=== PATIENT | male | born 1950 | race Caucasian/White ===

== ENCOUNTER 2019-11-23 07:00 | Day surgery (SDC) | payer OTHER ==
[2019-11-21 16:52] LABS: Absolute Lymphocytes (CBC) 2.8 K/uL (0.7-4.9); Basophils % 0.5 % (0-1.3); Lymphocytes % 29.6 % (15.3-44.8); MPV 7.8 fL (7.6-11.3); RBC Red Blood Cell Count 4.38 M/uL (4.33-5.43)
[2019-11-23] MEDS ORDERED: NA CHLORIDE 0.9% 500 ML ONE (07:19)
[2019-11-23] MEDS ORDERED: FLUMAZENIL 0.1 MG/ML (5 mL VIAL) IV ONE (07:40)
[2019-11-23] MEDS ORDERED: MIDAZOLAM HCL 5 MG/5 ML INJ ONE ×2 (07:41)
[2019-11-23] MEDS ORDERED: ATROPINE SULF 1 MG/10 ML SYR IV ONE (07:41)
[2019-11-23 09:13] VITALS: O2SAT 97
[2019-11-23 09:50] VITALS: BP 100/59; TEMP 97.4
--- NOTE | 2019-11-23 12:15 | OP ---
Surgeon: Raj Olivarez MD Procedure: Direct current cardioversion. Indication: Atrial flutter refractory to amiodarone. The patient had been on Xarelto for at least 3 weeks. Procedure In Detail: The patient was brought to the cardiac laborer brush clearing fasting, sedated with Versed 7 mg, titrated to an adequate level of sedation. Anterior-posterior paddles were used, applied to the chest with adhesive. Anterior-posterior single shock was given through the paddles. Synchronized wi th the QRS complex. This resulted in sinus rhythm. 70 joules was used. At the end of the procedure , there were no complications. No blood loss. BRIAN/MODL Voice ID: [id number] Report ID: [id number]
--- NOTE | 2019-11-23 14:00 | EKG ---
Test Date: 2019-11-23 Test Time: 07:55:49 Automotive Electrical Helper: HUSSEIN MEASUREMENT RESULTS: Intervals: Rate: 60 HI: 202 QRSD: 150 QT: 460 QTc: 460 [place]: P: 76 HI: 202 QRS: -56 T: -11 INTERPRETIVE STATEMENTS: Sinus rhythm with occasional premature ventricular complexes Right bundle branch block Left axis Abnormal ECG Compared to ECG 11/03/2019 14:46:17 Ventricular premature complex(es) now present Atrial fibrillation no longer present Electronically Signed On 11-23-19 13:58:54 BILLING SERVICES MANAGER by Raj Olivarez
== END 2019-11-23 09:35 | disposition home health service (06) ==
LOC: CCL 07:00
PROVIDERS: ATTEND Internal Medicine
DX: I48.92 Unspecified atrial flutter (principal); I25.10 Atherosclerotic heart disease of native coronary artery without angina pectoris; Z79.01 Long term (current) use of anticoagulants
CPT/HCPCS: 93005; 85025; 80048; 36415; 85730; 92960; J2250 ×2; J7040

== ENCOUNTER 2019-12-12 07:45 | Emergency (ER) | payer OTHER ==
[2019-12-12] MEDS ORDERED: NA CHLORIDE 0.9% 1,000 ML ONE (08:34)
[2019-12-12 08:38] LABS: Absolute Lymphocytes (CBC) 2.2 K/uL (0.7-4.9); Basophils % 0.3 % (0-1.3); Hematocrit 37.3 % (39.6-49.0); Lymphocytes % 22.3 % (15.3-44.8); MPV 7.8 fL (7.6-11.3)
[2019-12-12 08:40] LABS: Protime INR 1.9
[2019-12-12 08:59] LABS: Albumin 3.2 g/dL (3.4-5.0); Bilirubin Direct 0.3 mg/dL (0-0.2); Bilirubin Total 0.8 mg/dL (0.2-1.0); Magnesium 2.1 mg/dL (1.8-2.4); Potassium 3.9 mmol/L (3.5-5.1); Protein, Total 7.1 g/dL (6.4-8.2)
[2019-12-12 09:02] LABS: Troponin (Emerg Dept Use Only) 23.5 ng/mL (0.0-0.045)
--- NOTE | 2019-12-12 09:20 | EKG ---
Test Date: 2019-12-12 Test Time: 08:42:19 [employer] Exchange Administrator: HUSSEIN MEASUREMENT RESULTS: Intervals: Rate: 66 ME: 198 QRSD: 144 QT: 466 QTc: 488 [place]: P: 71 ME: 198 QRS: -67 T: 28 INTERPRETIVE STATEMENTS: Normal sinus rhythm Right bundle branch block Left axis Abnormal ECG Compared to ECG 11/23/2019 07:55:49 Ventricular premature complex(es) no longer present Electronically Signed On 12-12-19 09:19:40 PLANT ETIOLOGIST by Raj Olivarez
--- NOTE | 2019-12-12 09:22 | RAD REPORT ---
EXAM DESCRIPTION: Lyubov Single View12/12/2019 9:12 am CLINICAL HISTORY: Cough COMPARISON: 2017 FINDINGS: Small pleural effusions. Fluid is present within the right major fissure. The lungs appear clear of acute infiltrate. The heart is borderline enlarged
--- NOTE | 2019-12-12 09:34 | RAD REPORT ---
EXAM DESCRIPTION: US - Lower Extremity Artery Uni Ltd - 12/12/2019 8:45 am CLINICAL HISTORY: Right leg pain. Right groin swelling. COMPARISON: None FINDINGS: The waveforms of the right common femoral, right superficial femoral, right popliteal, rig ht posterior tibial and right dorsalis pedis arteries are triphasic. A pseudo aneurysm is not seen. IMPRESSION: Unremarkable exam
--- NOTE | 2019-12-12 10:06 | ER ---
Nurse's Notes [facility] Name: Simba Olson Age: 69 yrs Sex: Male : 1950 Arrival Date: 12/12/2019 Time: 07:46 Bed 6 Private MD: Marylin Carranza C Diagnosis: Postprocedural hemorrhage and hematoma of skin and subcutaneous tissue following other procedure-abalation;Pleural effusion in conditions classified elsewhere Presentation: 12/12 08:04 Presenting complaint: Patient states: Ablation done on Thursday at [facility], released on jl7 Thursday, woke up this morning and was walking around, reports feeling a "heaviness in my groin" and the right femoral access site doubled in size within 10 minutes. Transition of care: patient was not received from another setting of care. Onset of symptoms was December 12, 2019. Risk Assessment: Do you want to hurt yourself or someone else? Patient reports no desire to harm self or others. Initial Sepsis Screen: Does the patient meet any 2 criteria? No. Patient's initial sepsis screen is negative. Does the patient have a suspected source of infection? No. Patient's initial sepsis screen is negative. Care prior to arrival: None. 08:04 Method Of Arrival: Wheelchair [facility] 08:04 Acuity: BRIA 3 jl7 Triage Assessment: 08:09 General: Appears in no apparent distress. uncomfortable, Behavior is calm, cooperative, jl7 appropriate for age. Pain: Denies pain. Neuro: Level of Consciousness is awake, alert, obeys commands, Oriented to person, place, time, situation. Cardiovascular: Patient's skin is warm and dry. Respiratory: Airway is patent Respiratory effort is even, unlabored, Respiratory pattern is regular, symmetrical. Derm: Skin is pink, warm \\T\\ dry. Musculoskeletal: Swelling present in right femoral area. Historical: - Allergies: 08:09 pseudoephedrine HCl; jl7 - Home Meds: 08:09 levothyroxine 50 mcg oral tab [Active]; lisinopril 10 mg Oral tab 1 tab [Active]; jl7 metoprolol tartrate 25 mg oral tab [Active]; amiodarone 100 mg Oral tab 1 tab 2 times per day [Active]; Xarelto 20 mg oral tab 1 tab once daily [Active]; - PMHx: 08:09 Atrial Fib; colon cancer; Hyperlipidemia; Hypertension; LYMPHOMA; Hypothyroidism; jl7 - PSHx: 08:09 Cardiac abation 12-09-2019; jl7 - Immunization history:: Adult Immunizations up to date. - Coronavirus screen:: The patient has NOT traveled to [place], [place], or [place] in the past 14 days. Proceed with normal triage process as indicated. - Social history:: Smoking status: Patient denies any tobacco usage or history of. - Family history:: not pertinent. - Ebola Screening: : No symptoms or risks identified at this time. Screenin:13 Abuse screen: Denies threats or abuse. Denies injuries from another. Nutritional jl7 screening: No deficits noted. Tuberculosis screening: No symptoms or risk factors identified. Fall Risk IV access (20 points). Total Christine Fall Scale indicates No Risk (0-24 pts). Assessment: 08:10 General: Appears in no apparent distress. comfortable, Behavior is calm, cooperative, em Denies fever. Pain: Complains of pain in chest Pain currently is 3 out of 10 on a pain scale. Pain began 2-3 days ago. Neuro: Level of Consciousness is awake, alert, obeys commands, Oriented to person, place, time, situation, Appropriate for age. Cardiovascular: Denies chest pain, nausea, shortness of breath, Capillary refill < 3 seconds Patient's skin is warm and dry. Pulses are all present. Rhythm is sinus rhythm. Respiratory: Airway is patent Respiratory effort is even, unlabored, Respiratory pattern is regular, symmetrical. GI: Patient currently denies nausea, vomiting. Derm: Skin is intact, is healthy with good turgor, Skin is pink, warm \\T\\ dry. Bruising that is on right inner thigh purple. Musculoskeletal: Swelling present in right inner thigh. 09:08 Reassessment: Patient appears in no apparent distress at this time. Patient and/or em family updated on plan of care and expected duration. Pain level reassessed. Patient is alert, oriented x 3, equal unlabored respirations, skin warm/dry/pink. 10:20 Reassessment: Patient appears in no apparent distress at this time. Patient and/or em family updated on plan of care and expected duration. Pain level reassessed. Patient is alert, oriented x 3, equal unlabored respirations, skin warm/dry/pink. Patient denies pain at this time. Vital Signs: 08:09 BP 128 / 74; Pulse 97; Resp 17 S; Temp 98(O); Pulse Ox 97% on R/A; Weight 102.51 kg jl7 (R); Height 6 ft. 1 in. (185.42 cm) (R); Pain 0/10; 08:51 BP 112 / 71; Pulse 69; Resp 18; Pulse Ox 97% on R/A; Pain 0/10; em 10:03 BP 112 / 68; Pulse 66; Resp 15 S; Pulse Ox 95% on R/A; jl7 08:09 Body Mass Index 29.82 (102.51 kg, 185.42 cm) jl7 ED Course: 07:46 Patient arrived in ED. rg4 07:46 Marylin Carranza MD is Private Physician. rg4 07:54 Felix Vu MD is Attending Physician. mandeep 07:56 Sd Jolly, RN is Primary Nurse. em 08:04 Primary Nurse role handed off by Sd Jolly RN jl7 08:04 Umm Harrell RN is Primary Nurse. jl7 08:06 Triage completed. jl7 08:13 Arm band placed on right wrist. jl7 08:13 Patient has correct armband on for positive identification. Placed in gown. Bed in low jl7 position. Call light in reach. Side rails up X2. playground monitor on. Pulse ox on. NIBP on. Warm blanket given. 08:14 Sd Jolly, RN is Primary Nurse. em 08:15 Sd Jolly, GRABIEL is Primary Nurse. em 08:15 Missed attempt(s): 20 gauge in right forearm. Bleeding controlled, band aid applied, em catheter tip intact. 08:20 Inserted saline lock: 20 gauge in left forearm, using aseptic technique. Blood em collected. 09:15 X-ray completed. Portable x-ray completed in exam room. Patient tolerated procedure jb2 well. 09:51 EKG done, by photographic equipment technician. reviewed by Felix Vu MD. at1 10:03 Marylin Carranza MD is Referral Physician. mandeep 10:23 No provider procedures requiring assistance completed. IV discontinued, intact, em bleeding controlled, No redness/swelling at site. Pressure dressing applied. Administered Medications: 08:45 Drug: NS 0.9% 1000 ml Route: IV; Rate: 125 ml/hr; Site: left forearm; em 10:22 Follow up: IV Status: Order to discontinue infusion; IV Intake: 200ml em Intake: 10: IV: 200ml; Total: 200ml. em Outcome: 10:06 Discharge ordered by . mandeep 10:23 Discharged to home via wheelchair, with family. em 10:23 Condition: good 10:23 Discharge instructions given to patient, family, Instructed on discharge instructions, follow up and referral plans. Demonstrated understanding of instructions, follow-up care. 10:33 Patient left the ED. em Signatures: Felix Vu MD MD cha Buechter, Jesse jb2 Sd Jolly, RN RN em Cheyanne Scott, naval aircrewman operator EKG Tat1 Mare [id number] Umm Harrell RN RN jl7
--- NOTE | 2019-12-12 10:07 | EDPHYS ---
Physician Documentation [facility] Name: Simba Olson Age: 69 yrs Sex: Male : 1950 Arrival Date: 12/12/2019 Time: 07:46 Bed 6 Private MD: Marylin Carranza C ED Physician Felix Vu HPI: 12/12 08:44 This 69 yrs old Male presents to ER via Wheelchair with complaints of Post mandeep Surgical Bleeding. 08:44 The patient presents with pain, swelling, tenderness. The complaints affect the right [facility] upper thigh. Context: The problem was sustained cath right groin,increasing in size. Historical: - Allergies: 08:09 pseudoephedrine HCl; jl7 - Home Meds: 08:09 levothyroxine 50 mcg oral tab [Active]; lisinopril 10 mg Oral tab 1 tab [Active]; jl7 metoprolol tartrate 25 mg oral tab [Active]; amiodarone 100 mg Oral tab 1 tab 2 times per day [Active]; Xarelto 20 mg oral tab 1 tab once daily [Active]; - PMHx: 08:09 Atrial Fib; colon cancer; Hyperlipidemia; Hypertension; LYMPHOMA; Hypothyroidism; jl7 - PSHx: 08:09 Cardiac abation 12-09-2019; jl7 - Immunization history:: Adult Immunizations up to date. - Coronavirus screen:: The patient has NOT traveled to [place], [place], or [place] in the past 14 days. Proceed with normal triage process as indicated. - Social history:: Smoking status: Patient denies any tobacco usage or history of. - Family history:: not pertinent. - Ebola Screening: : No symptoms or risks identified at this time. ROS: 08:44 Constitutional: Negative for fever, chills, and weight loss, Eyes: Negative for injury, mandeep pain, redness, and discharge, ENT: Negative for injury, pain, and discharge, Neck: Negative for injury, pain, and swelling, Cardiovascular: Negative for chest pain, palpitations, and edema, Respiratory: Negative for shortness of breath, cough, wheezing, and pleuritic chest pain, Abdomen/GI: Negative for abdominal pain, nausea, vomiting, diarrhea, and constipation, Back: Negative for injury and pain, : Negative for injury, bleeding, discharge, and swelling, Skin: Negative for injury, rash, and discoloration, Neuro: Negative for headache, weakness, numbness, tingling, and seizure, Psych: Negative for depression, anxiety, suicide ideation, homicidal ideation, and hallucinations, Allergy/Immunology: Negative for hives, rash, and allergies, Endocrine: Negative for neck swelling, polydipsia, polyuria, polyphagia, and marked weight changes, Hematologic/Lymphatic: Negative for swollen nodes, abnormal bleeding, and unusual bruising. 08:44 MS/extremity: Positive for pain, swelling, tenderness, of the right upper thigh. Exam: 08:44 Constitutional: This is a well developed, well nourished patient who is awake, alert, mandeep and in no acute distress. Head/Face: Normocephalic, atraumatic. Eyes: Pupils equal round and reactive to light, extra-ocular motions intact. Lids and lashes normal. Conjunctiva and sclera are non-icteric and not injected. Cornea within normal limits. Periorbital areas with no swelling, redness, or edema. ENT: Nares patent. No nasal discharge, no septal abnormalities noted. Tympanic membranes are normal and external auditory canals are clear. Oropharynx with no redness, swelling, or masses, exudates, or evidence of obstruction, uvula midline. Mucous membranes moist. Neck: Trachea midline, no thyromegaly or masses palpated, and no cervical lymphadenopathy. Supple, full range of motion without nuchal rigidity, or vertebral point tenderness. No Meningismus. Chest/axilla: Normal chest wall appearance and motion. Nontender with no deformity. No lesions are appreciated. Cardiovascular: Regular rate and rhythm with a normal S1 and S2. No gallops, murmurs, or rubs. Normal PMI, no JVD. No pulse deficits. Respiratory: Lungs have equal breath sounds bilaterally, clear to auscultation and percussion. No rales, rhonchi or wheezes noted. No increased work of breathing, no retractions or nasal flaring. Abdomen/GI: Soft, non-tender, with normal bowel sounds. No distension or tympany. No guarding or rebound. No evidence of tenderness throughout. Back: No spinal tenderness. No costovertebral tenderness. Full range of motion. Male : Normal genitalia with no discharge or lesions. Skin: Warm, dry with normal turgor. Normal color with no rashes, no lesions, and no evidence of cellulitis. Neuro: Awake and alert, GCS 15, oriented to person, place, time, and situation. Cranial nerves II-XII grossly intact. Motor strength 5/5 in all extremities. Sensory grossly intact. Cerebellar exam normal. Normal gait. Psych: Awake, alert, with orientation to person, place and time. Behavior, mood, and affect are within normal limits. 08:44 Musculoskeletal/extremity: Extremities: all appear grossly normal, with no appreciated pain with palpation, ROM: no acute changes, Circulation is intact in all extremities. Sensation intact. Compartment Syndrome exam of affected extremity: is normal. DVT Exam: pain, swelling, tenderness, that is moderate, of the right leg, of the right upper thigh. Vital Signs: 08:09 BP 128 / 74; Pulse 97; Resp 17 S; Temp 98(O); Pulse Ox 97% on R/A; Weight 102.51 kg jl7 (R); Height 6 ft. 1 in. (185.42 cm) (R); Pain 0/10; 08:51 BP 112 / 71; Pulse 69; Resp 18; Pulse Ox 97% on R/A; Pain 0/10; em 10:03 BP 112 / 68; Pulse 66; Resp 15 S; Pulse Ox 95% on R/A; jl7 08:09 Body Mass Index 29.82 (102.51 kg, 185.42 cm) jl7 MDM: 07:54 Patient medically screened. [facility] 08:48 Data reviewed: vital signs, nurses notes, lab test result(s), EKG, radiologic studies, mandeep doppler, plain films. 12/12 07:57 Order name: Basic Metabolic Panel [facility] 12/12 07:57 Order name: CBC with Diff 12/12 07:57 Order name: LFT's [facility] 12/12 07:57 Order name: Magnesium mandeep 12/12 07:57 Order name: NT PRO-BNP [facility] 12/12 07:57 Order name: PT-INR [facility] 12/12 07:57 Order name: Troponin (emerg Dept Use Only) [facility] 12/12 08:41 Order name: Protime (+INR); Complete Time: 08:43 EDPA 12/12 08:41 Order name: CBC with Automated Diff; Complete Time: 08:43 EDPA 12/12 09:04 Order name: Basic Metabolic Panel; Complete Time: 09:21 EDMS 12/12 09:04 Order name: Liver (Hepatic) Function; Complete Time: 09:21 EDMS 12/12 09:05 Order name: Troponin (Emerg Dept Use Only); Complete Time: 09:21 EDMS 12/12 09:05 Order name: NT PRO-BNP; Complete Time: 09:21 EDMS 12/12 09:05 Order name: Magnesium; Complete Time: 09:21 EDMS 12/12 07:57 Order name: XRAY Chest (1 view) [facility] 12/12 07:57 Order name: EKG; Complete Time: 07:58 [facility] 12/12 07:57 Order name: Cardiac monitoring; Complete Time: 08:26 [facility] 12/12 07:57 Order name: EKG - Nurse/Tech; Complete Time: 08:51 [facility] 12/12 07:57 Order name: IV Saline Lock; Complete Time: 08:26 [facility] 12/12 07:57 Order name: Labs collected and sent; Complete Time: 08:26 [facility] 12/12 07:57 Order name: O2 Per Protocol; Complete Time: 08:26 [facility] 12/12 07:57 Order name: O2 Sat Monitoring; Complete Time: 08:26 [facility] 12/12 07:57 Order name: US LE Artery Uni Ltd mandeep 12/12 09:27 Order name: RAD; Complete Time: 09:59 EDMS 12/12 09:44 Order name: US; Complete Time: 09:59 EDMS Administered Medications: 08:45 Drug: NS 0.9% 1000 ml Route: IV; Rate: 125 ml/hr; Site: left forearm; em 10:22 Follow up: IV Status: Order to discontinue infusion; IV Intake: 200ml em Disposition: 12/12/19 10:06 Discharged to Home. Impression: Postprocedural hemorrhage and hematoma of skin and subcutaneous tissue following other procedure - abalation, Pleural effusion in conditions classified elsewhere. - Condition is Stable. - Discharge Instructions: Hematoma, Hematoma, [id number], Pleural Effusion. - Medication Reconciliation Form, Thank You Letter, Antibiotic Education, Prescription Opioid Use form. - Follow up: Marylin Carranza MD; When: 2 - 3 days; Reason: Recheck today's complaints, Continuance of care, Re-evaluation by your physician. Follow up: Private Physician; When: 1 - 2 days; Reason: Recheck today's complaints, Re-evaluation by your physician. - Problem is new. - Symptoms have improved. Signatures: Dispatcher [employer] Felix Purvis MD MD cha Munoz, Edgar RN RN Umm Mitchell RN RN jl7 Corrections: (The following items were deleted from the chart) 10:07 10:06 12/12/2019 10:06 Discharged to Home. Impression: Postprocedural hemorrhage and mandeep hematoma of skin and subcutaneous tissue following other procedure - abalation. Condition is Stable. Forms are Medication Reconciliation Form, Thank You Letter, Antibiotic Education, Prescription Opioid Use. Follow up: A Carranza; When: 2 - 3 days; Reason: Recheck today's complaints, Continuance of care, Re-evaluation by your physician. Follow up: Private Physician; When: 1 - 2 days; Reason: Recheck today's complaints, Re-evaluation by your physician. Problem is new. Symptoms have improved. mandeep 10:22 07:57 Urine Dipstick-Ancillary ordered. mandeep em 10:33 10:07 12/12/2019 10:06 Discharged to Home. Impression: Postprocedural hemorrhage and em hematoma of skin and subcutaneous tissue following other procedure - abalation; Pleural effusion in conditions classified elsewhere. Condition is Stable. Discharge Instructions: Hematoma, Hematoma, Nior-th-Yots. Forms are Medication Reconciliation Form, Thank You Letter, Antibiotic Education, Prescription Opioid Use. Follow up: A Carranza; When: 2 - 3 days; Reason: Recheck today's complaints, Continuance of care, Re-evaluation by your physician. Follow up: Private Physician; When: 1 - 2 days; Reason: Recheck today's complaints, Re-evaluation by your physician. Problem is new. Symptoms have improved. mandeep
[2019-12-12 10:40] VITALS: TEMP 98
[2019-12-12 10:43] VITALS: BP 112/68; O2SAT 95
== END 2019-12-12 10:33 | disposition home or self-care (01) ==
LOC: ER 07:45
DX: L76.32 Postprocedural hematoma of skin and subcutaneous tissue following other procedure (principal); J91.8 Pleural effusion in other conditions classified elsewhere; I10 Essential (primary) hypertension; E78.5 Hyperlipidemia, unspecified; E03.9 Hypothyroidism, unspecified; I48.91 Unspecified atrial fibrillation; Z85.038 Personal history of other malignant neoplasm of large intestine; Z79.01 Long term (current) use of anticoagulants; Z88.8 Allergy status to other drugs, medicaments and biological substances
CPT/HCPCS: 96361; 93005; 85025; 80048; 36415; 83735; 85610; 80076; 84484; 83880; 71045; 93926; 96360; 99284; J7030

== ENCOUNTER 2020-03-09 07:33 | Day surgery (SDC) | payer OTHER ==
--- OUTSIDE RECORDS SUMMARY | 2020-03-09 07:36 | XMS REPORT | Clinical Summary ---
:1950 Author Organization [facility] Address [address] [place] [address] Care Team Providers Name Role Phone Jolene Carranza MD Primary Care Provider Allergies Active Allergy Reactions Severity Noted Date Comments Decongest-Aid Other (See Comments) High 02/22/2016 Afib Pseudoephedrine Hcl Other (See Comments) 10/02/2017 Causes Atrial fib Apixaban Rash Low 10/02/2017 Dabigatran Etexilate Rash Low 10/02/2017 Rivaroxaban Rash Low 10/02/2017 Medications Medication Sig Dispensed Refills Start End Date Status Date amIODarone Take 100 mg by 0 Acti ve (PACERONE) 100 MG mouth 2 (two) 7 tablet times a day. levothyroxine Take 50 mcg by 0 A ctive (SYNTHROID) 50 mcg mouth daily. 7 tablet rivaroxaban Take 20 mg by 0 Acti ve (XARELTO) 20 mg mouth daily. tablet lisinopril Take 10 mg by 0 Activ e (PRINIVIL) 10 mg mouth daily. tablet docusate sodium Take 300 mg by 0 Active (COLACE) 100 MG mouth daily. capsule melatonin Take 1.5 mg by 0 Activ e (MELATIN) 3 mg mouth nightly. tablet TURMERIC ORAL Take 5 mL by 0 Act richardson mouth daily. 1 teaspoon daily of powder flaxseed powder Take by mouth. 1 0 Active teaspoon daily rosuvastatin Take 5 mg by 6 12/07/19 Disc ontinued (CRESTOR) 5 MG mouth nightly. 7 20 tablet spironolactone Take 25 mg by 3 12/07/19 D iscontinued (ALDACTONE) 25 MG mouth nightly. 7 20 tablet DOCUSATE SODIUM Take 1 capsule 0 12/07/19 Discontinued ORAL by mouth 20 nightly. vitamin E 400 UNIT Take 400 Units 0 Discontinued capsule by mouth daily. 20 multivitamin with Take 1 tablet by 0 12/07 Discontinued minerals tablet mouth daily. 20 aspirin (ECOTRIN) Take 325 mg by 0 0 Discontinued 325 MG enteric mouth daily. 20 coated tablet FLUZONE HIGH-DOSE TO BE 0 12/09/19 Di scontinued 2016-, PF, 180 ADMINISTERED BY 7 20 mcg/0.5 mL syringe PHARMACIST FOR vaccine IMMUNIZATION metoprolol Take 50 mg by 0 12/10/19 Disco ntinued succinate XL mouth 2 (two) 20 (St op Taking at (TOPROL-XL) 50 mg times a day. Discharge) 24 hr tablet colchicine 0.6 mg Take 0.5 tablets 60 tablet 1 01/08 tablet (0.3 mg total) 0 20 by mouth 2 (two) times a day as needed (chest pain post ablation) for up to 30 days. pantoprazole Take 1 tablet 60 tablet 0 01/09/20 Exp ired (PROTONIX) 40 MG (40 mg total) by 0 20 EC tablet mouth 2 (two) times a day for 30 days. ranolazine Take 1 tablet 60 tablet 0 01/09/20 Expir ed (RANEXA) 500 MG 12 (500 mg total) 0 20 hr ER tablet by mouth 2 (two) times a day for 30 days. Active Problems Problem Noted Date Persistent atrial fibrillation 12/09/2019 Status post colostomy takedown 10/15/2017 Hematoma 10/15/2017 Malignant lymphomatous polyposis 10/06/2017 Bilateral carpal tunnel syndrome Cervical radiculopathy at C7 Encounters Date Type Specialty Care Team Description 12/13/2019 Hospital Encounter Procedural Aziza Orozco MD Hematom a Cardiology 12/13/2019 Transcribe Orders Procedural Aziza Orozco MD Hematoma (Primary Cardiology Dx) 12/09/2019 Anesthesia Event Procedural María Artis MD 12/09/2019 Surgery Procedural Aziza Orozco MD EP COMPLETE E P Cardiology STUDY W ABLATIO N PULMONARY VEIN [[id number] (CPT)] 12/09/2019 - Hospital Encounter Cardiology Aziza Orozco MD Persist ent atrial fibrillation; 12/10/2019 Typical atrial flutter (HCC) after 03/09/2019 Family History Medical History Relation Name Comments Heart disease Father Hypertension Father Stroke Father Arthritis Mother Hypertension Mother Stroke Mother Relation Name Status Comments Father Mother Social History Tobacco Use Types Packs/Day Years Used Date Never Smoker Smokeless Tobacco: Never Used Alcohol Use Drinks/Week oz/Week Comments Yes 2 Cans of beer 2.0 2 glasses/month Sex Assigned at Date Recorded Not on file Job Start Date Occupation Industry Not on file Not on file Not on file Travel History Travel Start Travel End No recent travel history available. Last Filed Vital Signs Vital Sign Reading Time Taken Comments Blood Pressure 100/56 12/10/2019 7:00 AM [employer] Pulse 58 12/10/2019 8:01 AM [employer] Temperature 35.6 C (96.1 F) 12/10/2019 7:00 AM [employer] Respiratory Rate 20 12/10/2019 7:00 AM [employer] Oxygen Saturation 100% 12/10/2019 7:00 AM [employer] Inhaled Oxygen Concentration - - Weight 103 kg (227 lb 8 oz) 12/10/2019 5:30 AM [employer] Height 185.4 cm (6' 1") 12/09/2019 9:06 AM [employer] Body Mass Index 30.02 12/09/2019 9:06 AM [employer] Plan of Treatment Health Maintenance Due Date Last Done Comments SHINGLES VACCINES (#1) 1999 65+ PNEUMOCOCCAL VACCINE (1 of 2 - PCV13) 2014 INFLUENZA VACCINE 06/02/2020 COLONOSCOPY SCREENING 09/21/2022 09/21/2017 Procedures Procedure Name Priority Date/Time Associated Comments Diagnosis US DUPLEX ARTERIAL Routine 12/13/2019 2:10 Hematoma Resul ts for this LOWER EXTREMITY RIGHT PM [employer] proced ure are in the results section. HC COMPLETE BLD COUNT Routine 12/10/2019 5:35 Re sults for this W/AUTO DIFF AM [employer] procedure are i n the results section. ESTIMATED GFR Routine 12/10/2019 4:00 Results fo r this AM [employer] procedure are i n the results section. BASIC METABOLIC PANEL Routine 12/10/2019 4:00 Re sults for this AM [employer] procedure are i n the results section. ECG 12-LEAD STAT 12/09/2019 5:37 Results for this PM [employer] procedure are i n the results section. EP COMPLETE EP STUDY Routine 12/09/2019 5:03 Persistent atria l Results for this W ABLATION PULMONARY PM [employer] fibrillatio n procedure are in VEIN Typical atrial the results flutter (HCC) section. ACTIVATED CLOTTING Routine 12/09/2019 4:50 Resul ts for this TIME PM [employer] procedure are i n the results section. ACTIVATED CLOTTING Routine 12/09/2019 4:40 Resul ts for this TIME PM [employer] procedure are i n the results section. ACTIVATED CLOTTING Routine 12/09/2019 3:40 Resul ts for this TIME PM [employer] procedure are i n the results section. ACTIVATED CLOTTING Routine 12/09/2019 2:56 Resul ts for this TIME PM [employer] procedure are i n the results section. ACTIVATED CLOTTING Routine 12/09/2019 1:58 Resul ts for this TIME PM [employer] procedure are i n the results section. ACTIVATED CLOTTING Routine 12/09/2019 1:15 Resul ts for this TIME PM [employer] procedure are i n the results section. ACTIVATED CLOTTING Routine 12/09/2019 12:37 Resul ts for this TIME PM [employer] procedure are i n the results section. ACTIVATED CLOTTING Routine 12/09/2019 12:29 Resul ts for this TIME PM [employer] procedure are i n the results section. ARTERIAL LINE Routine 12/09/2019 11:42 Results fo r this AM [employer] procedure are i n the results section. AR AN ELECTIVE Routine 12/09/2019 11:42 Results f or this ENDOTRACHEAL AIRWAY AM [employer] procedur e are in the results section. ACTIVATED CLOTTING Routine 12/09/2019 11:36 Resul ts for this TIME AM [employer] procedure are i n the results section. TYPE AND SCREEN STAT 12/09/2019 8:35 Results for this AM [employer] procedure are i n the results section. after 03/09/2019 Results Us duplex arterial lower extremity (12/13/2019 2:10 PM [employer]) Specimen Narrative Performed At [facility] Lower Extremity Arterial Duplex Report [id number] [facility], [address] [address] Pat.Name: SIMBA OLSON.ID: [id number] .Date: 12/13/2019 Refer.MD: AZIZA OROZCO MD Exam Time: 1:30:00 PM Study Type:L E Arterial Height: 73in Weight: 227lb BSA: 2.27 m2 Ag e: 1950,69Y Sex: MALE Sonogr phr: Александр Machado, RVT, RDMS Pat. Stat.:Outpatient Tape Vol: , [facility] - 4: [address] Echo Steph nt ID:[id number] Order ID: [id number] Reason for Study:HEMATOMA RIGHT GROIN. P MH of CHF, HTN, lymphoma, afib. Procedures: Colorflow, Grayscale/2D, Pul sed wave Doppler Race: C SUMMARY: DUPLEX SCAN OBSERVATIONS: RIGHT GROIN: There is suboptima visual ization of the common femoral artery and vein with patency noted and n ormal Doppler signals and colorflow. No evidence of a traumatic fistula, pseudoaneurysm or hematoma noted superficial to the common femoral artery and vein. PRELIMINARY FINDINGS: 1. No evidence of a traumatic fistula, p seudoaneurysm or hematoma noted in right groin. 2. Patency of the right common femoral a rtery and vein. 3. Multiple lymph node-like structures n oted in the right groin; largest 6.7 x 1.3 x 1.6 cm. PHYSICIAN INTERPRETATION: Limited arterial duplex examination of t he right groin demonstrates no evidence of arterial occlusive disease, fistula, pseudoaneurysm or hematoma. Multiple avascular, hyperechoic nodules seen in right groin which likely represent lymph nodes. FINDINGS: MEASUREMENTS: DOPPLER Right CAR PRE COOLER Mid CAR PRE COOLER Mid PSV 85.2 cm/s Right Profunda Profunda PSV 50 cm/s Right SFA Prox SFA Prox PSV 68 cm/s Right SFA Mid SFA Mid PSV 81 cm/s Signed 12/13/2019 11:07 PM Abdirahman Modi MD, RPVI Procedure Note Interface, Radiology Results In - 2019 11:07 PM [facility] Vascular Ultrasound Laboratory Lower Extremity Arterial Duplex Report [id number] [place] [address] Pat.Name: SIMBA OLSON Pat.I D: [id number] St.Date: 12/13/2019 Refer .MD: AZIZA OROZCO MD Exam Time: 1:30:00 PM Study Type:LE Arterial Height: 73in Weigh t: 227lb BSA: 2.27 m2 Age: 7 1950,69Y Sex: MALE Sonog rphr: Александр Machado RVT, JACQUELINE Pat. Stat.:Outpatient Tape Vol: , CPT - 4: 52864 Echo Event ID:[id number] Order ID: [id number] Reason for Study:HEMATOMA RIGHT GROIN. P MH of CHF, HTN, lymphoma, afib. Procedures: Colorflow, Grayscale/2D, Pul sed wave Doppler Race: C SUMMARY: DUPLEX SCAN OBSERVATIONS: RIGHT GROIN: There is suboptima visuali zation of the common femoral artery and vein with patency noted and n ormal Doppler signals and colorflow. No evidence of a traumatic f istula, pseudoaneurysm or hematoma noted superficial to the common femoral artery and vein. PRELIMINARY FINDINGS: 1. No evidence of a traumatic fistula, p seudoaneurysm or hematoma noted in right groin. 2. Patency of the right common femoral a rtery and vein. 3. Multiple lymph node-like structures n oted in the right groin; largest 6.7 x 1.3 x 1.6 cm. PHYSICIAN INTERPRETATION: Limited arterial duplex examination of t he right groin demonstrates no evidence of arterial occlusive disease, fistula, pseudoaneurysm or hematoma. Multiple avascular, hyperechoic nodules seen in right groin which likely represent lymph nodes. FINDINGS: MEASUREMENTS: DOPPLER Right CAR PRE COOLER Mid CAR PRE COOLER Mid PSV 85.2 cm/s Right Profunda Profunda PSV 50 cm/s Right SFA Prox SFA Prox PSV 68 cm/s Right SFA Mid SFA Mid PSV 81 cm/s Signed 12/13/2019 11:07 PM Abdirahman Modi MD, RPVI Performing Organization Address City/State/Zipcode Phone Number [facility] [address] [place] [address] CBC with platelet and differential (12/10/2019 5:35 AM PRO[employer]GER [employer]) WBC 8.41 4.50 - 11.00 [facility] k/uL [facility] RBC 3.63 (L) 4.40 - 6.00 [facility] HGB 11.7 (L) 14.0 - 18.0 [facility] g/dL [facility] HCT 35.6 (L) 41.0 - 51.0 % [facility] MCV 98.1 82.0 - 100.0 [facility] MCH 32.2 27.0 - 34.0 pg [facility] MCHC 32.9 31.0 - 37.0 [facility] g/dL [facility] RDW - SD 47.2 37.0 - 55.0 fL [facility] MPV 9.5 8.8 - 13.2 fL [facility] Platelet count 190 150 - 400 k/uL [facility] Nucleated RBC 0.00 /100 WBC [facility] Neutrophils 59.9 39.0 - 69.0 % [facility] Lymphocytes 31.4 25.0 - 45.0 % [facility] Monocytes 7.6 0.0 - 10.0 % [facility] Eosinophils 0.7 0.0 - 5.0 % [facility] Basophils 0.2 0.0 - 1.0 % [facility] Immature granulocytes 0.2Comment: 0.0 - 1.0 % [facility] "Immature HOSPITAL granulocytes" (promyelocytes , myelocytes, metamyelocytes ) Specimen Blood Performing Organization Address City/[facility]/Zipcode Phone Number [facility] DEPARTMENT OF PATHOLOGY AND [address] [place] [address] [phone] [address] Estimated GFR (12/10/2019 4:00 AM PRO[employer]) Estimated GFR 56 (A) mL/min/1.73 [facility] Comment: m2 HOSPITAL Catergory Units Interpretation G1 >=90 Normal or high G2 60-89 Mildly decreased G3a 45-59 Mildly to moderately decreas ed G3b 30-44 Moderately to severely decre ased G4 15-29 Severely decreased G5 <15 Kidney failure The eGFR was calculated using the Chronic Kidney Disea se Epidemiology Collaboration (CKD-EPI) equation. Interpretation is based on recommendations of the National Kidney Foundation-Kidney Disease Outcomes Lopez lity Initiative (NKF-KDOQI) published in 2014. Specimen Plasma specimen Performing Organization Address City/[facility] Phone Number [facility] DEPARTMENT OF PATHOLOGY AND [address] [place], [place] [address] [address] Basic metabolic panel (12/10/2019 4:00 AM PRO[employer]) Pathologist Sig nature Sodium 138 135 - 148 mEq/L [facility] Potassium 4.2 3.5 - 5.0 mEq/L [facility] Chloride 104 98 - 112 mEq/L [facility] CO2 26 24 - 31 mEq/L [facility] Anion gap 8@ANIO 7 - 15 mEq/L [facility] BUN 18 8 - 23 mg/dL [facility] Creatinine 1.29 (H) 0.70 - 1.20 mg/dL [facility] Glucose 100 (H) 65 - 99 mg/dL [facility] Calcium 8.7 (L) 8.8 - 10.2 mg/dL [facility] Specimen Plasma specimen Performing Organization Address City/[facility]/Zipcode Phone Number [facility] DEPARTMENT OF PATHOLOGY AND [address] [place], [place] [address] GENOMIC MEDICINE [facility] [address] [place] [address] ECG 12 lead (12/09/2019 5:37 PM [employer]) Pathologist Sig nature Ventricular rate 62 [facility] Atrial rate 62 [facility] AR interval 204 [facility] QRSD interval 140 [facility] QT interval 434 [facility] QTC interval 440 [facility] P axis 1 23 [facility] QRS axis 1 -70 [facility] T wave axis 32 [facility] EKG impression Normal sinus rhythm-Right bu ndle branch block-Left anterior fascicular block-^^^ Bifascicular block ^^^-Inferior infarct , age undetermined- Abnormal ECG-In automated comparison with ECG of 09-DEC-2019 1 [facility] MUSE 7:32,-Inferior infarct is now present- :06 PM Specimen Narrative Performed At This result has an attachment that is no t available. Performing Organization Address City/[facility]/Zipcode Phone Number [facility] MUSE [address] [place] [address] Electrophysiology procedure (12/09/2019 5:03 PM [employer]) Specimen Impressions Performed At -Extensive atrial fibrillation ablation was successful PVI, posterior HM SYNGO wall isolation, CTI and anteroseptal mitral line ablation w ith block confirmed -Incessant CS micro-reentry tachycardia status post mota ccessful endocardial and epicardial ablation -Large areas of scar seen in the posteri or wall and anterior wall RECOMMENDATIONS: 1. Monitor on telemetry overnight 2. Bedrest for 2 hours after sheaths rem oval 3. Restart Xarelto in 4 hours 4. Lasix 20 mg IV when patie nt in recovery 5. Discontinue metoprolol 50 mg. Continue home dose of amiodarone. Add Ranexa 500 mg twice a day. Narrative Performed At This result has an attachment that is no t available. DATE OF OPERATION: December 09, 2019 SYNGO NEGATIVE RETOUCHER: Aziza Orozco MD PREOPERATIVE DIAGNOSES: -Persistent atrial fibrillation, symptomatic -Atrial flutter -Mantle cell lymphoma in the colon status post partial colectomy -History of chemo-induced cardiomyopathy, now recovere d. 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 -Hypertension PROCEDURES PERFORMED: -Ultrasound guided vascular access -Afib ablation with PVI and extrapulmonary ablation fo r PWI -Atrial flutter ablation x3 -3D mapping -Stimulation after drug infusion -Intra cardiac echocardiography (ICE) COMPLICATIONS: None ESTIMATED BLOOD LOSS: <30cc HISTORY OF PRESENT ILLNESS: In brief, this is a 69-yea r-old gentleman with history of symptomatic persistent atrial fibrillation refractory to amiodarone who presents for atrial fibrillation and fl utter ablation. PROCEDURE IN DETAIL: Consent was obtained from the pat ient after a full explanation of the risks and benefits of the procedure . The patient was brought to the electrophysiology lab in the doctors hospital. The patient was prepared and draped in a sterile fashion. General anes thesia with intratracheal ventilation administered by the anesthes ia service was used for the procedure. Esophageal temperature monitoring w as performed throughout the case using CIRCA catheter. Patient pres ented to the EP lab in what looked like atrial flutter. Sheaths were place d using modified Seldinger technique. Three venous sheaths (9Fr, long 7 Fr and long 10Fr sheath) were placed in the right femoral vein using ul trasound guidance without complication. A intracardiac echocardiography catheter (ICE) was inserted via the 10Fr sheath and advanced into the rig ht atrium and the right ventricle. At baseline, there was no pericardi al effusion and normal EF. Using SOUND, the CTI, CS os, fossa, LPVs, RPVs were marked. The left atrium was noted to be significantly enlarged and measured at 6.5cm. The ICE catheter was later used to guide transs eptal puncture and monitor for procedure complications. Next, the RFV 8Fr sheath was upgraded to a large curl Agilis sheath, through which a SmartTouch SF catheter, DF curve was a dvanced to the RA, and a Fast Anatomic Map (FAM) was done for the IVC, RA septum, fossa and SVC. A live wire duodecapolar diagnostic catheter was then advanced into the coronary sinus and lateral lateral randy. Activ ation of the Livewire noted that the right atrium was in organized flutter a nd the left atrium was in coarse atrial fibrillation. Next, we turned o ut attention to left sided access. After titrating heparin drip to achieve an ACT > 350 s ec, transseptal puncture was performed with [place] long needle (requir ing RF) using ICE guidance. Left (19 mmHg) atrial pressure was measured to assess intracardiac filling pressures. There were no compli cations. Following transseptal puncture, Agilis sheath was advanced into the LA, and the ablator was then exchanged to a DF Pentarray catheter. Patient was cardioverted first to NSR with 360J x2, unsuccessfully . We then decided to proceed ablation while in atrial fibrillation/flutt er. A detailed 3D electroanatomical and voltage map was cr eated while in A. fib/flutter rhythm in the left atrium using CARTO jalyn ing system. There was diffuse a area of scarring seen in the posterior w all and anterior wall. After exchanging the Pentarray to the ablation c atheter, we proceeded to pulmonary veins isolation. The left pulmo nary veins were circumferentially isolated as a common os using RF abl ation. The right pulmonary veins were circumferentially isolated as a c ommon os using RF ablation. Prior to ablation of right sided veins, paci ng was performed and right phrenic nerve course was avoided (PN was not cap tured at high output pacing prior to ablation). 40 W for 15-20 sec lesions and impedance drop of 10-15 ohms was targeted in the anterior sites, zaire figueroa Ablation Index ~400-500units. Posterior sites we used high power, s hort duration lesions (40-50W for 4-5 secs) were used. Posterior wall was th en isolated with roof and floor line between the 2 PVs. Additional lesi ons were needed at the roof and the middle of the PW to achieve isolation . At this time we proceeded with external cardioversion at this time the patient maintained normal sinus rhythm. While in normal rhythm all 4 ve ins were noted to be isolated successfully and no exit was noted with high output pacing at 25 mV at 2.0 ms. Similarly the posterior wall was also successfully isolated and no exit at high output pacing. Esophagus was noted to be close to the right inferior pulmonary vein. At this time the abla tion catheter was pulled into the right atrium and we proceeded with emp iric CTI line flutter ablation. Ablation was performed along the C TI line until a jump in EGMs were seen and bidirectional block was confirme d. Trans-block conduction was more than 204 ms. With Isuprel infusi on up to 20mcg/min, no vein reconnection and non-PV trigger was seen. Wi th CS burst pacing however atrial flutter was easily induced. There wer e multiple coexistent atrial flutters with different activations on the CS a nd different cycle length. A biatrial activation map was performed with no clear circuit seen at there was a lot of delay seen at the anterior septum and base of the appendage. Since the flutter was changing freque ntly in morphology, cycle length and degenerating into A. fib we decided t o proceed with empiric anteroseptal mitral line, in order to dissect the left atrial mass tissue for better flutter mapping. Ablation lesions were performed from the right superior pulmonary vein all the way to 12:00 on the mitral annulus until block was obtained. Residual flutter h owever was persistent this was tachycardia cycle length at 245 ms with activ ation on the CS proximal to distal that was switched to distal to prox imal with no change into tachycardia cycle length. Of note and since the beginning of the case the CS EGM's were noted to be extremely fractiona artis. We were unable to map the flutter cycle length endocardially and tiffany use of the switch on the activation of the CS without change on the cycle l ength was highly suggestive of possible epicardial micro-reentry flutte r around the CS. Ablation endocardially next to distal CS slowed the fl utter to 400 ms at times. Entrainment from different chambers of the he art including the left and the right atrium and different segment of the left atrium are all showed long return cycle length. At this time we dec ided to ablate aggressively endocardially in the inferior wall and th e inferior mitral wall along the lateral wall along the CS. The flutte r would terminate and will be reinitiated at multiple times during ablation there. So we decided to go in the CS to ablate epicardially. Despite multiple attempts of it was very hard to engag e the CS os due to very enlarged right atrium. In addition there was pr ominent ventricular branch and a small diameter of the GCV that would prev ent advancement of the ablation catheter. We decided to attempt engagem ent of the CS with an SL 1 and an irrigated noncontact catheter that is smal ler in diameter at 7.5 Latvian however could not advance further enough in to the CS despite multiple attempts. At this time we obtained a right IJ access using ultrasound and micropuncture kit through which a 9 Napoleon nch sheath was advanced to the SVC. ThermoCool EZ ablation catheter was advanced easily into the CS through this approach and ablation lesions were performed there along the distal CS all the way to the proximal CS. Tachycardia was no longer seen during this ablation after was incessan t throughout the case. At this time case was successfully concluded. AH erma sured 151 ms and HV measured 44 ms. Patient rhythm at the end of the rashel e were noted to be in stable junctional rhythm at 50 bpm. Post-procedure I CE showed no change. At this time, GA was stopped and patient was extubated ; No immediate complications. Protamine was given at the end of the p rocedure. Sheaths were pulled in the lab and figure of eight suture was placed. Patient was transferred to the PACU in a stable condition. Performing Organization Address [facility] Phone Number [facility] [address] [place] [address], Activated clotting time (12/09/2019 4:50 PM PROJECT MANAGER INTERIOR DESIGN)Only the most recent of9 resultswithin the time period is included. Activated clotting 133 96 - 152 sec [facility] Comment: [facility] Feeder Name: Anneliese Mcrae Device ID: [id number] Specimen Performing Organization Address [facility] Phone Number [facility] DEPARTMENT OF PATHOLOGY AND [address] [place] [phone] GENOMIC MEDICINE [address] [address] Arterial line (12/09/2019 11:42 AM PROJECT MANAGER INTERIOR DESIGN) Narrative Performed At María Artis MD 12/09/2019 11:44 AM Arterial line Performed by: María Artis MD Authorized by: María Artis MD Staff: Anesthesiologist: María Artis MD Resident/BODY REPAIRER/AA: Clementina Milan CRNA Performed by: Anesthesiologist and resident/BODY REPAIRER/AA Pre-procedure: patient identified, IV ch ecked, site and side verified, risks and benefits discussed, procedure verified, surgical consent complete, patient position confirmed, monitors and equ ipment checked and pre-op evaluation complete MSBT: antiseptic used, all elements of maximal sterile barrier technique followed, hand hygiene performed, cap/go wn used by other personnel and solutions labeled Indications: Indications: multiple ABGs Anesthesia: Anesthesia: General Procedure Details: Arterial Line placement: Placed pos t induction Line placement site: Radial Line placement side: Right Arterial line gauge: 20 G Number of attempts: 2 Ultrasound guidance used: Yes Post-procedure: Post-procedure: Sterile dressing ap plied Post procedure circulation, sensation , movement: Normal Patient tolerance: Patient tolerate d the procedure well with no immediate complications Notes: RIGHT RADIAL PLACED - UNABLE TO WIRE THE LINE SO CHECKED UNDER ULTRASOUND. SEVERE ATHEROMA TILL 3-4 INC HES PROXIMAL TO WRIST. SO LINE THEN PLACED UNDER ULTRASOUND Airway (12/09/2019 11:42 AM PROJECT MANAGER INTERIOR DESIGN) Narrative Performed At Clementina Milan CRNA 2:48 PM Airway Performed by: María Artis MD Authorized by: María Artis MD Location: OR Urgency: Elective Difficult Airway: No Anesthesiologist: María Artis MD Resident/BODY REPAIRER/AA: [place] Milan CRNA Performed by: anesthesiologist Preoxygenated with 100% O2: Yes C-spine Precautions Maintained Throughou t: Yes Mask Ventilation: Easy mask Final Airway Type: Endotracheal airway Final Endotracheal Airway: ETT Technique Used: Video laryngoscopy Devices/Methods Used in Placement: Int ubating stylet Insertion Site: Oral Blade Type: Pradeep Laryngoscope Blade/Videolaryngoscope Marvin de Size: 4 ETT Size (mm): 8.0 Measured from: Gums ETT to Gums (cm): 23 Placement Verified by: CO2 detection and direct visualization Laryngoscopic view: Grade I - full vie w of glottis Rapid Sequence Induction (RSI): No Modified RSI: No Number of Attempts at Approach: 1 Type and screen (12/09/2019 8:35 AM PROJECT MANAGER INTERIOR DESIGN) Pathologist Sig nature ABO grouping O [facility] Rh type POS [facility] Antibody screen (gel) NEG [facility] Specimen Blood Performing Organization Address City/State/Zipcode Phone Number [facility] DEPARTMENT OF PATHOLOGY AND [address] [place], [place] [address] GENOMIC MEDICINE [facility] [address] [place] [address] after 03/09/2019 Insurance Payer Benefit Plan / Subscriber ID Effective Dates Phone Addre ss Type Group MEDICARE MEDICARE PART A AND xxxxxxxxxxx 2014-[place] Medicare B t AETNA AETNA [employer] xxxxxx 2000-Presmellisa T[place] t [address] [facility] (Home) [facility] [phone] [place] [phone] (Work) Advance Directives For more information, please contact: [phone] Type Date Recorded Patient American History Professor Explanati on Advance Directives, 10/11/2017 7:58 AM Living Will and Medical Power of Bread Dumper Advance Directives, Living Will and Medical Power of Bread Dumper Advance Directives, 10/11/2017 7:58 AM Living Will and Medical Power of Bread Dumper
[2020-03-09] MEDS ORDERED: NA CHLORIDE 0.9% 500 ML ONE (08:29)
[2020-03-09 09:06] VITALS: TEMP 97.3
[2020-03-09 09:12] LABS: Absolute Lymphocytes (CBC) 5.4 K/uL (0.7-4.9); Basophils % 0.5 % (0-1.3); Hematocrit 41.5 % (39.6-49.0); Lymphocytes % 49.5 % (15.3-44.8); MPV 7.7 fL (7.6-11.3); RBC Red Blood Cell Count 4.48 M/uL (4.33-5.43)
[2020-03-09 09:16] LABS: Protime INR 1.42
[2020-03-09 09:20] LABS: Potassium 4.2 mmol/L (3.5-5.1)
[2020-03-09] MEDS ORDERED: ATROPINE SULF 1 MG/10 ML SYR IV ONE (09:23)
[2020-03-09] MEDS ORDERED: MIDAZOLAM HCL 5 MG/5 ML INJ ONE ×2 (09:23→09:24)
[2020-03-09] MEDS ORDERED: FLUMAZENIL 0.1 MG/ML (5 mL VIAL) IV ONE (09:23)
[2020-03-09 12:06] VITALS: O2SAT 96
[2020-03-09 12:30] VITALS: BP 118/74
[2020-03-09] MEDS ORDERED: LIDOCAINE 1% MPF 30 ML VIAL ONE (15:56)
[2020-03-09] MEDS ORDERED: HEPA 1000U/500MLS 1,000 UNIT/500 ML BAG IV ONE (15:56)
--- NOTE | 2020-03-10 01:09 | OP ---
Date of Procedure: 03/09/2020 Surgeon: Sid Martino MD [facility] Program Representative: Michelle Elena. Procedure: Direct current cardioversion. Indication: Atrial flutter with symptoms. History: Mr. Olson is a 69-year-old, has recently had an ablation by Dr. Robert at [facility]. He was recently taken off his amiodarone. He maintained Xarelto and a beta maria t, came back with recurrent atrial flutter at a rate of about 160, 24 hours ago. He was switched to sotalol 80 mg 1 p.o. b.i.d. Procedure In Detail: He was brought to the cardiovascular lab director today for cardioversion. He remained in atrial flutter with controlled ventricular response. He was prepped and draped, he was given Versed 7 mg IV for total sedation. He received 1 shock with 50 joules, which did not work and then another shock w ith 100 joules that converted him back to sinus rhythm with first-degree AV block. He tolerated the procedure well. There were no complications or blood loss. Total conscious sedation was 30 minutes. Final Diagnoses: Atrial flutter status post successful cardioversion to sinus rhythm. Patient will continue his sotalol 80 b.i.d. He will continue his Xarelto 20 mg daily. He will go home today when he wakes up. I will have him come see me in the office next week. The case was discussed with Dr. Robert. JESUS/BANG Voice ID: [id number] Report ID: [id number]
== END 2020-03-09 12:45 | disposition home or self-care (01) ==
LOC: CCL 07:33
DX: I48.92 Unspecified atrial flutter (principal); I10 Essential (primary) hypertension; Z79.01 Long term (current) use of anticoagulants
CPT/HCPCS: 85025; 80048; 36415; 85610; 85730; 92960; J2250 ×2; J7040; 93005

== ENCOUNTER 2022-09-01 19:01 | Emergency (ER) | payer OTHER ==
[2022-09-01] MEDS ORDERED: dexAMETHasone 10 MG/ML VIAL ONE (19:40)
[2022-09-01] MEDS ORDERED: NA CHLORIDE 0.9% 1,000 ML ONE (19:40)
--- NOTE | 2022-09-01 19:50 | ER ---
Nurse's Notes [facility] Name: Simba Olson Age: 72 yrs Sex: Male : 1950 Arrival Date: 09/01/2022 Time: 19:06 Bed 7 Private MD: Marylin Carranza C Diagnosis: Postprocedural hematoma of skin and subcutaneous tissue following other procedure-4 level ACDF Presentation: 09/01 19:23 Chief complaint: Patient states: Pt had ACDF procedure done on Thu, anterior neck began kb3 swelling last night. PT reports he is unable to swallow liquids at this time due to swelling. Coronavirus screen: Vaccine status: Patient reports receiving the 2nd dose of the covid vaccine. Client denies travel out of the [place] in the last 14 days. Ebola Screen: Patient negative for fever greater than or equal to 101.5 degrees Fahrenheit, and additional compatible Ebola Virus Disease symptoms Patient denies exposure to infectious person. Patient denies travel to an Ebola-affected area in the 21 days before illness onset. Initial Sepsis Screen: Does the patient meet any 2 criteria? No. Patient's initial sepsis screen is negative. Does the patient have a suspected source of infection? No. Patient's initial sepsis screen is negative. Risk Assessment: Do you want to hurt yourself or someone else? Patient reports no desire to harm self or others. Onset of symptoms was August 31, 2022. 19:23 Method Of Arrival: Wheelchair kb3 19:23 Acuity: BRIA 2 kb3 Triage Assessment: 19:24 General: Appears in no apparent distress. Behavior is calm, cooperative. Pain: kb3 Complains of pain in right aspect of thyroid, right sternocleidomastoid, left sternocleidomastoid, right posterior aspect of neck, right lateral aspect of neck, right anterior aspect of neck, left posterior aspect of neck, left lateral aspect of neck and left anterior aspect of neck Pain does not radiate. Pain currently is 8 out of 10 on a pain scale. Quality of pain is described as aching, sharp. Historical: - Allergies: 19:24 pseudoephedrine HCl; kb3 - Home Meds: 19:24 levothyroxine 50 mcg tab [Active]; sotalol 80 mg Oral tab 1 tab 2 times per day kb3 [Active]; aspirin 81 mg Oral cap 1 cap once daily [Active]; - PMHx: 19:24 Atrial Fib; colon cancer; Hyperlipidemia; Hypertension; Hypothyroidism; LYMPHOMA; kb3 - PSHx: 19:24 ACDF; kb3 - Immunization history:: Adult Immunizations up to date, Client reports receiving the 2nd dose of the Covid vaccine, Last tetanus immunization: up to date. - Social history:: Smoking status: Patient denies any tobacco usage or history of. Screenin:29 Abuse screen: Denies threats or abuse. Nutritional screening: No deficits noted. jj7 Difficulty chewing/swallowing? Yes. Tuberculosis screening: No symptoms or risk factors identified. Fall Risk None identified. Assessment: 19:30 General: Appears distressed, uncomfortable, Behavior is calm, cooperative, Hematoma jb4 noted to the right side of the neck. Covered by post surgical dressing.. Pain: Complains of pain in neck Pain does not radiate. Pain currently is 8 out of 10 on a pain scale. Neuro: Level of Consciousness is awake, alert, obeys commands, Oriented to person, place, time, situation, Speech Hoarse. Cardiovascular: Patient's skin is warm and dry. Respiratory: Airway is patent Respiratory effort is even, unlabored, Respiratory pattern is regular, symmetrical. GI: No signs and/or symptoms were reported involving the gastrointestinal system. : No signs and/or symptoms were reported regarding the genitourinary system. EENT: No signs and/or symptoms were reported regarding the EENT system. Derm: Skin is intact, Skin is pink, warm \T\ dry. Musculoskeletal: Circulation, motion, and sensation intact. Range of motion: intact in all extremities. 20:32 Reassessment: REPORT GIVEN TO NAYAN SIBLEY RN ER NURSE [facility]. jj7 Vital Signs: 19:23 BP 118 / 69; Pulse 73; Resp 20; Temp 98; Pulse Ox 98% ; Weight 89.36 kg; Height 6 ft. 1 kb3 in. (185.42 cm); Pain 8/10; 20:19 BP 111 / 76; Pulse 81; Resp 17; Pulse Ox 97% ; jj7 19:23 Body Mass Index 25.99 (89.36 kg, 185.42 cm) kb3 ED Course: 19:06 Patient arrived in ED. am2 19:06 Marylin Carranza MD is Private Physician. am2 19:13 Felix Vu MD is Attending Physician. mandeep 19:20 Patient has correct armband on for positive identification. Bed in low position. Call jj7 light in reach. Side rails up X2. Adult w/ patient. 19:20 No provider procedures requiring assistance completed. jj7 19:24 Triage completed. kb3 19:24 Arm band placed on right wrist. Patient placed in an exam room, on a stretcher. kb3 19:[address] Cabrales for Dr. Vu. mw2 19:25 Ilda Dennis, GRABIEL is Primary Nurse. jj7 19:[address] Vu with Dr. Cabrales. mw2 19:29 intiated a transfer with Cary from [facility]. mw2 19:[address] Vu with the ER Doctor from [facility]. mw2 19:35 administrative approval given by Cary Hopson/ patient has been accepted to [address] ER/ Dr. Cabrales accepted the patient in transfer/ report to be called to [phone]. 19:45 Initial lab(s) drawn, by ED staff, sent to lab. Inserted saline lock: 20 gauge in right jb4 antecubital area, using aseptic technique. Blood collected. By Reinaldo furniture upholsterer apprentice. 19:50 [facility] ETA 28 minutes. 2 20:00 Inserted saline lock: 18 gauge in right forearm, using aseptic technique. 4 20:32 Patient transferred, IV remains in place. jj7 Administered Medications: 19:52 Drug: NS 0.9% 1000 ml Route: IV; Rate: 125 ml/hr; Site: right antecubital; jb4 19:52 Drug: Decadron - Dexamethasone 10 mg Route: IVP; Site: right antecubital; jb4 20:01 Drug: Ancef (cefazolin) 1 grams Route: IVPB; Site: right antecubital; jj7 20:01 Drug: fentaNYL (PF) 25 mcg Route: IVP; Site: right forearm; jj7 20:07 Drug: Zofran (Ondansetron) 4 mg Route: IVP; Site: right forearm; jj7 Medication: 20:32 VIS not applicable for this client. jj7 Outcome: 19:50 ER care complete, transfer ordered by MD. mandeep 20:31 Transferred by helicopter to other acute care facility: [facility]. jj7 20:31 Condition: good 20:31 Instructed on the need for transfer, Demonstrated understanding of NEED FOR TRANSFER 20:34 Patient left the ED. jj7 Signatures: Felix Vu MD MD cha Bryson, James, RN RN jb4 Cheyanne Chawla am2 MartinezBritney santo 2 Annette Stern, RN RN kb3 Ilda Dennis RN RN jj7 Corrections: (The following items were deleted from the chart) 19:26 19:24 Home Meds: amiodarone 100 mg Oral tab 1 tab 2 times per day; kb3 kb3 19:26 19:24 Home Meds: Xarelto 20 mg Oral tab 1 tab once daily; kb3 kb3 19:26 19:24 Home Meds: lisinopril 10 mg Oral tab 1 tab; bid; kb3 kb3 19:26 19:24 Home Meds: metoprolol tartrate 25 mg Oral tab; kb3 kb3 19:50 19:35 administrative approval given by Cary Hopson/ patient has been accepted to [address]/ Dr. Cabrales accepted the patient in transfer/ report to be called to [phone] [facility]
--- NOTE | 2022-09-01 19:50 | EDPHYS ---
Physician Documentation [facility] Name: Simba Olson Age: 72 yrs Sex: Male : 1950 Arrival Date: 09/01/2022 Time: 19:06 Bed 7 Private MD: Marylin Carranza C ED Physician Felix Vu HPI: 09/01 19:38 This 72 yrs old Male presents to ER via Wheelchair with complaints of mandeep Difficulty Swallowing, Neck Swelling, Post Surgical Pain. 19:38 The patient presents with sore throat, swelling anterior neck, cant swallow. The mandeep patient describes throat pain as constant. Onset: The symptoms/episode began/occurred last night. Severity of symptoms: At their worst the symptoms were moderate, in the emergency department the symptoms are unchanged. Modifying factors: The symptoms are alleviated by nothing, the symptoms are aggravated by swallowing. Associated signs and symptoms: The patient has no apparent associated signs or symptoms. The patient has not experienced similar symptoms in the past. Historical: - Allergies: 19:24 pseudoephedrine HCl; kb3 - Home Meds: 19:24 levothyroxine 50 mcg tab [Active]; sotalol 80 mg Oral tab 1 tab 2 times per day kb3 [Active]; aspirin 81 mg Oral cap 1 cap once daily [Active]; - PMHx: 19:24 Atrial Fib; colon cancer; Hyperlipidemia; Hypertension; Hypothyroidism; LYMPHOMA; kb3 - PSHx: 19:24 ACDF; kb3 - Immunization history:: Adult Immunizations up to date, Client reports receiving the 2nd dose of the Covid vaccine, Last tetanus immunization: up to date. - Social history:: Smoking status: Patient denies any tobacco usage or history of. ROS: 19:40 Constitutional: Negative for fever, chills, and weight loss, Eyes: Negative for injury, mandeep pain, redness, and discharge, Neck: Negative for injury, pain, and swelling, Cardiovascular: Negative for chest pain, palpitations, and edema, Respiratory: Negative for shortness of breath, cough, wheezing, and pleuritic chest pain, Abdomen/GI: Negative for abdominal pain, nausea, vomiting, diarrhea, and constipation, Back: Negative for injury and pain, : Negative for injury, bleeding, discharge, and swelling, MS/Extremity: Negative for injury and deformity, Skin: Negative for injury, rash, and discoloration, Neuro: Negative for headache, weakness, numbness, tingling, and seizure, Psych: Negative for depression, anxiety, suicide ideation, homicidal ideation, and hallucinations, Allergy/Immunology: Negative for hives, rash, and allergies, Endocrine: Negative for neck swelling, polydipsia, polyuria, polyphagia, and marked weight changes, Hematologic/Lymphatic: Negative for swollen nodes, abnormal bleeding, and unusual bruising. 19:40 ENT: Positive for difficulty swallowing, hoarseness, of the right jaw. Exam: 19:40 Constitutional: This is a well developed, well nourished patient who is awake, alert, mandeep and in no acute distress. Head/Face: Normocephalic, atraumatic. Eyes: Pupils equal round and reactive to light, extra-ocular motions intact. Lids and lashes normal. Conjunctiva and sclera are non-icteric and not injected. Cornea within normal limits. Periorbital areas with no swelling, redness, or edema. ENT: Nares patent. No nasal discharge, no septal abnormalities noted. Tympanic membranes are normal and external auditory canals are clear. Oropharynx with no redness, swelling, or masses, exudates, or evidence of obstruction, uvula midline. Mucous membranes moist. Chest/axilla: Normal chest wall appearance and motion. Nontender with no deformity. No lesions are appreciated. Cardiovascular: Regular rate and rhythm with a normal S1 and S2. No gallops, murmurs, or rubs. Normal PMI, no JVD. No pulse deficits. Respiratory: Lungs have equal breath sounds bilaterally, clear to auscultation and percussion. No rales, rhonchi or wheezes noted. No increased work of breathing, no retractions or nasal flaring. Abdomen/GI: Soft, non-tender, with normal bowel sounds. No distension or tympany. No guarding or rebound. No evidence of tenderness throughout. Back: No spinal tenderness. No costovertebral tenderness. Full range of motion. Male : Normal genitalia with no discharge or lesions. Skin: Warm, dry with normal turgor. Normal color with no rashes, no lesions, and no evidence of cellulitis. Neuro: Awake and alert, GCS 15, oriented to person, place, time, and situation. Cranial nerves II-XII grossly intact. Motor strength 5/5 in all extremities. Sensory grossly intact. Cerebellar exam normal. Normal gait. Psych: Awake, alert, with orientation to person, place and time. Behavior, mood, and affect are within normal limits. 19:40 Neck: External neck: mass, that is moderate-sized, of the right submandibular area and right sternocleidomastoid, ROM/movement: pain, Lymph nodes: no appreciated lymphadenopathy. Vital Signs: 19:23 BP 118 / 69; Pulse 73; Resp 20; Temp 98; Pulse Ox 98% ; Weight 89.36 kg; Height 6 ft. 1 kb3 in. (185.42 cm); Pain 8/10; 20:19 BP 111 / 76; Pulse 81; Resp 17; Pulse Ox 97% ; jj7 19:23 Body Mass Index 25.99 (89.36 kg, 185.42 cm) kb3 MDM: 19:[address] [facility] 19:51 Differential diagnosis: POST SURGICAL HEMATOMA. Data reviewed: vital signs, nurses [facility] notes, lab test result(s), EKG. 19:52 Data interpreted: compliance monitor: rate is 73 beats/min, rhythm is regular, Pulse [facility] oximetry: on room air is 98 %. Counseling: I had a detailed discussion with the patient and/or guardian regarding: the historical points, exam findings, and any diagnostic results supporting the discharge/admit diagnosis, lab results, the need to transfer to another facility, for higher level of care, [facility] does not immediately have the required specialist. 09/01 19:26 Order name: CBC with Diff; Complete Time: 20:10 [facility] 09/01 19:26 Order name: Comprehensive Metabolic Panel [facility] 09/01 19:26 Order name: PT-INR; Complete Time: 20:10 [facility] 09/01 19:26 Order name: Ice pack; Complete Time: 20:08 [facility] Administered Medications: 19:52 Drug: NS 0.9% 1000 ml Route: IV; Rate: 125 ml/hr; Site: right antecubital; jb4 19:52 Drug: Decadron - Dexamethasone 10 mg Route: IVP; Site: right antecubital; jb4 20:01 Drug: Ancef (cefazolin) 1 grams Route: IVPB; Site: right antecubital; jj7 20:01 Drug: fentaNYL (PF) 25 mcg Route: IVP; Site: right forearm; jj7 20:07 Drug: Zofran (Ondansetron) 4 mg Route: IVP; Site: right forearm; jj7 Disposition Summary: 09/01/22 19:50 Transfer Ordered Transfer Location: [facility] mandeep Reason: Higher level of care mandeep Condition: Fair mandeep Problem: new mandeep Symptoms: are unchanged mandeep Accepting Physician: to [facility](09/01/22 20:34) jj7 Diagnosis - Postprocedural hematoma of skin and subcutaneous tissue following other procedure - mandeep 4 level ACDF Forms: - Medication Reconciliation Form mandeep - SBAR form mandeep Signatures: Dispatcher [employer] EDMS Felix Vu MD MD cha Bryson, James RN RN jb4 Annette Stern RN RN kb3 Ilda Dennis RN RN jj7 Corrections: (The following items were deleted from the chart) 19:26 19:24 Home Meds: amiodarone 100 mg Oral tab 1 tab 2 times per day; kb3 kb3 19:26 19:24 Home Meds: Xarelto 20 mg Oral tab 1 tab once daily; kb3 kb3 19:26 19:24 Home Meds: lisinopril 10 mg Oral tab 1 tab; bid; kb3 kb3 19:26 19:24 Home Meds: metoprolol tartrate 25 mg Oral tab; kb3 kb3 19:49 19:31 Soft Tissue Neck W/Contr+CT.RAD.BRZ ordered. EDMS EDMS 20:34 19:50 to [facility] mandeep jj7
[2022-09-01] MEDS ORDERED: FENTANYL CITR 100 MCG/2 ML ONE (19:55)
[2022-09-01] MEDS ORDERED: NA CHLORIDE 0.9% 0 ML IV ONE (19:59)
[2022-09-01] MEDS ORDERED: CEFAZOLIN SODIUM 1 GM/VIAL ONE (19:59)
[2022-09-01 20:02] LABS: Absolute Lymphocytes (CBC) 0.4 K/uL (0.7-4.9); Hematocrit 40.1 % (39.6-49.0); MPV 7.4 fL (7.6-11.3); RBC Red Blood Cell Count 4.36 M/uL (4.33-5.43)
[2022-09-01] MEDS ORDERED: NA CHLORIDE 0.9% 50 ML IV ONE (20:02)
[2022-09-01] MEDS ORDERED: ONDANSETRON 4 MG/2 ML VIAL ONE (20:04)
[2022-09-01 20:07] LABS: Protime INR 1.1
[2022-09-01 20:23] LABS: Albumin 3.6 g/dL (3.4-5.0); Bilirubin Total 1.1 mg/dL (0.2-1.0); Potassium 3.9 mmol/L (3.5-5.1); Protein, Total 7.6 g/dL (6.4-8.2)
[2022-09-01 21:05] VITALS: TEMP 98
[2022-09-01 21:06] VITALS: BP 111/76; O2SAT 97
--- OUTSIDE RECORDS SUMMARY | 2022-09-01 22:19 | XMS REPORT | Clinical Summary ---
:1950 Author Organization [facility] MD [facility] Center Address [address] [place] [address] Care Team Providers Name Role Phone David Malone MD Unavailable David Malone MD Unavailable London Fitzgerald MD Unavailable Donnell Norwood MD Primary Care Provider Nabil Carranza MD Unavailable Júnior Voss MD Unavailable Unavailable Nasir Amador MD Unavailable Jacob LR MD, William J Unavailable Allergies Active Allergy Reactions Severity Noted Date Comments Decongest-Aid Other (See Comments) High 02/22/2016 Afib Apixaban Rash Low 03/05/2016 Dabigatran Etexilate Rash Low 03/05/2016 Spironolactone Other (See Comments) 07/08/2018 Impac t on hormones Medications Medication Sig Dispensed Refills Start Date End Date Status TURMERIC ORAL Take by mouth 0 Ac tive daily. Pt takes 1 tablespoon daily Lactobac Take 1 capsule by 0 Ac tive no.41/Bifidobact no.7 mouth daily as (PROBIOTIC-10 ORAL) needed. lisinopril TAKE 1 TABLET BY 90 tablet 1 11/18/2019 A ctive (PRINIVIL,ZESTRIL) 10 MOUTH EVERY mg tabletIndications: MORNING Essential (primary) hypertension, Dilated cardiomyopathy Additional Information Patient not taking. Reason: No longer taking, Reported on 04/14/2022 docusate sodium Take 200 mg by 0 Active (COLACE) 100 mg mouth daily. capsule melatonin 3 mg tablet Take 1.5 mg by 0 Active mouth at bedtime. aspirin 81 mg EC Take 81 mg by 0 Active tablet mouth daily. cyanocobalamin 2000 Take 2,000 mcg by 0 Active MCG tablet mouth daily. cholecalciferol, Take 400 Units by 0 Active vitamin D3, (VITAMIN mouth. pt not D3) 5,000 units tab sure of dose tablet Venclexta 100 mg 400 mg daily. 0 Active tablet 021 acalabrutinib Take 100 mg by 0 A ctive (Calquence) 100 mg mouth twice daily. capsule artificial tears, Administer 1 drop 70 each 5 Active carboxymethylcellulose to both eyes 4 021 , (Refresh Plus) 0.5% (four) times a ophthalmic day. 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 Use nebulizer dysfunction solution as eyewash. Rinse both eyes 3x/day after blinking exercise. sotalol (sotalol AF) 80 mg daily. 0 Active 80 mg tablet 021 levothyroxine TAKE 1 TABLET BY 90 tablet 3 Active (SYNTHROID, MOUTH EVERY DAY 022 LEVOTHROID) 50 mcg tabletIndications: Dank's thyroiditis, Other specified hypothyroidism, Paroxysmal atrial fibrillation levothyroxine TAKE 1 TABLET BY 90 tablet 3 2 Discontinued (SYNTHROID, MOUTH EVERY DAY 021 022 LEVOTHROID) 50 mcg tabletIndications: Dank's thyroiditis, Other specified hypothyroidism, Paroxysmal atrial fibrillation clopidogrel (PLAVIX) daily. 0 2 Discontinued 75 mg tablet 021 (Therap y completed) ketoconazole (NIZORAL) as needed. 0 Discontinued 2% cream 021 021 (Therapy c ompleted) butalbital-acetaminoph Take 1 tablet by 45 tablet 0 2 Discontinued en-caffeine (Esgic) 50 mouth every 6 021 022 mg-325 mg-40 mg (six) hours as tabletIndications: needed for Mantle cell lymphoma headaches for up of lymph nodes of to 45 doses. multiple sites, Headache, unspecified, not otherwise specified sodium chloride 1 g Take 1 tablet (1 10 tablet 0 2 04/03 Discontinued tabletIndications: g) by mouth twice 021 022 Mantle cell lymphoma daily. of lymph nodes of multiple sites, Headache, unspecified, not otherwise specified, Hyposmolality and/or hyponatremia amoxicillin-clavulanat Take 875 mg by 0 Discontinued e (AUGMENTIN) 875 mouth daily. 021 022 (Therapy completed) mg-125 mg per tablet levothyroxine TAKE 1 TABLET BY 90 tablet 0 Discontinued (SYNTHROID, MOUTH EVERY DAY 022 022 (R eorder) LEVOTHROID) 50 mcg tabletIndications: Dank's thyroiditis, Other specified hypothyroidism, Paroxysmal atrial fibrillation Active Problems Problem Noted Date Hematochezia 05/29/2021 Serum creatinine raised 05/29/2021 Mass of colon 05/15/2021 Last Assessment & Plan: Formatting of th is note might be different from the original. Colonoscopy planned for May 27 Briana called to 2nd floor pharmacy Written and Verbal instructions provided Pt understands he will need to communica te with MD managing Plavix therapy for clearance to hold 5 days prior to procedure. Obstructive sleep apnea 07/26/2019 Last Assessment & Plan: Formatting of th is note might be different from the original. Prescription for new CPAP machine provid ed along with supplies. Continue to use CPAP more than 70% of th e time, more than 4 hours at a time, for cardiovascular and neurocognitive protection. The patient was educated to obtain a new mask and tubing every 3 months. Return to clinic in 1 year or sooner if needed. Non-diabetic hyperglycemia 05/17/2019 Coronary arteriosclerosis 10/23/2017 Last Assessment & Plan: Formatting of th is note might be different from the original. Coronary calcifications seen on CT of est February 20, 2017. Left heart catheterization 05/08/2017 shows no significant coronary obstructions. Recommend continue medical management on rosuvastatin 5 milligrams by mouth daily Other cardiomyopathy 10/23/2017 Ileostomy malfunction 07/21/2017 Preoperative cardiovascular examination 07/21/2017 Last Assessment & Plan: Formatting of th is note might be different from the original. Patient is planned to undergo cataract s urgery 06/07/[address] Heriberto Beckham [facility]. On exam patient does not demonstrate any signs of decompressive heart failure. Denies chest pain and has no angiographic evidence of cor onary disease on left heart catheterization 05/08/2017. Patient is undergoing a low risk procedure. Cardiovascular risk is 1 for dilated cardiomyopathy with ejectio n fraction of 47%. According to the RCRI risk score patient has a 0.9% or low risk for any major cardiac event during this procedure. There should be no reason patient cannot go forward with his planned procedure. Nonischemic congestive cardiomyopathy 05/22/2017 Last Assessment & Plan: Formatting of th is note might be different from the original. Echo today shows no change from previous echo done 1 year ago. Will continue with same medications and doses. Continue with lisinopril 10 mg daily. As patient asymptomatic, will not change medications. Repeat echo in 1 year Anemia in neoplastic disease 05/11/2017 Decreased cardiac ejection fraction 05/08/2017 Last Assessment & Plan: Formatting of th is note might be different from the original. Last echocardiogram July 2017 shows an ejection fraction of 47%. On physical exam patient shows no evidence of decompensated heart failure. He states he's no longer taking any Lasix but continues t o be on the spironolactone 25 milligrams by mouth daily. continue current management Lightheadedness 05/08/2017 Essential (primary) hypertension 04/24/2017 Last Assessment & Plan: Formatting of th is note might be different from the original. BP stable on current medication with lis inopril 10 mg daily. Continue with same. 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 Patient has progression of disease and c urrently on treatment. All oncologic management and treatment t o be deferred to primary team. H/O: depression Pyloric stenosis Paroxysmal atrial fibrillation Last Assessment & Plan: Formatting of th is note might be different from the original. No evidence of further Afib noted since CV. Rhythm stable on amiodarone 100 mg BID. He says he feels better and tolerates the medication better by taking it 100 mg BID. Will continue with same dose for now. Continue with aspirin 81 mg daily f or anticoagulation as reaction with DOACs and rhythm stable. Encounters Date Type Specialty Care Team Description 07/10/2022 Office Visit Endocrinology Alessandro Granda Hashimoto'shahram th yroiditis (Primary Dx); Other specified hypothyroidism; Paroxysmal atri al fibrillation; Non-diabetic hy perglycemia 07/10/2022 Hospital Encounter Lab Alessandro Granda Hashimoto 's thyroiditis; Other specified hypothyroidism; Non-diabetic hy perglycemia 07/10/2022 Travel 05/15/2022 Orders Only Lymphoma and Myeloma Eshareturi, Mantle cell lymphoma Olena, of lymph nodes of OFFSET PRESS ASSISTANT multiple sites (Primary Dx) 04/26/2022 Refill Endocrinology Pola Chen, Dank's thyroiditis; Other specified hypothyroidism; Paroxysmal atri al fibrillation 04/15/2022 POEM Appointments Anesthesiology Donnell Norwood MD 04/14/2022 Anesthesia Event Anesthesiology Gladis Guadalupe, GRABIEL 03/07/2022 Office Visit Physical Medicine and Jeannie Woodward MD Neuralgia and neuritis, unspecified (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 03/07/2022 Prep for Surgery Endoscopy Susan Arias, Mantle ce ll lymphoma TYPEWRITER MECHANIC of lymph nodes of multiple sites (Primary Dx) 03/07/2022 Travel 03/06/2022 Ancillary Procedure Radiology Sabine Stark c ell lymphoma Tobi Dodge, of lymph node s of OFFSET PRESS ASSISTANT multiple sites 03/06/2022 Hospital Encounter Lab Sabine Stark ce ll lymphoma Tobi Dodge, of lymph node s of OFFSET PRESS ASSISTANT multiple sites 03/06/2022 Travel 03/05/2022 Telephone Radiology Roberta Christinasen, RN 10/22/2021 Office Visit Lymphoma and Myeloma Donnell Norwood, 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 10/22/2021 Travel 10/21/2021 Ancillary Procedure Radiology Mantle c ell lymphoma of lymph nodes of multiple sites 10/21/2021 Hospital Encounter Lab Mantle ce ll lymphoma of lymph nodes of multiple sites 10/21/2021 Travel 10/18/2021 Ancillary Procedure Radiology Stark, Mantle c ell lymphoma Armandomila aDr, of lymph node s of OFFSET PRESS ASSISTANT multiple sites 10/18/2021 Travel 10/17/2021 Orders Only Lymphoma and Myeloma Lincoln, Mantle cell lymphoma Tobi Dodge, of lymph node s of OFFSET PRESS ASSISTANT multiple sites (Primary Dx) 10/11/2021 Telemedicine Physical Medicine and William, Malign ant neoplasm related fatigue (Primary Dx); Rehabilitation MD Hernando Physical deco nditioning; Cancer-related fatigue 10/07/2021 Hospital Encounter Ophthalmology Shivam Valentino, Dry eye syndrome of bilateral lacrimal glands (Primary Dx); Mantle cell lym phoma of lymph nodes of multiple sites 10/07/2021 Travel 10/04/2021 Travel 09/29/2021 Hospital Encounter Infusion Services Jeff Cosme le cell lymphoma Reinaldo of lymph nodes of [place], [place] multiple sites Mar, Madiha (Primary Dx) 09/29/2021 Hospital Encounter Lab Mantle ce ll lymphoma of lymph nodes of multiple sites 09/29/2021 Travel 09/14/2021 Orders Only Lymphoma and Myeloma Lincoln Mantle cell lymphoma Tobi Dodge, of lymph node s of OFFSET PRESS ASSISTANT multiple sites (Primary Dx) after 09/01/2021 Immunizations Name Administration Dates Next Due Pfizer SARS-CoV-2 Vaccination (Purple Cap) 01/30/2022 Surgical History Surgery Date Site/Laterality Comments CHOLECYSTECTOMY 2013 APPENDECTOMY 1950 COLON SURGERY 02/05/2016 colostomy RADIAL KERATOTOMY MD BRNCHSC W/BRNCL ALVEOLAR 10/16/2016 Left Proc edure: FLEXIBLE LAVAGE BRONCHOSCOPY WIT H BRONCHIAL ALVEOLAR LAVAGE; Surgeon: Camille garcia MD; Location: MAIN P CHAPTICO PROC; Service: PULMONA RY PYLOROMYOTOMY as a child OTHER SURGICAL HISTORY 10/02/2017 - Colostomy reversal 11/01/2017 MD COLONOSCOPY FLX DX 05/27/2021 N/A Procedure: DIAGNOSTIC W/COLLJ SPEC WHEN PFRMD FLEXIBLE COLONOSCOPY PROXIMAL TO SPLE ROBIN FLEXURE; Surgeon : Tyron Rowe MD; Locati on: MAIN ENDOSCOPY; Servi ce: GASTROENTEROLOGY Medical History Medical History Date Comments Atrial fibrillation Pyloric stenosis Arrhythmia Hypertension Hypothyroidism 09/10/2016 H/O: depression Lymphoma of intestine Degenerative cervical spinal stenosis Preoperative cardiovascular examination 07/21/2017 Family History Medical History Relation Name Comments Other Paternal Grandfather brain tumor Relation Name Status Comments Paternal Grandfather Social History Tobacco Use Types Packs/Day Years Used Date Smoking Tobacco: Never Smokeless Tobacco: Never Alcohol Use Standard Drinks/Week Comments Yes 0 (1 standard drink = 0.6 oz pure alcoho l) 1 glass wine/ month Sex Assigned at Date Recorded Not on file Job Start Date Occupation Industry Not on file Not on file Not on file Obstetrics History Last Filed Vital Signs Vital Sign Reading Time Taken Comments Blood Pressure 126/73 07/10/2022 11:25 AM CDT Pulse 60 07/10/2022 11:25 AM CDT Temperature 36.5 C (97.7 F) 07/10/2022 11:25 AM CDT Respiratory Rate 18 07/10/2022 11:25 AM CDT Oxygen Saturation 98% 07/10/2022 11:25 AM CDT Inhaled Oxygen Concentration - - Weight 95.4 kg (210 lb 5.1 oz) 07/10/2022 11:25 AM CDT Height 186 cm (6' 1.23") 03/06/2022 10:30 AM CDT Body Mass Index 27.58 03/06/2022 10:30 AM CDT Plan of Treatment Date Type Specialty Care Team Description 09/05/2022 Telemedicine Pulmonology Donnell Norwood MD [address] [place] [id number] Yuli Teague NP [address] [place] [address] 10/17/2022 Office Visit Urology Shreyas Lagunas MD [facility] [place] [address] Cesar Kearney MD [address] [place] [address] Health Maintenance Due Date Last Done Comments COVID-19 Vaccination (4 - Booster 03/27/2022 01/30/2022, , for Pfizer series) 11/28/2020 Medical Devices Implanted Type Area Parimutuel Ticket Checker Device Shelf Model / Identifier Expiration Date Ser ial / Lot Clip-05/27/2015 Clip Right: Implanted: 05/27/2015 (Quantity not on file) Abdomen Procedures Procedure Name Priority Date/Time Associated Diagnosis Comme nts HEMOGLOBIN A1C Routine 07/10/2022 10:13 Non-diabetic Results f or this AM CDT hyperglycemia procedure are in the results section. THYROID STIMULATING Routine 07/10/2022 10:13 Dank's Resu lts for this HORMONE AM CDT thyroiditis procedure are in Other specified the results hypothyroidism section. FREE THYROXINE Routine 07/10/2022 10:13 Dank's Results f or this AM CDT thyroiditis procedure are in Other specified the results hypothyroidism section. PETCT CONTRAST ENHANCED Routine 03/06/2022 12:15 Mantle cell l ymphoma Results for this SUBSEQUENT TREATMENT PM CDT of lymph nodes of pr ocedure are in STRATEGY multiple sites the results section. POC CREATININE Routine 03/06/2022 10:52 Results f or this AM CDT procedure are i n the results section. FRACTIONATED BILIRUBIN Routine 03/06/2022 10:15 Mantle cell ly mphoma Results for this AM CDT of lymph nodes of procedure are in multiple sites the results section. TOTAL PROTEIN Routine 03/06/2022 10:15 Mantle cell lymphoma Re sults for this AM CDT of lymph nodes of procedure are in multiple sites the results section. ASPARTATE Routine 03/06/2022 10:15 Mantle cell lymphoma Res ults for this AMINOTRANSFERASE AM CDT of lymph nodes of proced ure are in multiple sites the results section. ALANINE Routine 03/06/2022 10:15 Mantle cell lymphoma Res ults for this AMINOTRANSFERASE AM CDT of lymph nodes of proced ure are in multiple sites the results section. ALKALINE PHOSPHATASE Routine 03/06/2022 10:15 Mantle cell lymp [place] Results for this AM CDT of lymph nodes of procedure are in multiple sites the results section. ALBUMIN LEVEL Routine 03/06/2022 10:15 Mantle cell lymphoma Re sults for this AM CDT of lymph nodes of procedure are in multiple sites the results section. CALCIUM LEVEL TOTAL Routine 03/06/2022 10:15 Mantle cell lymph bebeto Results for this AM CDT of lymph nodes of procedure are in multiple sites the results section. .GLOMERULAR FILTRATION Routine 03/06/2022 10:15 Mantle cell ly mphoma Results for this RATE AM CDT of lymph nodes of procedure are in multiple sites the results section. SERUM CREATININE Routine 03/06/2022 10:15 Mantle cell lymphoma Results for this AM CDT of lymph nodes of procedure are in multiple sites the results section. ELECTROLYTE PANEL Routine 03/06/2022 10:15 Mantle cell lymphom a Results for this AM CDT of lymph nodes of procedure are in multiple sites the results section. BLOOD UREA NITROGEN Routine 03/06/2022 10:15 Mantle cell lymph bebeto Results for this AM CDT of lymph nodes of procedure are in multiple sites the results section. GLUCOSE LEVEL Routine 03/06/2022 10:15 Mantle cell lymphoma Re sults for this AM CDT of lymph nodes of procedure are in multiple sites the results section. MANUAL DIFFERENTIAL Routine 03/06/2022 10:15 Mantle cell lymph bebeto Results for this AM CDT of lymph nodes of procedure are in multiple sites the results section. Results CBC Routine 03/06/2022 10:15 Mantle cell lymphoma Res ults for this AM CDT of lymph nodes of procedure are in multiple sites the results section. LACTATE DEHYDROGENASE Routine 03/06/2022 10:15 Mantle cell lym phoma Results for this AM CDT of lymph nodes of procedure are in multiple sites the results section. PHOSPHORUS LEVEL Routine 03/06/2022 10:15 Mantle cell lymphoma Results for this AM CDT of lymph nodes of procedure are in multiple sites the results section. MAGNESIUM LEVEL Routine 03/06/2022 10:15 Mantle cell lymphoma Results for this AM CDT of lymph nodes of procedure are in multiple sites the results section. URIC ACID Routine 03/06/2022 10:15 Mantle cell lymphoma Res ults for this AM CDT of lymph nodes of procedure are in multiple sites the results section. COMPREHENSIVE METABOLIC Routine 03/06/2022 10:15 Mantle cell l ymphoma PANEL AM CDT of lymph nodes of multiple sites COMPLETE BLOOD COUNT W/ Routine 03/06/2022 10:15 Mantle cell l ymphoma DIFFERENTIAL AM CDT of lymph nodes of multiple sites PETCT CONTRAST ENHANCED Routine 10/21/2021 5:26 Mantle cell ly mphoma Results for this SUBSEQUENT TREATMENT PM ACTING TEACHER of lymph nodes of pr ocedure are in STRATEGY multiple sites the results section. FRACTIONATED BILIRUBIN Routine 10/21/2021 2:53 Mantle cell lym phoma Results for this PM ACTING TEACHER of lymph nodes of procedure are in multiple sites the results section. TOTAL PROTEIN Routine 10/21/2021 2:53 Mantle cell lymphoma Res ults for this PM ACTING TEACHER of lymph nodes of procedure are in multiple sites the results section. ASPARTATE Routine 10/21/2021 2:53 Mantle cell lymphoma Resu lts for this AMINOTRANSFERASE PM ACTING TEACHER of lymph nodes of proced ure are in multiple sites the results section. ALANINE Routine 10/21/2021 2:53 Mantle cell lymphoma Resu lts for this AMINOTRANSFERASE PM ACTING TEACHER of lymph nodes of proced ure are in multiple sites the results section. ALKALINE PHOSPHATASE Routine 10/21/2021 2:53 Mantle cell lymph bebeto Results for this PM ACTING TEACHER of lymph nodes of procedure are in multiple sites the results section. ALBUMIN LEVEL Routine 10/21/2021 2:53 Mantle cell lymphoma Res ults for this PM ACTING TEACHER of lymph nodes of procedure are in multiple sites the results section. CALCIUM LEVEL TOTAL Routine 10/21/2021 2:53 Mantle cell lympho ma Results for this PM ACTING TEACHER of lymph nodes of procedure are in multiple sites the results section. .GLOMERULAR FILTRATION Routine 10/21/2021 2:53 Mantle cell lym phoma Results for this RATE PM ACTING TEACHER of lymph nodes of procedure are in multiple sites the results section. SERUM CREATININE Routine 10/21/2021 2:53 Mantle cell lymphoma Results for this PM ACTING TEACHER of lymph nodes of procedure are in multiple sites the results section. ELECTROLYTE PANEL Routine 10/21/2021 2:53 Mantle cell lymphoma Results for this PM ACTING TEACHER of lymph nodes of procedure are in multiple sites the results section. BLOOD UREA NITROGEN Routine 10/21/2021 2:53 Mantle cell lympho ma Results for this PM ACTING TEACHER of lymph nodes of procedure are in multiple sites the results section. GLUCOSE LEVEL Routine 10/21/2021 2:53 Mantle cell lymphoma Res ults for this PM ACTING TEACHER of lymph nodes of procedure are in multiple sites the results section. MANUAL DIFFERENTIAL Routine 10/21/2021 2:53 Mantle cell lympho ma Results for this PM ACTING TEACHER of lymph nodes of procedure are in multiple sites the results section. Results CBC Routine 10/21/2021 2:53 Mantle cell lymphoma Resu lts for this PM ACTING TEACHER of lymph nodes of procedure are in multiple sites the results section. LACTATE DEHYDROGENASE Routine 10/21/2021 2:53 Mantle cell lymp [place] Results for this PM ACTING TEACHER of lymph nodes of procedure are in multiple sites the results section. PHOSPHORUS LEVEL Routine 10/21/2021 2:53 Mantle cell lymphoma Results for this PM ACTING TEACHER of lymph nodes of procedure are in multiple sites the results section. MAGNESIUM LEVEL Routine 10/21/2021 2:53 Mantle cell lymphoma R esults for this PM ACTING TEACHER of lymph nodes of procedure are in multiple sites the results section. URIC ACID Routine 10/21/2021 2:53 Mantle cell lymphoma Resu lts for this PM ACTING TEACHER of lymph nodes of procedure are in multiple sites the results section. COMPREHENSIVE METABOLIC Routine 10/21/2021 2:53 Mantle cell ly mphoma PANEL PM ACTING TEACHER of lymph nodes of multiple sites COMPLETE BLOOD COUNT W/ Routine 10/21/2021 2:53 Mantle cell ly mphoma DIFFERENTIAL PM ACTING TEACHER of lymph nodes of multiple sites XR CHEST 2 VW Routine 10/18/2021 9:45 Mantle cell lymphoma Res ults for this AM ACTING TEACHER of lymph nodes of procedure are in multiple sites the results section. FRACTIONATED BILIRUBIN Routine 10/18/2021 8:25 Mantle cell lym phoma Results for this AM ACTING TEACHER of lymph nodes of procedure are in multiple sites the results section. TOTAL PROTEIN Routine 10/18/2021 8:25 Mantle cell lymphoma Res ults for this AM ACTING TEACHER of lymph nodes of procedure are in multiple sites the results section. ASPARTATE Routine 10/18/2021 8:25 Mantle cell lymphoma Resu lts for this AMINOTRANSFERASE AM ACTING TEACHER of lymph nodes of proced ure are in multiple sites the results section. ALANINE Routine 10/18/2021 8:25 Mantle cell lymphoma Resu lts for this AMINOTRANSFERASE AM ACTING TEACHER of lymph nodes of proced ure are in multiple sites the results section. ALKALINE PHOSPHATASE Routine 10/18/2021 8:25 Mantle cell lymph bebeto Results for this AM ACTING TEACHER of lymph nodes of procedure are in multiple sites the results section. ALBUMIN LEVEL Routine 10/18/2021 8:25 Mantle cell lymphoma Res ults for this AM ACTING TEACHER of lymph nodes of procedure are in multiple sites the results section. CALCIUM LEVEL TOTAL Routine 10/18/2021 8:25 Mantle cell lympho ma Results for this AM ACTING TEACHER of lymph nodes of procedure are in multiple sites the results section. .GLOMERULAR FILTRATION Routine 10/18/2021 8:25 Mantle cell lym phoma Results for this RATE AM ACTING TEACHER of lymph nodes of procedure are in multiple sites the results section. SERUM CREATININE Routine 10/18/2021 8:25 Mantle cell lymphoma Results for this AM ACTING TEACHER of lymph nodes of procedure are in multiple sites the results section. ELECTROLYTE PANEL Routine 10/18/2021 8:25 Mantle cell lymphoma Results for this AM ACTING TEACHER of lymph nodes of procedure are in multiple sites the results section. BLOOD UREA NITROGEN Routine 10/18/2021 8:25 Mantle cell lympho ma Results for this AM ACTING TEACHER of lymph nodes of procedure are in multiple sites the results section. GLUCOSE LEVEL Routine 10/18/2021 8:25 Mantle cell lymphoma Res ults for this AM ACTING TEACHER of lymph nodes of procedure are in multiple sites the results section. MANUAL DIFFERENTIAL Routine 10/18/2021 8:25 Mantle cell lympho ma Results for this AM ACTING TEACHER of lymph nodes of procedure are in multiple sites the results section. Results CBC Routine 10/18/2021 8:25 Mantle cell lymphoma Resu lts for this AM ACTING TEACHER of lymph nodes of procedure are in multiple sites the results section. LACTATE DEHYDROGENASE Routine 10/18/2021 8:25 Mantle cell lymp [place] Results for this AM ACTING TEACHER of lymph nodes of procedure are in multiple sites the results section. PHOSPHORUS LEVEL Routine 10/18/2021 8:25 Mantle cell lymphoma Results for this AM ACTING TEACHER of lymph nodes of procedure are in multiple sites the results section. MAGNESIUM LEVEL Routine 10/18/2021 8:25 Mantle cell lymphoma R esults for this AM ACTING TEACHER of lymph nodes of procedure are in multiple sites the results section. URIC ACID Routine 10/18/2021 8:25 Mantle cell lymphoma Resu lts for this AM ACTING TEACHER of lymph nodes of procedure are in multiple sites the results section. COMPREHENSIVE METABOLIC Routine 10/18/2021 8:25 Mantle cell ly mphoma PANEL AM ACTING TEACHER of lymph nodes of multiple sites COMPLETE BLOOD COUNT W/ Routine 10/18/2021 8:25 Mantle cell ly mphoma DIFFERENTIAL AM ACTING TEACHER of lymph nodes of multiple sites FRACTIONATED BILIRUBIN Routine 09/29/2021 9:50 Mantle cell lym phoma Results for this AM ACTING TEACHER of lymph nodes of procedure are in multiple sites the results section. TOTAL PROTEIN Routine 09/29/2021 9:50 Mantle cell lymphoma Res ults for this AM ACTING TEACHER of lymph nodes of procedure are in multiple sites the results section. ASPARTATE Routine 09/29/2021 9:50 Mantle cell lymphoma Resu lts for this AMINOTRANSFERASE AM ACTING TEACHER of lymph nodes of proced ure are in multiple sites the results section. ALANINE Routine 09/29/2021 9:50 Mantle cell lymphoma Resu lts for this AMINOTRANSFERASE AM ACTING TEACHER of lymph nodes of proced ure are in multiple sites the results section. ALKALINE PHOSPHATASE Routine 09/29/2021 9:50 Mantle cell lymph bebeto Results for this AM ACTING TEACHER of lymph nodes of procedure are in multiple sites the results section. ALBUMIN LEVEL Routine 09/29/2021 9:50 Mantle cell lymphoma Res ults for this AM ACTING TEACHER of lymph nodes of procedure are in multiple sites the results section. CALCIUM LEVEL TOTAL Routine 09/29/2021 9:50 Mantle cell lympho ma Results for this AM ACTING TEACHER of lymph nodes of procedure are in multiple sites the results section. .GLOMERULAR FILTRATION Routine 09/29/2021 9:50 Mantle cell lym phoma Results for this RATE AM ACTING TEACHER of lymph nodes of procedure are in multiple sites the results section. SERUM CREATININE Routine 09/29/2021 9:50 Mantle cell lymphoma Results for this AM ACTING TEACHER of lymph nodes of procedure are in multiple sites the results section. ELECTROLYTE PANEL Routine 09/29/2021 9:50 Mantle cell lymphoma Results for this AM ACTING TEACHER of lymph nodes of procedure are in multiple sites the results section. BLOOD UREA NITROGEN Routine 09/29/2021 9:50 Mantle cell lympho ma Results for this AM ACTING TEACHER of lymph nodes of procedure are in multiple sites the results section. GLUCOSE LEVEL Routine 09/29/2021 9:50 Mantle cell lymphoma Res ults for this AM ACTING TEACHER of lymph nodes of procedure are in multiple sites the results section. MANUAL DIFFERENTIAL Routine 09/29/2021 9:50 Mantle cell lympho ma Results for this AM ACTING TEACHER of lymph nodes of procedure are in multiple sites the results section. Results CBC Routine 09/29/2021 9:50 Mantle cell lymphoma Resu lts for this AM ACTING TEACHER of lymph nodes of procedure are in multiple sites the results section. URIC ACID Routine 09/29/2021 9:50 Mantle cell lymphoma Resu lts for this AM ACTING TEACHER of lymph nodes of procedure are in multiple sites the results section. LACTATE DEHYDROGENASE Routine 09/29/2021 9:50 Mantle cell lymp [place] Results for this AM ACTING TEACHER of lymph nodes of procedure are in multiple sites the results section. PHOSPHORUS LEVEL Routine 09/29/2021 9:50 Mantle cell lymphoma Results for this AM ACTING TEACHER of lymph nodes of procedure are in multiple sites the results section. MAGNESIUM LEVEL Routine 09/29/2021 9:50 Mantle cell lymphoma R esults for this AM ACTING TEACHER of lymph nodes of procedure are in multiple sites the results section. COMPREHENSIVE METABOLIC Routine 09/29/2021 9:50 Mantle cell ly mphoma PANEL AM ACTING TEACHER of lymph nodes of multiple sites COMPLETE BLOOD COUNT W/ Routine 09/29/2021 9:50 Mantle cell ly mphoma DIFFERENTIAL AM ACTING TEACHER of lymph nodes of multiple sites after 09/01/2021 Results TSH (07/10/2022 10:13 AM CDT) athologist Signature TSH 3.29 0.27 - 4.20 [facility] mcunit/mL DIAGNOSTIC CENTER Specimen Anatomical Collection Method Collection Time Receive d Time (Source) Location / / Volume Laterality Blood 07/10/2022 10:13 07/10/2022 AM CDT 10:22 AM CDT Alessandro Granda MD LAB BLOOD ORDERABLES Performing Organization Address City/State/ZIP Code Phon e Number [facility] DIAGNOSTIC Unless otherwise noted, [place] [phone] [place] all lab tests performed by: Division of Pathology and Laboratory Medicine [address] [place], [place] [address]d Free T4 (07/10/2022 10:13 AM CDT) athologist Signature T4 Free 1.21 0.93 - 1.70 [facility] ng/dL DIAGNOSTIC CENTER Specimen Anatomical Collection Method Collection Time Receive d Time (Source) Location / / Volume Laterality Blood 07/10/2022 10:13 07/10/2022 AM CDT 10:22 AM CDT Alessandro Granda MD LAB BLOOD ORDERABLES Performing Organization Address City/[facility] Code Phon e Number [facility] DIAGNOSTIC Unless otherwise noted, [place] [phone] [place] all lab tests performed by: Division of Pathology and Laboratory Medicine [address] [place] [address] Hemoglobin A1c (07/10/2022 10:13 AM CDT) P athologist Signature A1C 5.0 4.3 - 5.6 % [facility] CANCER [place] Comment: HbA1c values >=6.5% are diagnostic of di abetes mellitus. Diagnosis should be confirmed by repeat testing. Therapeutic Action suggested: >8.0% HbA1 c; Goal of therapy: <7.0% HbA1c Specimen Anatomical Collection Method Collection Time Receive d Time (Source) Location / / Volume Laterality Blood 07/10/2022 10:13 07/10/2022 AM CDT 10:51 AM CDT Alessandro Granda MD LAB BLOOD ORDERABLES Performing Organization Address City/State/ZIP Code Phon e Number [facility] CANCER Unless otherwise noted, [place] [address] [place] all lab tests performed by: Division of Pathology and Laboratory Medicine [facility] PETCT Contrast Enhanced Subsequent Treatment Strategy (03/06/2022 12:15 PM CDT) Only the most recent of2 resultswithin the time period is included. Anatomical Region Laterality Modality Whole Body Positron Emission To mography (PET) Specimen (Source) Anatomical Collection Method Collection Time Re ceived Time Location / / Volume Laterality 03/06/2022 2:10 PM CDT Impressions 03/06/2022 4:04 PM CDT 1. An enlarging hypermetabolic right hilar lymph node is concerning for lymphoma. Bronchoscopic biopsy should be considered. 2. Diffuse, increasing circumferential sigmoid wall thickening with scattered hypermetabolic foci. This is located in the region of the mass seen on 05/24/[address] Metabolic activity is decre ased when compared to the prior PET/CT, however the circumferential wall thickening is concerning for malignancy. Consider colonoscopy as clinically indicated. 3. Nonspecific mildly increased tracer uptake in a left external iliac node. Attention on follow-up imaging. 4. Small bilateral pleural effusions w ith bibasilar groundglass and consolidative opacities, likely infectious or inflammatory. 5. Lymphoma treatment response scale: 5 (hypermetabolic right hilar node) I personally reviewed these image(s) margarito parra with the resident's/fellow's interpretations, certify that if a procedure was performed I was physically present, and agree with the final report. Narrative 03/06/2022 4:04 PM CDT FULL RESULT: Examination: Contrast-Enhanced FDG PET /CT, 03/06/2022 12:15 PM Clinical History: 71-year-old male with mantle cell lymphoma status post chemotherapy currently on acalabrutinib and venetoclax. 05/27/2021 colonoscopy demonstrated lymphoma throughout the colon, patient underwent colostomy for obstruction. Indication: Restaging to determine subse quent treatment strategy. Comparison: PET/CT 10/21/2021. Technique: F-18 fluorodeoxyglucose (FD G) 9.0 mCi was administered intravenously via left AC. To allow for distribution and uptake of radiotracer, the patient was asked to rest quietly for approximat shawn 60-90 minutes. PET/CT imaging was performed from the skull vertex through mid tibia. CT scanning was done for attenuation correction, image registration, and diagnosis with scan parameters optimiz ed to minimize radiation exposure to the patient. The CT portion of the examination was performed with intravenous and enteric contrast. SUV measurements are reported as maximum SUV based on body weight unless otherwise specified. Findings: SUV reference values: Mediastinal blood pool: 2.6 Liver parenchyma: 3.2 Head and Neck: No focal suspicious activity is seen wit hin the brain parenchyma. The paranasal sinuses are clear. No evidence of FDG avid or enlarged cervical nodes. Chest: There are small bilateral pleural effusi ons, with bibasilar groundglass and hypermetabolic consolidative opacities, which are similar when compared to 10/21/2021 exam and favor infectious/inflammatory p rocess as opposed to malignant. No suspi cious focal pulmonary mass. Cardiomegaly with left atrial appendage occlusion device. Few stable prominent mediastinal lymph n odes level metabolic activity, the largest a 2.0 x 1.4 cm right lower paratracheal node (axial 197) with SUV 2.6, previously 3.2. Enlarging hypermetabolic right hilar 2.3 x 1.9 cm node with SUV 4.9 (axial 212), previously 2.0 x 1.3 cm with SUV 3.7. No suspicious axillary lymph nodes. Abdomen and Pelvis: A few small scattered non-FDG avid hepat ic hypodensities, likely cysts. No focal FDG avid or suspicious hepatic lesion. Stable non-FDG avid 1.1 cm left adrenal nodule, likely adenoma. No right adrenal nodules. Status post cholecystectomy. The pancrea s and spleen are within normal limits. Left renal scarring with a 3 mm nonobstr uctive interpolar calculus. Stable hyperdense 1.5 cm proteinaceous, non-FDG avid renal cyst. There is diffuse sigmoid diverticulosis without findings of acute diverticulitis. There is concentric wall thickening of the sigmoid colon up to 1.1 cm (axial 420, with few scattered areas of increased metabolic activity with SUV max of 5.2 ( axial 408). On the 10/21/[address], this area was hypermetabolic with SUV 9.0, although the wall was not diffusely thickened. There are postsurgical changes of bowel anastomosis in the descending colo n with upstream dilation of the mid descending colon. The distal descending colon, sigmoid, and rectum are normal in caliber. Low suspicion for bowel obstruction. Bilateral fat-containing inguinal hernia s. Mildly increased tracer uptake in a 2.0 x 1.0 cm left external iliac node with SUV max 4.3, similar in size when compared to prior, previously SUV max 2.8. Otherwise, no FDG avid mesenteric, retroperitoneal or inguinal lymphadenopathy. Musculoskeletal: No evidence of FDG avid lytic or sclerotic osseous lesions. Procedure Note Jan Vega MD - 03/06/2022Formattin g of this note might be different from the original. FULL RESULT: Examination: Contrast-Enhanced FDG PET/C T, 03/06/2022 12:15 PM Clinical History: 71-year-old male with mantle cell lymphoma status post chemotherapy currently on acalabrutinib and venetoclax. 05/27/2021 colonoscopy demonstrated lymphoma throughout the colon, patient underwent colostomy for obstruction. Indication: Restaging to determine subse quent treatment strategy. Comparison: PET/CT 10/21/2021. Technique: F-18 fluorodeoxyglucose (FDG) 9.0 mCi was administered intravenously via left AC. To allow for distribution and uptake of radiotracer, the patient was asked to rest quietly for approximately 60-90 minutes. PET/CT imaging was performed fr om the skull vertex through mid tibia. CT scanning was done for attenuation correction, image registration, and diagnosis with scan parameters optimized to minimize radiation exposure to the patient. The C T portion of the examination was performed with intravenous and enteric contrast. SUV measurements are reported as maximum SUV based on body weight unless otherwise specified. Findings: SUV reference values: Mediastinal blood pool: 2.6 Liver parenchyma: 3.2 Head and Neck: No focal suspicious activity is seen wit hin the brain parenchyma. The paranasal sinuses are clear. No evidence of FDG avid or enlarged cervical nodes. Chest: There are small bilateral pleural effusi ons, with bibasilar groundglass and hypermetabolic consolidative opacities, which are similar when compared to 10/21/2021 exam and favor infectious/inflammatory process as opposed to malignant. No suspicious foca l pulmonary mass. Cardiomegaly with left atrial appendage occlusion device. Few stable prominent mediastinal lymph n odes level metabolic activity, the largest a 2.0 x 1.4 cm right lower paratracheal node (axial 197) with SUV 2.6, previously 3.2. Enlarging hypermetabolic right hilar 2.3 x 1.9 cm node with SUV 4.9 (axial 212), previously 2.0 x 1.3 cm with SUV 3.7. No suspicious axillary lymph nodes. Abdomen and Pelvis: A few small scattered non-FDG avid hepat ic hypodensities, likely cysts. No focal FDG avid or suspicious hepatic lesion. Stable non-FDG avid 1.1 cm left adrenal nodule, likely adenoma. No right adrenal nodules. Status post cholecystectomy. The pancrea s and spleen are within normal limits. Left renal scarring with a 3 mm nonobstr uctive interpolar calculus. Stable hyperdense 1.5 cm proteinaceous, non-FDG avid renal cyst. There is diffuse sigmoid diverticulosis without findings of acute diverticulitis. There is concentric wall thickening of the sigmoid colon up to 1.1 cm (axial 420, with few scattered areas of increased metabolic activity with SUV max of 5.2 (axial 408) . On the 10/21/[address], this area was hypermetabolic with SUV 9.0, although the wall was not diffusely thickened. There are postsurgical changes of bowel anastomosis in the descending colon with upstream dilation of the mid descending colon. The distal descending colon, sigmoid, and rectum are normal in caliber. Low suspicion for bowel obstruction. Bilateral fat-containing inguinal hernia s. Mildly increased tracer uptake in a 2.0 x 1.0 cm left external iliac node with SUV max 4.3, similar in size when compared to prior, previously SUV max 2.8. Otherwise, no FDG avid mesenteric, retroperitoneal or inguinal lymphadenopathy. Musculoskeletal: No evidence of FDG avid lytic or sclerotic osseous lesions. IMPRESSION: 1. An enlarging hypermetabolic right hil ar lymph node is concerning for lymphoma. Bronchoscopic biopsy should be considered. 2. Diffuse, increasing circumferential s igmoid wall thickening with scattered hypermetabolic foci. This is located in the region of the mass seen on 05/24/[address] Metabolic activity is decreased when compared to the prior PET/CT, however th e circumferential wall thickening is concerning for malignancy. Consider colonoscopy as clinically indicated. 3. Nonspecific mildly increased tracer u ptake in a left external iliac node. Attention on follow-up imaging. 4. Small bilateral pleural effusions wit h bibasilar groundglass and consolidative opacities, likely infectious or inflammatory. 5. Lymphoma treatment response scale: 5 (hypermetabolic right hilar node) I personally reviewed these image(s) margarito parra with the resident's/fellow's interpretations, certify that if a procedure was performed I was physically present, and agree with the final report. Tobi Stark APN IM PETCT ORDERABLES POC Creatinine (03/06/2022 10:52 AM CDT) P athologist Signature POC Crea 0.8 0.6 - 1.3 POC [facility] mg/dL Comment: Medications, especially hydroxyurea or s upplements, such as ascorbate, can interfere with test results causing a falsely and significantly higher result than expected. If a problem is suspected with a patient's result, a sample should be sent to the laboratory for confirmatory testing. Method description: The i-STAT is an agapito lyzer used for in vitro quantification of various analytes in whole blood. The device uses a single disposable cartridge which contains microfabricated sensors, a calibration solution, fluidics system, and a waste chamber. Each test cartridge contains ch emically sensitive biosensors on a silicon chip that are configured to perform specific tests. The microfabricated sensors measure analyte concentration by an electrochemical assay. POC eGFR-AA 103 >=60 mL/min/1.73 m2 POC [facility] OR Comment: Normal eGFR >= 60 mL/min/1.73 m2 The eGFR is calculated using the CKD-EPI equation. The eGFR declines with age. eGFR <60 mL/min/1.73 m2 is considered as "decreased" This equation should only be used for patients 18 and older. According to the National [employer] ion's Kidney Disease Outcome Quality Initiative (KDOQI) classification and 2012 Kidney Disease Improving Global Outcomes (KDIGO) Clinical Practice Guideline, the stage of CKD should be categorized based on estimated GFR. Stage Description GFR mL/min/1.73 m2 1 Kidney damage with normal or high GFR >=90 2 Kidney damage with mild decrease in GF R 60-89 3a Mild to moderate decrease in GFR 45-59 3b Moderate to severe decrease in GFR 30-44 4 Severe decrease in GFR 15-29 5 Kidney failure <15 (or dialysis) POC eGFR-ISRAEL 89 >=60 mL/min/1.73 m2 POC [facility] Comment: Normal eGFR >= 60 mL/min/1.73 m2 The eGFR is calculated using the CKD-EPI equation. The eGFR declines with age. eGFR <60 mL/min/1.73 m2 is considered as "decreased" This equation should only be used for patients 18 and older. According to the National [employer] ion's Kidney Disease Outcome Quality Initiative (KDOQI) classification and 2012 Kidney Disease Improving Global Outcomes (KDIGO) Clinical Practice Guideline, the stage of CKD should be categorized based on estimated GFR. Stage Description GFR mL/min/1.73 m2 1 Kidney damage with normal or high GFR >=90 2 Kidney damage with mild decrease in GF R 60-89 3a Mild to moderate decrease in GFR 45-59 3b Moderate to severe decrease in GFR 30-44 4 Severe decrease in GFR 15-29 5 Kidney failure <15 (or dialysis) POC Clean Dev Yes POC [facility] Performing Lab [facility] POC TELCO R Comment: [facility], [address] [place] [id number]; Lab Direct or: Vidhya Gilbert MD Specimen Anatomical Collection Method Collection Time Receive d Time (Source) Location / / Volume Laterality Blood 03/06/2022 10:52 03/06/2022 AM CDT 10:52 AM CDT Tobi Stark APN POCT ORDERABLES - DEVICE Performing Organization Address City/State/ZIP Code Phon e Number POC [facility] .Serum Creatinine (03/06/2022 10:15 AM CDT)Only the most recent of4 results within the time period is included. athologist Signature Creatinine 0.84 0.67 - 1.17 [facility] mg/dL Comment: Testing Performed at [facility], [address] [place] [address], [address], [place] [address] Specimen Anatomical Collection Method Collection Time Receive d Time (Source) Location / / Volume Laterality Blood 03/06/2022 10:15 03/06/2022 AM CDT 10:30 AM CDT Narrative [facility] - 03/06/2022 11:05 AM CDT Labs and imaging a day prior please. Chris nks! Tobi Stark OFFSET PRESS ASSISTANT LAB BLOOD ORDERABLES Performing Organization Address City/State/ZIP Code Phon e Number [address] [place] [address] [address] (ABNORMAL) .CBC (03/06/2022 10:15 AM CDT)Only the most recent of4 resultswithin the time period is included. athologist Signature WBC 5.2 4.0 - 11.0 [facility] K/uL RBC 4.21 (L) 4.50 - 6.00 [facility] M/uL Hgb 12.9 (L) 14.0 - 18.0 [facility] gm/dL Comment: As part of CBC or as an individ ual orderable testing performed at [facility], [address] [place] [address] , [address], [place] [phone] Hct 38.9 (L) 40.0 - 54.0 % [facility] Comment: As part of CBC or as an individ ual orderable testing performed at [facility], [address] [place] [address] , [address], [place] [phone] MCV 92 82 - 98 fL [facility] MCH 30.6 27.0 - 31.0 pg [facility] MCHC 33.2 31.0 - 36.0 gm/dL [facility] RDW-SD 48.9 (H) 35.1 - 46.3 fL [facility] RDW-CV 14.5 12.0 - 15.5 % [facility] Platelet count 159 140 - 440 K/uL [facility] Comment: As part of CBC or as an individ ual orderable testing performed at [facility]al Separ[facility], [address] [facility] , [address], [place] [phone] MPV 9.9 4.0 - 10.4 fL [facility] INRBC 0.0 <=0.0 % [facility] Comment: The INRBC (instrument NRBC) value reflec ts the enumeration of nucleated red blood cells contained i n a 200uL sample of whole blood analyzed by the instrumen t. This value may differ from the NRBC value reported in a manual differential, which is based on a 100 cell differentia l. As part of CBC testing performed at [facility] [address] [facility], [address], [place] [phone] Specimen Anatomical Collection Method Collection Time Receive d Time (Source) Location / / Volume Laterality Blood 03/06/2022 10:15 03/06/2022 AM CDT 10:16 AM CDT Narrative [facility] - 03/06/2022 10:22 AM CDT Labs and imaging a day prior please. Chris nks! Tobi Stark APN LAB BLOOD ORDERABLES Performing Organization Address City/State/ZIP Code Phon e Number [facility] [address] [facility] [place] [address] [address] Glomerular Filtration Rate (03/06/2022 10:15 AM CDT)Only the most recent of4 resultswithin the time period is included. athologist Signature eGFR-AA 101 >=60 [facility] mL/min/1.73 sq. m Comment: Normal eGFR >= 60 mL/min/1.73 m2 Note: The eGFR is calculated using the C KD-EPI equation. The eGFR declines with age. eGFR <60 mL/min/1.73 m2 is considered as "decreased". This equation should only be used for patients 18 and older. According to the National Kid[employer] ion's Kidney Disease Outcome Quality Initiative (KDOQI) classification and 2012 Kidney Disease Improving Global Outcomes (KDIGO) Clinical Practice Guideline, the stage of CKD should be categorized based on estimated GFR. Stage Description GFR mL/min/1. 73 m2 1 Normal or high GFR >=90 2 Mildly decreased GFR 60-89 3a Mildly to moderately decreased GFR 45-59 3b Moderately to severely decreased GFR 30-44 4 Severely decreased GFR 15-29 5 Kidney failure <15 Testing Performed at [facility], [facility] [facility], [place] [address] eGFR-ISRAEL 87 >=60 mL/min/1.73 sq. m [facility] Comment: Normal eGFR >= 60 mL/min/1.73 m2 Note: The eGFR is calculated using the C KD-EPI equation. The eGFR declines with age. eGFR <60 mL/min/1.73 m2 is considered as "decreased". This equation should only be used for patients 18 and older. According to the National [employer]'s Kidney Disease Outcome Quality Initiative (KDOQI) classification and 2012 Kidney Disease Improving Global Outcomes (KDIGO) Clinical Practice Guideline, the stage of CKD should be categorized based on estimated GFR. Stage Description GFR mL/min/1. 73 m2 1 Normal or high GFR >=90 2 Mildly decreased GFR 60-89 3a Mildly to moderately decreased GFR 45-59 3b Moderately to severely decreased GFR 30-44 4 Severely decreased GFR 15-29 5 Kidney failure <15 Testing Performed at [facility], [facility], [address], [place] [address] Specimen Anatomical Collection Method Collection Time Receive d Time (Source) Location / / Volume Laterality Blood 03/06/2022 10:15 03/06/2022 AM CDT 10:30 AM CDT Narrative [facility] - 03/06/2022 11:05 AM CDT Labs and imaging a day prior please. Chris nks! Tobi Stark APN LAB BLOOD ORDERABLES Performing Organization Address City/State/ZIP Code Phon e Number [address] [place] [address] [address] Fractionated Bilirubin (03/06/2022 10:15 AM CDT)Only the most recent of4 results within the time period is included. athologist Signature Bili Total 0.8 <=1.2 mg/dL [facility] Comment: Indocyanine Green (ICG) may cause falsel y elevated bilirubin results. Total and direct bilirubin must not be measured from samples containing indocyanine green. False elevation of total bilirubin can b e seen in patients with IgG concentrations above 28 g/L. Testing Performed at [facility] Offal Separator [facility], [address] [place] [address], [address], [place] [address] Bili Direct 0.2 <=0.3 mg/dL [facility] Comment: Indocyanine Green (ICG) may cause falsel y elevated bilirubin results. Total and direct bilirubin must not be measured from samples containing indocyanine green. Testing Performed at [facility], [address], [address], [place] [address] Bili Indirect 0.6 0.0 - 0.9 mg/dL [facility] Comment: Testing Performed at [facility], [address], [address], [place] [address] Specimen Anatomical Collection Method Collection Time Receive d Time (Source) Location / / Volume Laterality Blood 03/06/2022 10:15 03/06/2022 AM CDT 10:30 AM CDT Narrative [facility] - 03/06/2022 11:05 AM CDT Labs and imaging a day prior please. Chris nks! Tobi Stark APN LAB BLOOD ORDERABLES Performing Organization Address City/State/ZIP Code Phon e Number [facility] [address] [place] [address] [address] (ABNORMAL) Differential (03/06/2022 10:15 AM CDT)Only the most recent of4 resultswithin the time period is included. athologist Signature Neutrophil % 78.2 (H) 42.0 - [facility] 66.0 % Comment: As part of Differential perform ed at [facility], [address] [place] [address], [address], [place] [phone] Lymphocyte % 6.2 (L) 24.0 - 44.0 % [facility] Monocyte % 13.5 (H) 2.0 - 7.0 % [facility] Eosinophil % 1.5 1.0 - 4.0 % [facility] Basophil % 0.4 0.0 - 1.0 % [facility] IGRE % 0.2 0.0 - 0.4 % [facility] Comment: IGRE % count includes Metamyelocytes, My elocytes, and Promyelocytes. As part of Differential performed at [facility], [address] [place] [address], [address], [place] [phone] Neutrophil Abs 4.07 1.70 - 7.30 K/uL [facility] Lymphocyte Abs 0.32 (L) 1.00 - 4.80 K/uL [facility] Monocyte Abs 0.70 0.08 - 0.70 K/uL [facility] Eosinophil Abs 0.08 0.04 - 0.40 K/uL [facility] Basophil Abs 0.02 0.00 - 0.10 K/uL [facility] IG Abs 0.01 0.00 - 0.04 K/uL [facility] Specimen Anatomical Collection Method Collection Time Receive d Time (Source) Location / / Volume Laterality Blood 03/06/2022 10:15 03/06/2022 AM CDT 10:16 AM CDT Narrative [facility] - 03/06/2022 10:22 AM CDT Labs and imaging a day prior please. Chris nks! Tobi Stark APN LAB BLOOD ORDERABLES Performing Organization Address City/[facility]/ZIP [facility] e Number [address] [place] [address] [address] Uric Acid (03/06/2022 10:15 AM CDT)Only the most recent of4 resultswithin the time period is included. athologist Signature Uric Acid 4.7 3.4 - 7.0 [facility] mg/dL Comment: Testing Performed at [facility], [address] [place] [address], [address], [place] [address] Specimen Anatomical Collection Method Collection Time Receive d Time (Source) Location / / Volume Laterality Blood 03/06/2022 10:15 03/06/2022 AM CDT 10:30 AM CDT [facility] - 03/06/2022 11:05 AM CDT Labs and imaging a day prior please. Chris nks! Tobi Stark APN LAB BLOOD ORDERABLES Performing Organization Address City/[facility] Phon e Number [address] [place] [address] [address] BUN (03/06/2022 10:15 AM CDT)Only the most recent of4 resultswithin the time period is included. athologist Signature BUN 14 6 - 23 mg/dL [facility] Comment: Testing Performed at [facility], [address], [address], [place] [address] Specimen Anatomical Collection Method Collection Time Receive d Time (Source) Location / / Volume Laterality Blood 03/06/2022 10:15 03/06/2022 AM CDT 10:30 AM CDT Narrative [facility] - 03/06/2022 11:05 AM CDT Labs and imaging a day prior please. Chris nks! Tobi Dodge Lincoln OFFSET PRESS ASSISTANT LAB BLOOD ORDERABLES Performing Organization Address City/State/ZIP Code Phon e Number [facility] [address] [place] [address] [address] ALT (03/06/2022 10:15 AM CDT)Only the most recent of4 resultswithin the time period is included. P athologist Signature ALT 8 <=41 U/L [facility] Comment: Testing Performed at [facility], [address], [address], [place] [id number] Specimen Anatomical Collection Method Collection Time Receive d Time (Source) Location / / Volume Laterality Blood 03/06/2022 10:15 03/06/2022 AM CDT 10:30 AM CDT Narrative [facility] - 03/06/2022 11:05 AM CDT Labs and imaging a day prior please. Chris andujars! Tobi Dodge Lincoln MORENO LAB BLOOD ORDERABLES Performing Organization Address City/[facility]/ZIP Code Phon e Number [facility] [address] [place] [address] [address] Aspartate Aminotransferase (03/06/2022 10:15 AM CDT)Only the most recent of4 resultswithin the time period is included. P athologist Signature AST 12 <=40 U/L [facility] Comment: Testing Performed at [facility], [address], [address], [place] [address] Specimen Anatomical Collection Method Collection Time Receive d Time (Source) Location / / Volume Laterality Blood 03/06/2022 10:15 03/06/2022 AM CDT 10:30 AM CDT Narrative [facility] - 03/06/2022 11:05 AM CDT Labs and imaging a day prior please. Chris nks! Tobi Dodge Stark OFFSET PRESS ASSISTANT LAB BLOOD ORDERABLES Performing Organization Address City/State/ZIP Code Phon e Number [facility] [address] [place] [address] [address] Total Protein (03/06/2022 10:15 AM CDT)Only the most recent of4 resultswithin the time period is included. P athologist Signature Total Protein 7.1 6.4 - 8.3 [facility] g/dL Comment: Testing Performed at B [facility] Am [facility] Care [facility], [address], [address], [place] [address] Specimen Anatomical Collection Method Collection Time Receive d Time (Source) Location / / Volume Laterality Blood 03/06/2022 10:15 03/06/2022 AM CDT 10:30 AM CDT Narrative [facility] - 03/06/2022 11:05 AM CDT Labs and imaging a day prior please. Chris nks! Tobi Dodge Lincoln OFFSET PRESS ASSISTANT LAB BLOOD ORDERABLES Performing Organization Address [facility]/ZIP Code Phon e Number [facility] [address] [place] [address] [address] Phosphorus Level (03/06/2022 10:15 AM CDT)Only the most recent of4 resultswithin the time period is included. P athologist Signature Phosphorus 3.1 2.5 - 4.5 [facility] mg/dL Comment: Testing Performed at B Lab Am [facility] Care [facility], [address], [address], [place] [address] Specimen Anatomical Collection Method Collection Time Receive d Time (Source) Location / / Volume Laterality Blood 03/06/2022 10:15 03/06/2022 AM CDT 10:30 AM CDT Narrative [facility] - 03/06/2022 11:05 AM CDT Labs and imaging a day prior please. Chris nks! Tobi Dodge Lincoln OFFSET PRESS ASSISTANT LAB BLOOD ORDERABLES Performing Organization Address City/[facility]/ZIP Code Phon e Number [facility] [address] [place] [address] [address] Alkaline Phosphatase (03/06/2022 10:15 AM CDT)Only the most recent of4 results within the time period is included. athologist Signature Alk Phos 112 40 - 129 U/L [facility] Comment: Testing Performed at [facility], [address], [address], [place] [address] Specimen Anatomical Collection Method Collection Time Receive d Time (Source) Location / / Volume Laterality Blood 03/06/2022 10:15 03/06/2022 AM CDT 10:30 AM CDT Narrative [facility] - 03/06/2022 11:05 AM CDT Labs and imaging a day prior please. Chris nks! Tobi Stark APN LAB BLOOD ORDERABLES Performing Organization Address [facility] Phon e Number [facility] [address] [place] [address] [address] Magnesium Level (03/06/2022 10:15 AM CDT)Only the most recent of4 resultswithin the time period is included. athologist [facility] Magnesium 2.0 1.6 - 2.6 [facility] mg/dL Comment: Testing Performed at [facility] Lab Am [facility], [address], [address], [place] [address] Specimen Anatomical Collection Method Collection Time Receive d Time (Source) Location / / Volume Laterality Blood 03/06/2022 10:15 03/06/2022 AM CDT 10:30 AM CDT [facility] - 03/06/2022 11:05 AM CDT Labs and imaging a day prior please. Chris nks! Tobi Stark APN LAB BLOOD ORDERABLES Performing Organization Address [facility] Phon e Number [facility] [address] [place] [address] [address] LDH (03/06/2022 10:15 AM CDT)Only the most recent of4 resultswithin the time period is included. athologist Signature LDH 159 135 - 225 [facility] U/L Comment: Results greater than 1651 U/L may not be reliable due to matrix effect with extended dilution as it exceeds the launch manager s recommended limit. Caution should be exercised when interpreting such betty ues and done in conjunction with clinica l context. Testing Performed at [facility] Offal Separator [facility], [address], [address], [place] [address] Specimen Anatomical Collection Method Collection Time Receive d Time (Source) Location / / Volume Laterality Blood 03/06/2022 10:15 03/06/2022 AM CDT 10:30 AM CDT Narrative [facility] - 03/06/2022 11:05 AM CDT Labs and imaging a day prior please. Chris nks! Tobi DAUGHERTYN LAB BLOOD ORDERABLES Performing Organization Address City/[facility]/ZIP Code Phon e Number [facility] [address] [place] [address] [address] (ABNORMAL) Glucose Level (03/06/2022 10:15 AM CDT)Only the most recent of4 resultswithin the time period is included. athologist Signature Glucose Level 107 (H) 70 - 99 [facility] mg/dL Comment: Effective 05/28/16, the glucose reference intervals have been updated based on [place] [employer] guidelines (Standards of Medical Care in Diabetes 2016. Diabetes Care 2016; 39: S13-S22). Fasting blood glucose: Normal: 70-99 mg/dL Impaired fasting glucose (increased risk for diabetes or pre-diabetes): 100- 125 mg/dL Diabetes mellitus: >/=126 mg/dL Random blood glucose: Normal: 70-199 mg/dL Note: Random glucose >100 mg/dL is assoc iated with increased risk for diabetes Testing Performed at [facility] Offal Separator [facility], [facility], [address], [place] [address] Specimen Anatomical Collection Method Collection Time Receive d Time (Source) Location / / Volume Laterality Blood 03/06/2022 10:15 03/06/2022 AM CDT 10:30 AM CDT Narrative [facility] - 03/06/2022 11:05 AM CDT Labs and imaging a day prior please. Chris nks! Tobi Stark APN LAB BLOOD ORDERABLES Performing Organization Address City/[facility]/ZIP Code Phon e Number [facility] [address] [place] [address]. [place] [address] [address] Calcium Level (03/06/2022 10:15 AM CDT)Only the most recent of4 resultswithin the time period is included. athologist Signature Calcium Lvl 9.7 8.4 - 10.2 [facility] mg/dL Comment: Testing Performed at [facility] Lab Am [facility] Care Bl, [address], [address], [place] [address] Specimen Anatomical Collection Method Collection Time Receive d Time (Source) Location / / Volume Laterality Blood 03/06/2022 10:15 03/06/2022 AM CDT 10:30 AM CDT Narrative [facility] - 03/06/2022 11:05 AM CDT Labs and imaging a day prior please. Chris nks! Tobi Stark APN LAB BLOOD ORDERABLES Performing Organization Address City/[facility] Phon e Number [facility] [address] [place] [address] [address] Albumin Level (03/06/2022 10:15 AM CDT)Only the most recent of4 resultswithin the time period is included. athologist Signature Albumin Lvl 4.1 3.5 - 5.2 [facility] gm/dL Comment: Testing Performed at [facility] Lab Am [facility], [address], [address], [place] [id number] Specimen Anatomical Collection Method Collection Time Receive d Time (Source) Location / / Volume Laterality Blood 03/06/2022 10:15 03/06/2022 AM CDT 10:30 AM CDT Narrative [facility] - 03/06/2022 11:05 AM CDT Labs and imaging a day prior please. Chris nks! Tobi Stark APN LAB BLOOD ORDERABLES Performing Organization Address City/State/ZIP [facility] Phon e Number [facility] [address] [place] [address] [address] Electrolyte Panel (03/06/2022 10:15 AM CDT)Only the most recent of4 results within the time period is included. athologist Signature Sodium Lvl 140 136 - 145 [facility] mEq/L Comment: Testing Performed at [facility] Lab Am [facility], [address], [address], [place] [address] Potassium Lvl 4.2 3.5 - 5.1 mEq/L [facility] Comment: Testing Performed at [facility] Am [facility] dg, [address], [address], [place] [address] Chloride 105 98 - 107 mEq/L [facility] Comment: Testing Performed at [facility] Am [facility] dg, [address], [address], [place] [address] CO2 26 22 - 29 mEq/L [facility] Comment: Testing Performed at [facility] Am [facility], [address], [address], [place] [address] Anion Gap 9 4 - 14 mEq/L [facility] Comment: Testing Performed at [facility] Am [facility], [address], [address], [place] [address] Specimen Anatomical Collection Method Collection Time Receive d Time (Source) Location / / Volume Laterality Blood 03/06/2022 10:15 03/06/2022 AM CDT 10:30 AM CDT Narrative [facility] - 03/06/2022 11:05 AM CDT Labs and imaging a day prior please. Chris nks! Tobi Stark OFFSET PRESS ASSISTANT LAB BLOOD ORDERABLES Performing Organization Address City/State/ZIP Code Phon e Number [facility] [address] [place] [address] [address] X-ray Chest 2 Views (10/18/2021 9:45 AM ACTING TEACHER) Anatomical Region Laterality Modality Chest Digital Radiography Specimen (Source) Anatomical Collection Method Collection Time Re ceived Time Location / / Volume Laterality 10/18/2021 9:50 AM ACTING TEACHER Impressions 10/18/2021 9:52 AM ACTING TEACHER Stable bilateral pleural thickening/small pleural effusions. No new intrathoracic abnormality. 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 Findings: Stable bilateral pleural thickening/smal l pleural effusions. No pneumothorax. Heart and mediastinal contours are stabl e. Left atrial appendage closure device is seen. Left anterior chest wall cardiac monitoring device is present. Mild atelectasis/scarring in the lung ba ses. No new focal lung opacity. 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 Findings: Stable bilateral pleural thickening/smal l pleural effusions. No pneumothorax. Heart and mediastinal contours are stabl e. Left atrial appendage closure device is seen. Left anterior chest wall cardiac monitoring device is present. Mild atelectasis/scarring in the lung ba ses. No new focal lung opacity. IMPRESSION: Stable bilateral pleural thickening/smal l pleural effusions. No new intrathoracic abnormality. Tobi Stark APN [facility] ORDER KATIE after 09/01/2021 Insurance Payer Benefit Plan Subscriber ID Effective Phone Address Typ e / Group Dates MEDICARE MEDICARE PART [id number] 2014-Prese [phone] [facility] Medicare A AND B nt 82 SOLUTIONS [address] [place] [address] [employer] MANAGED A[employer] O [id number] 2000-Prese [address] [place] [address] [place] [address] Advance Directives Code Status Date Activated Date Inactivated Comments Full Code 05/29/2021 10:06 PM 05/30/2021 6:03 PM Code Status Date Activated Date Inactivated Comments Full Code 05/09/2017 12:45 AM 05/12/2017 6:43 PM Full Code 10/15/2016 5:59 AM 10/17/2016 7:18 PM Care Teams [employer]obile [employer] Property Underwriter Relationship Specialty Start Date End Date David Malone MD PCP - External Referring Hematology and 01/20/16 [address] Oncology 10th [place] [phone] David Malone MD PCP - External Follow Up Hematology and 01/20/16 [address] A Oncology 10th [place] [phone] London Fitzgerald MD PCP - External Follow Up Colorectal Surgery 01/20/[address] [facility] [address] [place] [phone] Donnell Norwood MD PCP - General Lymphoma and Myeloma 02/20/16 [address] [place] [address] Nabil Carranza MD PCP - External Primary Internal Medicine 11/23/15 [address] [facility] [place] [phone] Júnior Voss MD PCP - External Follow Up Cardiology 02/22/16 [address] [place] [address] Nasir Amador, PCP - External Follow Up General Surgery 02/22/16 MD Jarrell [address] [facility] [address] [place] [phone] Heriberto James PCP - External Follow Up Urology 05/01/17 MD Eli [facility] [address] [place] [address] [phone] (work)
--- OUTSIDE RECORDS SUMMARY | 2022-09-01 22:20 | XMS REPORT | Continuity of Care Document ---
:1950 Author Organization [facility] t Address [address] [place] [address] Dr. Kelley[address] [place] [id number] Care Team Providers Name Role Phone Nabil Carranza MD Primary Care Physician CAMILA CHIN Attending Clinician Unavailable SYSTEM, PROVIDER NOT IN Attending Clinician Unavailable SENDY JEAN BAPTISTE Attending Clinician Unavailable POLA COLEMAN Attending Clinician Unavailable Samra RIVAS, Jamari Pineda Attending Clinician De Del Cid DO Attending Clinician [phone] Carlos Conn MD Attending Clinician Jocelyn SPAIN, Kasie Attending Clinician Unavailable Rudy RIVAS, Jensen Attending Clinician Marilyn Zapata MD Attending Clinician Alessandro Ruiz MD Attending Clinician ALESSANDRO RUIZ Attending Clinician Unavailable Olena Paz APN Attending Clinician [phone] Pola Coleman MD Attending Clinician Donnell Norwood MD Attending Clinician Gladis Guadalupe RN Attending Clinician Unavailable Trace RIVAS, Jeannie Attending Clinician Rikki Helms Attending Clinician Susan Arias NP Attending Clinician Tobi Stark APN Attending Clinician [phone] Roberta Christiansen RN Attending Clinician Unavailable DONNELL NORWOOD Attending Clinician Unavailable TOBI STARK Attending Clinician Unavailable Olive Ruth Attending Clinician Unavailable HERNANDO THOMAS Attending Clinician Unavailable Hernando Thomas MD Attending Clinician ALEXA JULIAN Attending Clinician Unavailable Alexa Julian MD Attending Clinician KALIE FLETCHER Attending Clinician Unavailable DIRK LAM Attending Clinician Unavailable Dirk Warner Attending Clinician [phone] Madiha Mar Attending Clinician Unavailable ANGY CORREA Attending Clinician Unavailable ALF SUN Attending Clinician Unavailable JOSS CHESTER Attending Clinician Unavailable ELIA SADLER Attending Clinician Unavailable NASRIN RICKETTS Attending Clinician Unavailable Ernesto RIVAS, Aziza Attending Clinician Mark Hauser MD Attending Clinician Nitza Gilmore CRNA Attending Clinician Sharona Handy MD Attending Clinician [phone] Tha Durand MD Attending Clinician Henrique Voss Attending Clinician [phone] MD AZIZA RAMIREZ Attending Clinician Unavailable Alejandro Mccormack MD, [facility] Attending Clinician Unavailable SEJAL JOHNSTON Attending Clinician Unavailable JOSE LANCE Attending Clinician Unavailable CAMILA CHIN Admitting Clinician Unavailable JAMARI RODRIGUEZ Admitting Clinician Unavailable ELISSA ALVAREZ Admitting Clinician Unavailable ELIA SADLER Admitting Clinician Unavailable AZIZA RAMIREZ Admitting Clinician Unavailable MD AZIZA RAMIREZ Admitting Clinician Unavailable Payers Payer Name Policy Type Policy Number Effective Date Expiration Date S [facility] MEDICARE PART A [id number] 2014 AND B 00:00:00 [employer]ET[employer] O [id number] 7006-01-01 00:00:00 Problems Condition Condition Condition Status Onset Resolution Last Treating Co mments Source Name Details Category Date Date Treatment Clinician Date Cervical Cervical Disease Active 2021-11 Metho di herniated herniated 0-26 st disc disc 00:00: Hospita 00 l Hematochez Hematochez Disease Active U nivers ia ia 7-28 ity of 00:00: MD [facility] Serum Serum Disease Active Univers creatinine creatinine 7-28 it y of raised raised 00:00: MD [facility] Mass of Mass of Disease Active Last Univers colon colon 7-14 Assessmen ity of 00:00: t & Plan: Melissa marsh of this [place] note n might be Cancer different Center from the original. [place] py planned for May 27Go y called to 2nd floor pharmacyW maynor and Verbal instructi ons providedP t understan ds he will need to communicserene nagy with MD managing Plavix therapy for clearance to hold 5 days prior to procedure . Persistent Persistent Disease Active M ethodi atrial atrial 2-07 st fibrillati fibrillati 00:00: Ho spita on on 00 l Obstructiv Obstructiv Disease Active Last U nivers e sleep e sleep 9-24 Assessmen ity o f apnea apnea 00:00: t & Plan: Melissa marsh of this [place] note n might be Cancer different Center from the original. Prescript ion for new CPAP machine provided along with supplies. Continue to use CPAP more than 70% of the time, more than 4 hours at a time, for cardiovas cular and neurocogn itive protectio n.The patient was educated to obtain a new mask and tubing every 3 months. Return to clinic in 1 year or sooner if needed. Non-diabet Non-diabet Disease Active U nivers ic ic 7-16 ity of hyperglyce hyperglyce 00:00: [place] b[place]eno kaity 00 MD [facility] Coronary Coronary Disease Active 2016-11 Last Unive rs arterioscl arterioscl 2-22 Assessmen ity of erosis erosis 00:00: t & Plan: Melissa marsh of this Riley note n might be Cancer different Center from the original. Coronary calcifica tions seen on CT of chest February 20, 2017. Left heart catheteri zation 05/08/2017 shows no significa nt coronary obstructi ons. 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 Patient is planned to undergo cataract surgery [address] Herib[facility] On exam patient does not demonstra te any signs of decompres sive heart failure. Denies chest pain and has no angiograp hic evidence of coronary disease on left heart catheteri zation 05/08/2017. Patient is undergoin g a low risk procedure . Cardiovas cular risk is 1 for dilated cardiomyo paty with ejection fraction of 47%. According to the RCRI risk score patient has a 0.9% or low risk for any major cardiac event during this procedure . There should be no reason patient cannot go forward with his planned procedure . Nonischemi Nonischemi Disease Active Last U nivers c c 05-22 Assessmen ity of congestive congestive 00:00: t & Plan: [place] cardiomyop cardiomyop Melissa gutiérrez g of this Anderso note n might be Cancer different Center from the original. Echo today shows no change from previous echo done 1 year ago. Will continue with same medicatio ns and doses. Continue with lisinopri l 10 mg daily. As patient asymptoma tic, will not change medicatio ns. 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 Last echocardi ogram July 2017 shows an ejection fraction of 47%. On physical exam patient shows no evidence of decompens ated heart failure. He states he's no longer taking any Lasix but continues to be on the spironola ctone 25 milligram s by mouth daily. continue current managemen t Lightheade Lightheade Disease Active U anthony dness dness 05-08 ity of 00:00: [place] 00 MD [facility] Essential Essential Disease Active Last Uni vers (primary) (primary) 04-24 Assessmen i ty of hypertensi hypertensi 00:00: t & Plan: [place] on on Melissa marsh of this Anderso note n might be Cancer different Center from the original. BP stable on current medicatio n with lisinopri l 10 mg daily. Continue with same. Cough Cough Disease Active Univers 5-09 ity of 00:00: [place] 00 MD [facility] Fever Fever Disease Active Univers 4-21 ity of 00:00: 00 MD [facility] Pneumonia, Pneumonia, Disease Active U anthony organism organism 4-21 ity of unspecifie unspecifie 00:00: [place] em[place] 00 MD [facility] Dank' Dank' Disease Active U nivers s s 3-09 ity of thyroiditi thyroiditi 00:00: [place] em[place] s s 00 MD [facility] Shortness Shortness Disease Active 2015-11 Uni vers of breath of breath 2-14 ity of 00:00: [place] 00 MD [facility] Pleural Pleural Disease Active 2015-11 Univers effusion effusion 2-14 ity of 00:00: [place] 00 MD [facility] Dyspnea at Dyspnea at Disease Active 2015-11 U willers rest rest 2-14 ity of 00:00: [place] 00 MD [facility] Other Other Disease Active 2015-11 Overview: Univer s malaise malaise 11-23 Formattin ity o f and and 00:00: g of this [place] fatigue fatigue 00 note might be Riley different n from the Cancer original. Center HL ICD10 regulator y upload Hypothyroi Hypothyroi Disease Active 2015-11 U nivers dism dism 11-10 ity of 00:00: [place] MD [facility] Degenerati Degenerati Disease Active U nivers on of on of 06-03 ity of interverte interverte [place]:00[place] bral disc bral disc 00 MD [facility] Mantle Mantle Disease Active Last Univers cell cell 02-21 Assessmen ity of lymphoma lymphoma 00:00: t & Plan: [place] as of lymph of lymph 00 Melissa RIVAS nodes of nodes of g of this And erso multiple multiple note n sites sites might be Cancer different Center from the original. Patient has progressi on of disease and currently on treatment .All oncologic managemen t and treatment to be deferred to primary team. H/O: H/O: Disease Active Univers depression depression it y of [facility] Pyloric Pyloric Disease Active Univers stenosis stenosis ity of [place] MD [facility] Paroxysmal Paroxysmal Disease Active Last U nivers atrial atrial Assessmen ity of fibrillati fibrillati t & Plan: [place] on on Formattin g of this Anderso note n might be Cancer different Center from the original. No evidence of further Afib noted since CV. Rhythm stable on amiodaron e 100 mg BID. He says he feels better and tolerates the medicatio n better by taking it 100 mg BID. Will continue with same dose for now. Continue with aspirin 81 mg daily for anticoagu lation as reaction with DOACs and rhythm stable. 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 l Cervical Cervical Disease Active Metho di radiculopa radiculopa st thy at C7 thy at C7 Hosp dayne l Allergies, Adverse Reactions, Alerts Allergy Allergy Status Severity Reaction(s) Onset Inactive Treating Comm ents Source Name Type Date Date Clinician SPIRONOL DRUG Active Other 2018-0 MD ACTONE INGREDI 07-08 [facility] 00:00: n 00 SPIRONOL DRUG Active Other 2018-0 MD ACTONE INGREDI 07-08 [place] 00:00: n 00 SPIRONOL DRUG Active Other 2018-0 MD ACTONE INGREDI 07-08 [facility] 00:00: n 00 SPIRONOL DRUG Active Other 2018-0 MD ACTONE INGREDI 07-08 [facility] 00:00: n 00 SPIRONOL DRUG Active Other 2018-0 MD ACTONE INGREDI 07-08 [place] 00:00: n 00 SPIRONOL DRUG Active Other 2018-0 MD ACTONE INGREDI 07-08 [place] 00:00: n 00 SPIRONOL DRUG Active Other 2018-0 MD ACTONE INGREDI 07-08 [facility] 00:00: n 00 SPIRONOL DRUG Active Other 2018-0 MD ACTONE INGREDI 07-08 [facility] 00:00: n 00 SPIRONOL DRUG Active Other 2018-0 MD ACTONE INGREDI 07-08 [facility] 00:00: n 00 Spironol Propensi Active Other (See Impact on Univers actone ty to Comments) 07-08 hormones ity o f adverse 00:00: [place] reaction 00 MD [facility] Pseudoep Propensi Active Other (See 2016-11 Causes Me thodi hedrine ty to Comments) 12-[address] Hcl adverse 00:00: fib Hospita reaction 00 l s to drug Apixaban Propensi Active Rash 2016-11 Method i ty to 12-03 st adverse 00:00: Hospita reaction 00 l s to drug Dabigatr Propensi Active Rash 2016-11 Method i an ty to 12-03 st Etexilat adverse 00:00: Hospita e reaction 00 l s to drug Rivaroxa Propensi Active Rash 2016-11 Method i ban ty to 12-03 st adverse 00:00: Hospita reaction 00 l s to drug DABIGATR DRUG Active Low Rash 2015- MD AN INGREDI - Anderso ETEXILAT 00:00: n E 00 APIXABAN DRUG Active Low Rash 2015- MD INGREDI -04 [facility] 00:00: n 00 DABIGATR DRUG Active Low Rash 2015- MD AN INGREDI -04 [place] ETEXILAT 00:00: n E 00 APIXABAN DRUG Active Low Rash 2016-0 MD INGREDI 5-04 [facility] 00:00: n 00 DABIGATR DRUG Active Low Rash 2016-0 MD AN INGREDI 5-04 Anderso ETEXILAT 00:00: n E 00 APIXABAN DRUG Active Low Rash 2016-0 MD INGREDI 5-04 [facility] 00:00: n 00 DABIGATR DRUG Active Low Rash 2016-0 MD AN INGREDI 5-04 Anders[facility] ETEXILAT 00:00: n E 00 APIXABAN DRUG Active Low Rash 2016-0 MD INGREDI 5-04 [place] 00:00: n 00 DABIGATR DRUG Active Low Rash 2016-0 MD AN INGREDI 5-04 Anderso ETEXILAT 00:00: n E 00 APIXABAN DRUG Active Low Rash 2016-0 MD INGREDI 5-04 Anders[facility] 00:00: n 00 DABIGATR DRUG Active Low Rash 2016-0 MD AN INGREDI 5-04 Anderso ETEXILAT 00:00: n E 00 APIXABAN DRUG Active Low Rash 2016-0 MD INGREDI 5-04 Anders[facility] 00:00: n 00 DABIGATR DRUG Active Low Rash 2016-0 MD AN INGREDI 5-04 Anderso ETEXILAT 00:00: n E 00 APIXABAN DRUG Active Low Rash 2016-0 MD INGREDI 5-04 Anders[facility] 00:00: n 00 DABIGATR DRUG Active Low Rash 2016-0 MD AN INGREDI 5-04 Anderso ETEXILAT 00:00: n E 00 APIXABAN DRUG Active Low Rash 2016-0 MD INGREDI 5-04 Anders[facility] 00:00: n 00 DABIGATR DRUG Active Low Rash 2016-0 MD AN INGREDI 5-04 Anderso ETEXILAT 00:00: n E 00 APIXABAN DRUG Active Low Rash 2016-0 MD INGREDI 5-04 Anderso 00:00: n 00 Apixaban Propensi Active Rash 2016-0 Univer s ty to 5-04 ity of adverse 00:00: [place] reaction 00 MD [facility] Dabigatr Propensi Active Rash 2016-0 Univer s an ty to 5-04 ity of Etexilat adverse 00:00: [place] e reaction 00 MD [facility] DECONGES DRUG Active High Other 2016-0 MD T-AID 02-21 Anderso 00:00: n 00 DECONGES DRUG Active High Other 2015-0 MD T-AID 02-21 Anderso 00:00: n 00 DECONGES DRUG Active High Other 2015-0 MD T-AID 02-21 Anderso 00:00: n 00 DECONGES DRUG Active High Other 2015- MD T-AID 02-21 Anderso 00:00: n 00 DECONGES DRUG Active High Other 2015-0 MD T-AID 02-21 Anderso 00:00: n 00 DECONGES DRUG Active High Other 2015-0 MD T-AID 02-21 Anderso 00:00: n 00 DECONGES DRUG Active High Other 2015-0 MD T-AID 02-21 Anderso 00:00: n 00 DECONGES DRUG Active High Other 2015-0 MD T-AID 02-21 Anderso 00:00: n 00 DECONGES DRUG Active High Other 2015- MD T-AID 02-21 Anderso 00:00: n 00 Deconges Drug Active Other (See Afib Univ ers t-Aid Allergy Comments) 02-21 ity of 00:00: [place] 00 MD [facility] Deconges Propensi Active Other (See Afib Me thodi t-Aid ty to Comments) 02-21 st adverse 00:00: Hospita reaction 00 l s to drug Family History Family Member Diagnosis Comments Start Date Stop Date Source Paternal grandfather Other [facility] MD Horace [facility] Natural father Heart disease [facility] Natural father Hy[facility]ension [facility] Natural father Stroke [facility] Natural mother Arthritis [facility] Natural mother Hypertension [facility] Natural mother Stroke [facility] Social History Social Habit Start Date Stop Date Quantity Comments Source History SDOH [facility] Alcohol Frequency Hospita l History SDOH [facility] Alcohol Std Hospital Drinks History SDOH [facility] Alcohol Binge Hospital Alcohol intake 2022-08-28 2022-08-28 Current drinker Metho dist 00:00:00 00:00:00 of alcohol Hospital (finding) Tobacco use and 2022-08-21 2022-08-21 Smokeless tobacco Me thodist exposure 00:00:00 00:00:00 non-user Hospital Alcohol Comment 2017-10-02 2017-10-02 2 glasses/month Meth odist 00:00:00 00:00:00 Hospital Sex Ass[birth year] At [birth year] [facility] 00:00:00 00:00:00 Hospital Smoking Status Start Date Stop Date Source Never smoked tobacco [facility] Medications Ordered Filled Start Stop Current Ordering Indication Dosage Frequency Signature Comments Components Source Medication Medication Date Date Medication? Clinician (SIG) Name Name MELATONIN 2021-11 Yes 2mg QD Take 2 mg Met hodi ORAL 0-[address] 18:56: nightly. Hospita 29 l TURMERIC 2021-11 Yes QD Take by Method i ORAL 0-[address] 18:56: daily. 1 Hospita 29 teaspoon l daily of powder Lactobacill 2021-11 Yes 1{tbl} Q2D Take 1 Me thodi us 0-[address] acidophilus 18:56: mouth Hospi ta (PROBIOTIC 29 every l ORAL) other day. aspirin 2021-11 Yes 81mg QD Take 1 Methodi (ECOTRIN) 0-27 tablet (81 st 81 MG 18:56: mg total) Hospita enteric 29 by mouth l coated daily. tablet ascorbic 2021-11 Yes 1000mg QD Take 1 Metho di acid, 0-[address] vitamin C, 18:56: (1,000 mg Ho spita (VITAMIN C) 29 total) by l 1000 MG mouth tablet daily. 2 tabs = 2000mg cholecalcif 2021-11 Yes 1000U QD Take 1 Met hodi juan carlos, 0-[address] vitamin D3, 18:56: (1,000 Hosp dayne 1,000 unit 29 Units l tablet total) by mouth daily. 2 tabs acetaminoph 2021-11 Yes 1{tbl} Q4H Take 1-2 Methodi en-codeine 0-[address] (TYLENOL 00:00: mouth Hospita WITH 00 every 4 l CODEINE #3) (four) 300-30 mg hours as per tablet needed for moderate pain or severe pain .acute pain. methocarbam 2021-11- Yes 500mg Q8H Take 1 Me thodi oL 0-27 11-[address] (ROBAXIN) 00:00: 05:59 (500 mg Hosp dayne 500 MG 00 :00 total) by l tablet mouth every 8 (eight) hours as needed for muscle spasms for up to 30 days. methylPREDN 2021-11- Yes follow Met hodi ISolone 0-27 09-[address] (Medrol, 00:00: 04:59 directions Ho chaka Louie,) 4 mg 00 :00 l tablet rivaroxaban 2021-11 No 20mg QD Take 20 mg Methodi (XARELTO) 0-20 10-[address] 20 mg 14:20: 00:00 daily. Hospita tablet 56 :00 Allergic l to it but taking it lisinopril 2021-11 No 10mg QD Take 10 mg Methodi (PRINIVIL) 0-20 10-[address] 10 mg 14:20: 00:00 daily. Hospita tablet 40 :00 l aspirin 325 2021-11 No 325mg QD Take 325 Methodi MG buffered 0-20 10-[address] tablet 14:19: 00:00 mouth Hospita 29 :00 daily. l Calquence 2021-11 Yes 1{tbl} Q.5D Take 1 Meth stefania 100 mg 0-[address] capsule 00:00: mouth 2 Hospita 00 (two) l times a day. (for CA) levothyroxi Yes Paroxysmal TAKE 1 Univers ne 9-08 atrial TABLET BY ity of (SYNTHROID, 00:00: fibrillatio MOUTH [place] LEVOTHROID) 00 n EVERY DAY 50 mcg Anderso tablet n [facility] sotalol AF Yes 40mg Q.5D Take 40 mg M ethodi 80 mg [address] tablet 00:00: (two) Hospita 00 times a l day. 0.5 tab in AM = 40 mg 0.5 tab in PM = 40 mg levothyroxi 2021- No Paroxysmal TAKE 1 Univers ne 6-27 09-08 atrial TABLET BY ity of (SYNTHROID, 00:00: 00:00 fibrillatio MOUTH [place] LEVOTHROID) 00 :00 n EVERY DAY 50 mcg Anderso tablet n [facility] TURMERIC Yes Take by Univer s ORAL 5-06 mouth ity of 08:24: daily. Pt [place] 14 takes 1 MD abena Lin daily n [facility] Lactobac Yes 1{capsu Take 1 Univ ers no.41/Bifid 5-06 le} capsule by it y of obact no.7 08:24: mouth [place] (PROBIOTIC- 14 daily as 10 ORAL) needed. [facility] docusate Yes 200mg Take 200 Univ ers sodium 5-06 mg by ity of (COLACE) 08:24: mouth [place] 100 mg 14 daily. capsule [facility] melatonin 3 Yes 1.5mg Take 1.5 U nivers mg tablet 5-06 mg by ity of 08:24: mouth at [place] 14 bedtime. MD Riley garcia [facility] aspirin 81 Yes 81mg Take 81 mg U nivers mg EC 5-06 by mouth ity of tablet 08:24: daily. [place] [facility] cyanocobala Yes 2000ug Take 2,000 Univers min 2000 5-06 mcg by ity of MCG tablet 08:24: mouth [place] 14 daily. MD Lin [facility] cholecalcif Yes 400U Take 400 Un giorgio juan carlos, 5-06 Units by ity of vitamin D3, 08:24: mouth. [place] (VITAMIN 14 pt not D3) 5,000 sure of Anderso units tab dose n tablet [facility] acalabrutin Yes 100mg Take 100 U nivers ib 5-06 mg by ity of (Calquence) 08:24: mouth [place] 100 mg 14 twice MD capsule daily. Riley [facility] amoxicillin 2020-11- No 875mg Take 875 Univers -clavulanat 2-17 06-13 mg by ity of e 00:00: 00:00 mouth [place] (AUGMENTIN) 00 :00 daily. 875 mg-125 Anderso mg per n tablet [facility] sotalol 2020-11 Yes 80mg 80 mg Univers (sotalol 1-30 daily. ity of AF) 80 mg 00:00: [place] tablet 00 MD Lin [facility] sodium 2020-11 Yes Meibomian 3mL Irrigate Un giorgio chloride 0-21 gland with 3 mL ity o f 0.9% 00:00: dysfunction as [place] nebulizer 00 directed 3 MD solution (three) Anderso times a n day. Use [facility] nebulizer [place] solution as eyewash. Rinse both eyes 3x/day after blinking exercise. artificial 2020-11 Yes Mantle cell 1[drp] Administer Univers tears, 0-18 lymphoma of 1 drop to i ty of carboxymeth 00:00: lymph nodes both eyes [place] ylcellulose 00 of multiple 4 (four) MD , (Refresh sites times a Nate so Plus) 0.5% day. n ophthalmic Cancer solution Center Venclexta Yes 400mg 400 mg Unive rs 100 mg 07-24 daily. ity of tablet 00:00: [place] 00 MD [facility] [place] sodium 2021- No Hyposmolali 1g Take 1 U nivers chloride 1 07-23 ty and/or tablet (1 ity of g tablet 00:00: 00:00 hyponatremi g) by [place] 00 :00 a mouth twice Riley daily. n Cancer [place] butalbital- 2021- No Headache, 1{tbl} Take 1 Univers acetaminoph 07-15 unspecified tablet by ity of en-caffeine 00:00: 00:00 , not mouth [place] as (Esgic) 50 00 :00 otherwise every 6 M D mg-325 specified (six) Anderso mg-40 mg hours as n tablet needed for Cancer headaches Center for up to 45 doses. venetoclax Yes 400mg QD Take 4 Meth stefania (VENCLEXTA) 7-[address] 100 mg 00:00: (400 mg Hospita chemo 00 total) by l tablet mouth daily. clopidogrel 2020- No daily. Uni vers (PLAVIX) 75 05-08 12-21 ity of mg tablet 00:00: 00:00 [place] 00 :00 MD [facility] [place] rivaroxaban Yes 20mg QD Take 20 mg Methodi (XARELTO) 05-[address] 20 mg 14:04: daily. Hospita tablet 31 Allergic l to it but taking it lisinopril Yes 10mg QD Take 10 mg M ethodi (PRINIVIL) 05-[address] 10 mg 14:04: daily. Hospita tablet 31 l melatonin Yes 1.5mg QD Take 1.5 Met hodi (MELATIN) 3 7-[address] mg tablet 14:04: mouth Hospita 31 nightly. l TURMERIC 0 Yes 5mL QD Take 5 mL Meth stefania ORAL 7-[address] 14:04: daily. 1 Hospita 31 teaspoon l daily of powder Lactobacill 2020-0 Yes QD Take by Met hodi us 7- mouth st acidophilus 14:04: daily. Hosp dayne (PROBIOTIC 31 l ORAL) aspirin 325 0 Yes 325mg QD Take 325 M ethodi MG buffered 7-[address] tablet 14:04: mouth Hospita 31 daily. l rivaroxaban Yes 20mg QD Take 20 mg Methodi (XARELTO) 7- by mouth st 20 mg 14:04: daily. Hospita tablet 31 Allergic l to it but taking it lisinopril Yes 10mg QD Take 10 mg M ethodi (PRINIVIL) 7- by mouth st 10 mg 14:04: daily. Hospita tablet 31 l melatonin Yes 1.5mg QD Take 1.5 Met hodi (MELATIN) 3 7-[address] mg tablet 14:04: mouth Hospita 31 nightly. l TURMERIC Yes 5mL QD Take 5 mL Meth stefania ORAL 7-[address] 14:04: daily. 1 Hospita 31 teaspoon l daily of powder Lactobacill 0 Yes QD Take by Met hodi us 7-[address] acidophilus 14:04: daily. Hosp dayne (PROBIOTIC 31 l ORAL) aspirin 325 0 Yes 325mg QD Take 325 M ethodi MG buffered 7-[address] tablet 14:04: mouth Hospita 31 daily. l docusate 2020- No 300mg QD Take 300 Met hodi sodium 6-30 06-[address] (COLACE) 08:50: 00:00 mouth Hospita 100 MG 44 :00 daily. l capsule docusate 2020- No 300mg QD Take 300 Met hodi sodium 6-30 06-[address] (COLACE) 08:50: 00:00 mouth Hospita 100 MG 44 :00 daily. l capsule flaxseed 2020- No Take by Metho di powder 05-[address] 08:50: 00:00 teaspoon Hospita 40 :00 daily l flaxseed 2020- No Take by Metho di powder 05-[address] 08:50: 00:00 teaspoon Hospita 40 :00 daily l levothyroxi 2021- No Paroxysmal TAKE 1 Univers ne 04-25 atrial TABLET BY ity of (SYNTHROID, 00:00: 00:00 fibrillatio MOUTH [place] LEVOTHROID) 00 :00 n EVERY DAY 50 mcg Marco tablet [facility] [place] aspirin No 81mg QD Take 1 Methodi (ECOTRIN) 02-15 tablet (81 st 81 MG 00:00: 00:00 mg total) Hospit a enteric 00 :00 by mouth l coated daily. tablet aspirin No 81mg QD Take 1 Methodi (ECOTRIN) 02-15 tablet (81 st 81 MG 00:00: 00:00 mg total) Hospit a enteric 00 :00 by mouth l coated daily. tablet ketoconazol 2020- No as needed. Univers e (NIZORAL) 01-03 ity of 2% cream 00:00: 00:00 [place] 00 :00 [facility] colchicine 2020- No .3mg Q.5D Take 0.5 Me thodi 0.6 mg 11-13-[address] tablet 00:00: 00:00 (0.3 mg Hospita 00 :00 total) by l mouth 2 (two) times a day as needed (chest pain post ablation). colchicine 2020- No .3mg Q.5D Take 0.5 Me thodi 0.6 mg 11-13-[address] tablet 00:00: 00:00 (0.3 mg Hospita 00 :00 total) by l mouth 2 (two) times a day as needed (chest pain post ablation). omeprazole 2020- No 20mg Q.5D Take 1 Meth stefania OTC 11-1315 tablet (20 st (PriLOSEC 00:00: 00:00 mg total) Ho spita OTC) 20 MG 00 :00 by mouth 2 l EC tablet (two) times a day. omeprazole 2020- No 20mg Q.5D Take 1 Meth stefania OTC -12 04-15 tablet (20 st (PriLOSEC 00:00: 00:00 mg total) Ho spita OTC) 20 MG 00 :00 by mouth 2 l EC tablet (two) times a day. 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 amIODarone 2016-11 No 100mg Q.5D Take 100 M ethodi (PACERONE) 11-24 04-[address] 100 MG 00:00: 00:00 mouth 2 Hospita tablet 00 :00 (two) l times a day. amIODarone 2016-11 No 100mg Q.5D Take 100 M ethodi (PACERONE) 11-24 04-[address] 100 MG 00:00: 00:00 mouth 2 Hospita tablet 00 :00 (two) l times a day. levothyroxi Yes 50ug QD Take 50 Met hodi ne 9-[address] (SYNTHROID) 00:00: mouth Hospi ta 50 mcg 00 daily. l tablet levothyroxi Yes 50ug QD Take 50 Met hodi ne 9-[address] (SYNTHROID) 00:00: mouth Hospi ta 50 mcg 00 daily. l tablet levothyroxi Yes 50ug QD Take 50 Met hodi ne 9-[address] (SYNTHROID) 00:00: mouth Hospi ta 50 mcg 00 daily. l tablet Immunizations Ordered Filled Immunization Date Status Comments Sourc e Immunization Name Name Pfizer SARS-CoV-2 2022-01-30 Completed Univer sity of Vaccination (Purple 00:00:00 [place] [facility] PFIZER READY TO USE 2022-01-30 Completed Metho dist COVID-19 MRNA 00:00:00 Hospital VACCINATION Covid-19 Vaccine 2020-12-[address] [facility] (Pf) [facility]00 [facility] (Pfizer/biontech) Covid-19 Vaccine 2020-12-[address] [facility] (Pf) 00:00:00 [facility] (BovControl/biontech) Covid-19 Vaccine 2020-12-[address] [facility] MRNA (PF) 12yr+ 00:00:00 Medical C enter (BovControl/BioNTCSRware)(I [id number]) [facility] COVID-19 2020-12-27 Completed [facility] MRNA VACCINATION 00:00:00 Hospital Covid-19 Vaccine 2020-11-[address] [facility] (Pf) 00:00:00 [facility] (BovControl/biontCSRware) Covid-19 Vaccine 2020-11-[address] [facility]na (Pf) 00:00:00 [facility] (BovControl/Agricultural SolutionsntCSRware) Covid Vaccine 2020-11-[address] [facility] MRNA (PF) 12yr+ 00:00:00 Medical C enter (BovControl/XINTECNTCSRware)(I [id number]) [facility] COVID-2020-11-28 Completed [facility] MRNA VACCINATION 00:00:00 Hospital Vital Signs Vital Name Observation Time Observation Value Comments Source WEIGHT 2020-11-23 11:32:16 98.8 kg WEIGHT 2020-11-06 15:03:00 102.5 kg WEIGHT 2020-07-26 10:41:35 99.1 kg WEIGHT 2020-05-29 13:50:00 102.7 kg Systolic blood 2022-09-02 02:24:00 119 mm[Hg] Method is Hospital pressure Diastolic blood 2022-09-02 02:24:00 70 mm[Hg] [facility] pressure Heart rate 2022-09-02 02:24:00 78 /min [facility] Body temperature 2022-09-02 02:24:00 36.17 Marina [facility] Respiratory rate 2022-09-02 02:24:00 24 /min [facility] Body height 2022-09-02 02:24:00 185.4 cm [facility] Body weight 2022-09-02 02:24:00 90.719 kg [facility] BMI 2022-09-02 02:24:00 26.39 kg/m2 [facility] Oxygen saturation in 2022-09-02 02:24:00 96 /min [facility] Arterial blood by Pulse oximetry Systolic blood 2022-07-10 16:25:34 126 mm[Hg] Univer [facility]ity of pressure [facility] Diastolic blood 2022-07-10 16:25:34 73 mm[Hg] Unive rsity of pressure [facility] Heart rate 2022-07-10 16:25:34 60 /min [facility] [place] [facility] Body temperature 2022-07-10 16:25:34 36.5 Marina Univ ersity [facility] MD [facility] Respiratory rate 2022-07-10 16:25:34 18 /min Univ ersity [facility] MD [facility] Body weight 2022-07-10 16:25:34 95.4 kg [facility] [place] MD [facility] BMI 2022-07-10 16:25:34 27.58 kg/m2 [facility] [place] MD Tran on [facility] Oxygen saturation in 2022-07-10 16:25:34 98 /min University Arterial blood by Derrell haq Pulse oximetry [facility] Body height 2022-03-06 15:30:00 186 cm [facility] [place] MD Tran on [facility] Systolic blood 2021-05-02 16:15:00 124 mm[Hg] [facility] pressure Diastolic blood 2021-05-02 16:15:00 66 mm[Hg] [facility] pressure Heart rate 2021-05-02 16:15:00 53 /min [facility] Respiratory rate 2021-05-02 16:15:00 20 /min [facility] Oxygen saturation in 2021-05-02 16:15:00 99 /min [facility] Arterial blood by Pulse oximetry Body temperature 2021-05-02 15:41:00 36.11 [place] [facility] Body height 2021-05-02 11:46:00 185.4 cm [facility] Body weight 2021-05-02 11:46:00 101.606 kg [facility] BMI 2021-05-02 11:46:00 29.55 kg/m2 [facility] Procedures Procedure Date / Time Performing Clinician Source Performed XR CERVICAL SPINE 2 OR 3 2022-08-28 22:38:00 Karyna Brand [facility] ECG 12-LEAD 2022-08-28 16:07:01 Jamari Rodriguez spital HC COMPLETE BLD COUNT 2022-08-28 09:26:00 [facility] W/AUTO DIFF BASIC METABOLIC PANEL 2022-08-28 09:26:00 [facility] B NATRIURETIC PEPTIDE 2022-08-28 09:26:00 [facility] MAGNESIUM LEVEL 2022-08-28 09:26:00 [facility] PHOSPHORUS LEVEL 2022-08-28 09:26:00 [facility] ESTIMATED GFR 2022-08-28 09:26:00 [facility] PARTIAL THROMBOPLASTIN 2022-08-28 09:25:00 [facility] TIME (PTT) ESTIMATED GFR 2022-08-28 08:13[facility] 1 2022-08-28 01:12:13 [facility] XR CERVICAL SPINE 1 2022-08-27 22:04:28 Jamari Rodriguez [facility] ARTERIAL LINE 2022-08-27 21:33:38 [facility] ID AN ELECTIVE 2022-08-27 20:34:00 [facility] ENDOTRACHEAL AIRWAY DISCECTOMY, CERVICAL, WITH 2022-08-27 20:24:00 Jamari Rodriguez [facility] FUSION, ANTERIOR APPROACH URINE CULTURE 2022-08-21 22:00:00 [facility] URINALYSIS SCREEN AND 2022-08-21 20:17:00 [facility] MICROSCOPY, WITH REFLEX TO CULTURE HC COMPLETE BLD COUNT 2022-08-21 20:04:00 [facility] W/AUTO DIFF BASIC METABOLIC PANEL 2022-08-21 20:04:00 [facility] PROTHROMBIN TIME WITH INR 2022-08-21 20:04:00 [facility] HEPATIC FUNCTION PANEL 2022-08-21 20:04:00 [facility] TYPE AND SCREEN 2022-08-21 20:04:00 [facility] ESTIMATED GFR 2022-08-21 20:04:00 [facility] ECG PRE/POST OP 2022-08-21 19:53:15 [facility] XR CERVICAL SPINE COMPLETE 2022-07-10 22:08:15 Jamari Rodriguez [facility] MRI CERVICAL SPINE W WO 2022-07-10 21:45:00 Jamari Rodriguez [facility] CONTRAST FREE THYROXINE 2022-07-10 15:13:00 [facility] THYROID STIMULATING 2022-07-10 15:13:00 Jesus Alberto [facility] HORMONE [facility] HEMOGLOBIN A1C 2022-07-10 15:13:00 [facility] PETCT CONTRAST ENHANCED 2022-03-06 17:15:43 Tobi Stark [facility] SUBSEQUENT TREATMENT [facility] POC CREATININE 2022-03-06 15:52:00 Tobi Stark [facility] COMPLETE BLOOD COUNT W/ 2022-03-06 15:15:00 Tobi Stark [facility] DIFFERENTIAL [facility] COMPREHENSIVE METABOLIC 2022-03-06 15:15:00 Tobi Stark [facility] PANEL [facility] URIC ACID 2022-03-06 15:15:00 Tobi Stark [facility] MAGNESIUM LEVEL 2022-03-06 15:15:00 Tobi Stark [facility] PHOSPHORUS LEVEL 2022-03-06 15:15:00 Tobi Stark [facility] LACTATE DEHYDROGENASE 2022-03-06 15:15:00 Tobi Stark [facility] [place] [facility] Results CBC 2022-03-06 15:15:00 Tobi Stark [facility] MANUAL DIFFERENTIAL 2022-03-06 15:15:00 [facility] GLUCOSE LEVEL 2022-03-06 15:15:00 Tobi Stark [facility] BLOOD UREA NITROGEN 2022-03-06 15:15:00 [facility] ELECTROLYTE PANEL 2022-03-06 15:15:00 Tobi Stark [facility] SERUM CREATININE 2022-03-06 15:15:00 Tobi Stark [facility] .GLOMERULAR FILTRATION 2022-03-06 15:15:00 Tobi Stark [facility] CALCIUM LEVEL TOTAL 2022-03-06 15:15:00 Tobi Stark Un [facility] ALBUMIN LEVEL 2022-03-06 15:15:00 Tobi Stark [facility] ALKALINE PHOSPHATASE 2022-03-06 15:15:00 Tobi Stark U [facility] ALANINE AMINOTRANSFERASE 2022-03-06 15:15:00 Tobi Stark Che [facility] [place] [facility] ASPARTATE AMINOTRANSFERASE 2022-03-06 15:15:00 Tobi Stark [facility] [place] [facility] TOTAL PROTEIN 2022-03-06 15:15:00 Tobi Stark [facility] FRACTIONATED BILIRUBIN 2022-03-06 15:15:00 Tobi Stark [facility] [place] [facility] PETCT CONTRAST ENHANCED 2021-10-21 23:26:08 Tobi Stark [facility] SUBSEQUENT TREATMENT [facility] COMPLETE BLOOD COUNT W/ 2021-10-21 20:53:00 Tobi Stark [facility] DIFFERENTIAL [facility] COMPREHENSIVE METABOLIC 2021-10-21 20:53:00 Tobi Stark [facility] PANEL [facility] URIC ACID 2021-10-21 20:53:00 Tobi Stark [facility] MAGNESIUM LEVEL 2021-10-21 20:53:00 Tobi Stark [facility] PHOSPHORUS LEVEL 2021-10-21 20:53:00 Tobi Stark [facility] LACTATE DEHYDROGENASE 2021-10-21 20:53:00 Tobi Stark [facility] [place] [facility] Results CBC 2021-10-21 20:53:00 Tobi Stark [facility] MANUAL DIFFERENTIAL 2021-10-21 20:53:00 [facility] 2021-10-21 20:53:00 Tobi Stark [facility] BLOOD UREA NITROGEN 2021-10-21 20:53:00 [facility] ELECTROLYTE PANEL 2021-10-21 20:53:00 Tobi Stark [facility] SERUM CREATININE 2021-10-21 20:53:00 Tobi Stark [facility] .GLOMERULAR FILTRATION 2021-10-21 20:53:00 Tobi Stark [facility] RATE [facility] CALCIUM LEVEL TOTAL 2021-10-21 20:53:00 [facility] ALBUMIN LEV[facility] 2021-10-21 20:53:00 Tobi Stark [facility] ALKALINE PHOSPHATASE 2021-10-21 20:53:00 [facility] ALANINE AMINOTRANSFERASE 2021-10-21 20:53:00 Tobi Stark Che ng [facility] [place] [facility] ASPARTATE AMINOTRANSFERASE 2021-10-21 20:53:00 Tobi Stark [facility] [place] [facility] TOTAL PROTEIN 2021-10-21 20:53:00 Tobi Stark [facility] FRACTIONATED BILIRUBIN 2021-10-21 20:53:00 Tobi Stark [facility] [place] [facility] XR CHEST 2 VW 2021-10-18 15:45:00 Tobi Stark [facility] COMPLETE BLOOD COUNT W/ 2021-10-18 14:25:00 Tobi Stark [facility] DIFFERENTIAL [facility] COMPREHENSIVE METABOLIC 2021-10-18 14:25:00 Tobi Stark [facility] PANEL [facility] URIC ACID 2021-10-18 14:25:00 Tobi Stark [facility] MAGNESIUM LEVEL 2021-10-18 14:25:00 Tobi Stark [facility] PHOSPHORUS LEVEL 2021-10-18 14:25:00 Tobi Stark [facility] LACTATE DEHYDROGENASE 2021-10-18 14:25:00 Tobi Stark [facility] [place] [facility] Results CBC 2021-10-18 14:25:00 Tobi Stark [facility] MANUAL DIFFERENTIAL 2021-10-18 14:25:00 [facility]SE LEVEL 2021-10-18 14:25:00 Tobi Stark [facility] BLOOD UREA NITROGEN 2021-10-18 14:25:00 [facility] ELECTROLYTE PANEL 2021-10-18 14:25:00 Tobi Stark [facility] SERUM CREATININE 2021-10-18 14:25:00 [facility] .GLOMERULAR FILTRATION 2021-10-18 14:25:00 Tobi Stark [facility] RATE [facility] CALCIUM LEVEL TOTAL 2021-10-18 14:25:00 [facility] ALB[facility] L[facility] 2021-10-18 14:25:00 Tobi Stark [facility] ALKALINE PHOSPHATASE 2021-10-18 14:25:00 [facility] ALANINE AMINOTRANSFERASE 2021-10-18 14:25:00 Tobi Stark Che [facility] [place] [facility] ASPARTATE AMINOTRANSFERASE 2021-10-18 14:25:00 Tobi Stark [facility] [place] [facility] TOTAL PROTEIN 2021-10-18 14:25:00 Tobi Stark [facility] FRACTIONATED BILIRUBIN 2021-10-18 14:25:00 Tobi Stark [facility] [place] [facility] COMPLETE BLOOD COUNT W/ 2021-09-29 15:50:00 Donnell Norwood [facility] DIFFERENTIAL [facility] COMPREHENSIVE METABOLIC 2021-09-29 15:50:00 Donnell Norwood [facility] PANEL [facility] MAGNESIUM LEVEL 2021-09-29 15:50:00 Donnell Norwood [facility] PHOSPHORUS LEVEL 2021-09-29 15:50:00 Donnell Norwood [facility] LACTATE DEHYDROGENASE 2021-09-29 15:50:00 Donnell Norwood [facility] URIC ACID 2021-09-29 15:50:00 Donnell Norwood [facility] Results CBC 2021-09-29 15:50:00 Donnell Norwood [facility] MANUAL DIFFERENTIAL 2021-09-29 15:50:00 Donnell Norwood [facility] GLUCOSE LEVEL 2021-09-29 15:50:00 Donnell Norwood [facility] BLOOD UREA NITROGEN 2021-09-29 15:50:00 Donnell Norwood [facility] ELECTROLYTE PANEL 2021-09-29 15:50:00 Donnell Norwood [facility] SERUM CREATININE 2021-09-29 15:50:00 Donnell Norwood [facility] .GLOMERULAR FILTRATION 2021-09-29 15:50:00 Donnell Norwood [facility] CALCIUM LEVEL TOTAL 2021-09-29 15:50:00 Donnell Norwood [facility] ALBUMIN LEVEL 2021-09-29 15:50:00 Donnell Norwood [place] [facility] ALKALINE PHOSPHATASE 2021-09-29 15:50:00 Donnell Norwood [facility] ALANINE AMINOTRANSFERASE 2021-09-29 15:50:00 Donnell Norwood [facility] ASPARTATE AMINOTRANSFERASE 2021-09-29 15:50:00 Donnell [facility] TOTAL PROTEIN 2021-09-29 15:50:00 Donnell Norwood [place] [facility] FRACTIONATED BILIRUBIN 2021-09-29 15:50:00 Donnell Norwood [facility] ID ECHO TRANSESOPHAG R-T 2021-05-02 14:36:00 Aziza Ramirez [facility] 2D W/PRB IMG ACQUISJ I&R PROTHROMBIN TIME WITH INR 2021-04-26 18:14:00 Aziza Ramirez [facility] HC COMPLETE BLD COUNT 2021-04-26 18:14:00 Aziza Ramirez [facility] W/AUTO DIFF BASIC METABOLIC PANEL 2021-04-26 18:14:00 Aziza Ramirez [facility] ESTIMATED GFR 2021-04-26 18:14:00 Aziza Ramirez Ho spital FLOW CYTOMETRY EVALUATION 2021-02-16 17:05:00 Aziza Ramirez [facility] CBC WITH PLATELET AND 2021-02-16 10:30:00 Aziza Ramirez [facility] DIFFERENTIAL MANUAL DIFFERENTIAL 2021-02-16 10:30:00 Ernesto [facility] BLOOD SMEAR CONSULT 2021-02-16 10:30:00 Ernesto [facility] BASIC METABOLIC PANEL 2021-02-16 09:00:00 Aziza Ramirez [facility] ESTIMATED GFR 2021-02-16 09:00:00 Aziza Ramirez spital ACTIVATED CLOTTING TIME 2021-02-15 16:10:00 Ernesto [facility] CV LEFT ATRIAL APPENDAGE 2021-02-15 16:01:00 Ernesto [facility] CLOSURE TRANSESOPHAGEAL ECHO 2021-02-15 16:01:00 Ernesto [facility] DURING CATH ACTIVATED CLOTTING TIME 2021-02-15 15:16:00 Ernesto [facility] ACTIVATED CLOTTING TIME 2021-02-15 14:49:00 Ernesto [facility] ACTIVATED CLOTTING TIME 2021-02-15 14:40:00 Ernesto [facility] ACTIVATED CLOTTING TIME 2021-02-15 14:20:00 Ernesto [facility] ANESTHESIA CONRAD 2021-02-15 14:00:40 Shanika [facility] ACTIVATED CLOTTING TIME 2021-02-15 13:58:00 Ernesto [facility] ARTERIAL LINE 2021-02-15 13:23:29 Shanika [facility] ACTIVATED CLOTTING TIME 2021-02-15 13:13:00 Ernesto [facility] ID AN ELECTIVE 2021-02-15 13:09:00 Shanika [facility] ENDOTRACHEAL AIRWAY [place] TYPE AND SCREEN 2021-02-15 11:49:00 Aziza Ramirez spital ECG PRE/POST OP 2021-02-15 11:30:05 Aziza Ramirez spital COVID-19 QUALITATIVE 2021-02-12 20:21:00 [facility] PROT[facility]OMBIN TIME WITH INR 2021-02-12 20:21:00 Aziza Ramirez [facility] MAGNESIUM LEVEL 2021-02-12 20:21:00 Aziza Ramirez Ho spital HC COMPLETE BLD COUNT 2021-02-12 20:21:00 Aziza Ramirez [facility] W/AUTO DIFF COMPREHENSIVE METABOLIC 2021-02-12 20:21:00 Aziza Ramirez [facility] PANEL ESTIMATED GFR 2021-02-12 20:21:00 Aziza Ramirez spital SMEAR REVIEW 2021-02-12 20:21:00 Aziza Ramirez spital Plan of Care Planned Activity Planned Date Details Comments Source Future Scheduled 2022-09-01 HEPATITIS B VACCINES [facility] Test 21:25:31 (1 of 3 - 3-dose series) [code = HEPATITIS B VACCINES (1 of 3 - 3-dose series)] Future Scheduled 2022-09-01 65+ PNEUMOCOCCAL [facility] Test 21:25:31 VACCINE (1 - PCV) [code = 65+ PNEUMOCOCCAL VACCINE (1 - PCV)] Future Scheduled 2022-09-01 Hepatitis C screening [facility] Test 21:25:31 (procedure) [code = 139967207] Future Scheduled 2022-09-01 SHINGLES VACCINES (1 [facility] Test 21:25:31 of 2) [code = SHINGLES VACCINES (1 of 2)] Future Scheduled 2022-09-01 COVID-19 VACCINE (4 - [facility] Test 21:25:31 Booster for Pfizer series) [code = COVID-19 VACCINE (4 - Booster for Pfizer series)] Future Scheduled 2022-09-01 INFLUENZA VACCINE Method [facility] Test 21:25:31 [code = INFLUENZA VACCINE] Future Scheduled 2022-09-01 COLONOSCOPY SCREENING [facility] Test 21:25:31 [code = COLONOSCOPY SCREENING] Future Scheduled 2022-08-30 COVID-19 Vaccination [facility] Test 07:23:32 (4 - Booster for [facility] Pfizer series) [code = Cente r COVID-19 Vaccination (4 - Booster for Pfizer series)] Future Scheduled 2022-07-03 INFLUENZA VACCINE (#1) [facility] Test 00:00:00 [code = INFLUENZA Medical Ce nter VACCINE (#1)] Future Scheduled 2021-12-03 65+ PNEUMOCOCCAL [facility] Test 15:17:34 VACCINE (1 of 4 - PCV13) [code = 65+ PNEUMOCOCCAL VACCINE (1 of 4 - PCV13)] Future Scheduled 2021-12-03 [facility] Test 15:17:34 (procedure) [code = [id number]] Future Scheduled 2021-12-03 SHINGLES VACCINES (#1) [facility] Test 15:17:34 [code = SHINGLES VACCINES (#1)] Future Scheduled 2021-12-03 COVID-19 VACCINE (3 - [facility] Test 15:17:34 Pfizer risk 4-dose series) [code = COVID-19 VACCINE (3 - Pfizer risk 4-dose series)] Future Scheduled 2021-12-03 INFLUENZA VACCINE [facility] Test 15:17:34 [code = INFLUENZA VACCINE] Future Scheduled 2021-12-03 COLONOSCOPY SCREENING [facility] Test 15:17:34 [code = COLONOSCOPY SCREENING] Future Scheduled 2021-12-03 65+ [facility]OCOCCAL [facility] Test 15:17:34 VACCINE (1 of 4 - PCV13) [code = 65+ PNEUMOCOCCAL VACCINE (1 of 4 - PCV13)] Future Scheduled 2021-12-03 Hepatitis C screening [facility] Test 15:17:34 (procedure) [code = [id number]] Future Scheduled 2021-12-03 SHINGLES VACCINES (#1) M [facility] Test 15:17:34 [code = SHINGLES VACCINES (#1)] Future Scheduled 2021-12-03 COVID-19 VACCINE (3 - [facility] Test 15:17:34 Pfizer risk 4-dose series) [code = COVID-19 VACCINE (3 - Pfizer risk 4-dose series)] Future Scheduled 2021-12-03 INFLUENZA VACCINE Method [facility] Hospital Test 15:17:34 [code = INFLUENZA VACCINE] Future Scheduled 2021-12-03 COLONOSCOPY SCREENING Me [facility] Test 15:17:34 [code = COLONOSCOPY SCREENING] Future Scheduled 2021-11-[address] [facility] Test 00:00:00 (12+) [code = Medical Center DEPRESSION SCREENING (12+)] Future Scheduled 2021-11-02 FALLS RISK SCREENING [facility] Test 00:00:00 [code = FALLS RISK Medical C enter SCREENING] Future Scheduled 2021-07-03 INFLUENZA VACCINE (#1) [facility] Test 00:00:00 [code = INFLUENZA Medical Ce nter VACCINE (#1)] Future Scheduled 2021-07-03 INFLUENZA VACCINE (#1) [facility] Test 00:00:00 [code = INFLUENZA Medical Ce nter VACCINE (#1)] Future Scheduled 2021-06-26 COVID-19 VACCINE (3 - [facility] Test 00:00:00 Pfizer booster) [code Medica l Center = COVID-19 VACCINE (3 - Pfizer booster)] Future Scheduled 2021-06-26 COVID-19 VACCINE (3 - [facility] Test 00:00:00 Pfizer booster) [code Medica l Center = COVID-19 VACCINE (3 - Pfizer booster)] Future Scheduled 2021-05-26 COVID-19 VACCINE (3 - [facility] Test 00:00:00 Booster for Pfizer Medical C enter series) [code = COVID-19 VACCINE (3 - Booster for Pfizer series)] Future Scheduled 2020-11-02 FALLS RISK SCREENING [facility] Test 00:00:00 [code = FALLS RISK Medical C enter SCREENING] Future Scheduled 2020-11-[address] [facility] Test 00:00:00 (12+) [code = Medical Center DEPRESSION SCREENING (12+)] Future Scheduled 2020-11-02 FALLS RISK SCREENING [facility] Test 00:00:00 [code = FALLS RISK Medical C enter SCREENING] Future Scheduled 2020-11-[address] [facility] Test 00:00:00 (12+) [code = Medical Center DEPRESSION SCREENING (12+)] Future Scheduled 2014 PNEUMOCOCCAL 65+ Y[address] [facility] Test 00:00:00 (1 of 1 - Medical Center [id number] PCV13) [code = PNEUMOCOCCAL 65+ YRS (1 of 1 - [id number]_Hkxlcek PCV13)] Future Scheduled 2014 PNEUMOCOCCAL 65+ YRS [facility] 00:00:00 (1 of 1 - Medical Center [id number]_Zgjnzkp PCV13) [code = PNEUMOCOCCAL 65+ YRS (1 of 1 - BHRB59_Azdnoxf PCV13)] Future Scheduled 2014 PNEUMOCOCCAL 65+ YRS [facility] 00:00:00 (1 - PCV) [code = Medical Ce nter PNEUMOCOCCAL 65+ YRS (1 - PCV)] Future Scheduled 1999 SHINGLES VACCINES ([address] [facility] 00:00:00 of 2) [code = SHINGLES Medic al Center VACCINES (1 of 2)] Future Scheduled 1999 SHINGLES VACCINES ([address] [facility] 00:00:00 of 2) [code = SHINGLES Medic al Center VACCINES (1 of 2)] Future Scheduled 1999 SHINGLES VACCINES ([address] [facility] 00:00:00 of 2) [code = SHINGLES Medic al Center VACCINES (1 of 2)] Future Scheduled 1968 DTAP/TDAP/TD VACCINES [facility] 00:00:00 (1 - Tdap) [code = Medical C enter DTAP/TDAP/TD VACCINES (1 - Tdap)] Future Scheduled 1968 DTAP/TDAP/TD VACCINES [facility] 00:00:00 (1 - Tdap) [code = Medical C enter DTAP/TDAP/TD VACCINES (1 - Tdap)] Future Scheduled 1968 DTAP/TDAP/TD VACCINES [facility] 00:00:00 (1 - Tdap) [code = Medical C enter DTAP/TDAP/TD VACCINES (1 - Tdap)] Future Scheduled 1967 HEPATITIS C SCREENING [facility] 00:00:00 [code = HEPATITIS C Medical Center SCREENING] Future Scheduled 1967 HEPATITIS C [facility]CRE[facility]ING [facility] 00:00:00 [code = HEPATITIS C Medical Center SCREENING] Future Scheduled 1967 HEPATITIS C [facility]CRE[facility]ING [facility] 00:00:00 [code = HEPATITIS C Medical Center SCREENING] Future Scheduled [address] [facility] malignant neoplasm of Medica l Center colon (procedure) [code = 701128414] Future Scheduled [address] [facility] 00:[facility]:00 malignant neoplasm of [facility] Center colon (procedure) [code = 935617182] Future Scheduled [address] [facility] 00:00:00 (combo) [code = CT Medical C enter Colonography (combo)] Future Scheduled [address] [facility] 00:[facility]:00 malignant neoplasm of [facility] Center colon (procedure) [code = 946219027] Future Scheduled [address] [facility] 00:00:00 malignant neoplasm of [facility] Center colon (procedure) [code = 957018346] Future Scheduled [address] [facility] 00:00:00 malignant neoplasm of [facility] Center colon (procedure) [code = 729084547] Future Scheduled [address] [facility] 00:[facility]:00 malignant neoplasm of Medica l Center colon (procedure) [code = 361046837] Future Scheduled 1949 Sigmoidoscopy [code = [facility] Sigm[facility]oscopy] Medical Cente r Procedure 2022-09-02 DISCECTOMY, CERVICAL, Method [facility] 03:05:00 ANTERIOR Encounters Start End Encounter Admission Attending Care Care Encounter Source Date/Time Date/Time Type Type Clinicians Facility Department ID 2022-05-30 Outpatient CHIN, SCOTT Bari/Hep/Nu [id number] 12:18:06 CAMILA Lin n 2021-08-19 Outpatient SYSTEM, SCOTT CHAVEZ [id number] 11:03:05 PROVIDER Marc o n 2021-05-27 Outpatient SYSTEM, SCOTT CHAVEZ [id number] 12:17:40 PROVIDER Marc o n 2020-12-13 Outpatient SYSTEM, SCOTT CHAVEZ [id number] 09:33:07 PROVIDER Marc o n 2020-10-04 Outpatient SYSTEM, SCOTT CHAVEZ [id number] 10:35:10 PROVIDER Marc o n 2020-06-27 Outpatient SYSTEM, SCOTT CHAVEZ [id number] 22:28:12 PROVIDER Marc o n 2020-05-22 Outpatient ITA, SCOTT CHAVEZ [id number] 09:29:11 SENDY Marc o n 2020-05-14 Outpatient LAVIS, SCOTT CHAVEZ [id number] 12:25:36 POLA garcia 2020-05-03 Outpatient SYSTEM, SCOTT CHAVEZ [id number] 14:37:11 PROVIDER Marc o n 2022-09-01 2022-09-02 Surgery Jamari Rodriguez 1.2.840.1 [id number] Methodi 22:05:00 01:40:[address] 3.430.2.7 Hospit a .3.756212 l .8 2022-09-01 2022-09-01 Anesthesia Maria Eugenia 1.2.840.1 [id number] Methodi 22:05:00 22:05:00 Event , De Mohr 49989.1.[address] 3.430.2.7 Hospit a .3.898982 l .8 2022-09-01 2022-09-01 Emergency Fabien, 1.2.840.1 [id number] 2100 [id number] Methodi 21:35:00 21:35:[address] 3.430.2.7 Hospit a .3.075231 l .8 2022-09-01 2022-09-01 Emergency [facility] [id number] [place] [address] 00:00:00 00:00:[address] CARLOS [address] 2022-09-01 2022-09-01 Travel 1.2.840.1 1.2.594.517 8228 [id number] Methodi 00:00:00 00:00:[address] 3.430.2.7 0.2.7.3.698 Ho spita .3.862122 084.8 l .8 2022-08-29 2022-08-29 Patient Kasie Banks 1.2.840.1 [id number] 21 [id number] Methodi 00:00:00 00:00:[address] 3.430.2.7 Hospit a .3.894644 l .8 2022-08-27 2022-08-28 [facility] Jamari Rodriguez 1.2.840.1 [id number] 21 [id number] Methodi 12:21:00 18:56:00 Encounter JVijay 87393.1.[address] 3.430.2.7 Hospit a .3.277153 l .8 2022-08-27 2022-08-28 Inpatient JAMARI RODRIGUEZ [facility] 021 [id number] Cecilia 00:00:00 00:00:[address] 2022-08-27 2022-08-27 Anesthesia Jensen Grant 1.2.840.1 1 [id number] Methodi 15:24:00 20:40:00 Event Marilyn Zapata 33636.1.[address] 3.430.2.7 Hospit a .3.687009 l .8 2022-08-27 2022-08-27 Surgery Jamari Rodriguez 1.2.840.1 [id number] 806 [id number] Methodi 15:00:00 19:30:[address] 3.430.2.7 Hospit a .3.478136 l .8 2022-08-27 2022-08-27 Travel 1.2.840.1 1.2.778.849 2444 [id number] Methodi 00:00:00 00:00:[address] 3.430.2.7 0.2.7.3.698 Ho spita .3.559523 084.8 l .8 2022-08-21 2022-08-21 Pre-Admiss Jamari Rodriguez 1.2.840.1 [id number] Methodi 13:10:00 14:10:00 ion J. 71904.1.[address] Testing 3.430.2.7 Hospit a .3.088193 l .8 2022-08-21 2022-08-21 Outpatient JAMARI RODRIGUEZ [facility] [id number] Cecilia 00:00:00 00:00:[address] 2022-08-21 2022-08-21 Travel 1.2.840.1 1.2.447.797 0194 [id number] Methodi 00:00:00 00:00:[address] 3.430.2.7 0.2.7.3.698 Ho spita .3.327412 084.8 l .8 2022-07-10 2022-07-10 [facility] Jamari Rodriguez 1.2.840.1 [id number] 21 [id number] Methodi 15:41:38 23:59:[address] 3.430.2.7 Hospit a .3.073157 l .8 2022-07-10 2022-07-10 [facility] Jamari Rodriguez 1.2.840.1 [id number] 21 [id number] Methodi 15:41:23 23:59:[address]49[address]1.[address] 3.430.2.7 Hospit a .3.428538 l .8 2022-07-10 2022-07-10 [facility] Alessandro Ruiz 1.2.840.1 [id number] 1 [id number] [facility] 09:45:00 23:59:00 Encounter 57233.1.1 it y of 3.412.2.7 [place] .3.297288 .[address] [facility] 2022-07-10 2022-07-10 Outpatient ALESSANDRO LEMUS MDA, MDA [id number] 09:45:00 23:59:00 Marctwyla garcia 2022-07-10 2022-07-10 [facility] Alessandro Ruiz 1.2.840.1 [id number] 10 [id number] [facility] 11:45:00 12:09:23 Visit 44887.1.1 ity of 3.412.2.7 [place] .3.828550 .[address] [facility] 2022-07-10 2022-07-10 Outpatient ALESSANDRO LEMUS MDA, MDA [id number] 11:20:20 12:09:23 Marc o 2022-07-10 2022-07-10 Outpatient JAMARI RODRIGUEZ [facility] 2099 [id number] Cecilia 00:00:00 00:00:00 037 Method i 2022-07-10 2022-07-10 Outpatient JAMARI RODRIGUEZ [facility] 2099 [id number] Cecilia 00:00:00 00:00:[address] 2022-07-10 2022-07-10 Travel 1.2.840.1 1.2.304.057 4671 [id number] [facility] 00:00:00 00:00:00 63132.1.1 350.1.13.41 ity of 3.412.2.7 [place]7.3.698 [place] .3.171205 084.8 MD Cloud [facility] 2022-07-10 2022-07-10 Travel 1.2.840.1 1.2.326.409 9844 [id number] Methodi 00:00:00 00:00:[address] 3.430.2.7 0.2.7.3.698 Ho spita .3.162388 084.8 l .8 2022-07-08 2022-07-08 Transcribe Jamari Rodriguez 1.2.840.1 [id number] Methodi 00:00:00 00:00:00 Orders Miriam 84529.1.[address] 3.430.2.7 Hospit a .3.451720 l .8 2022-05-15 2022-05-15 Orders Brandi, 1.2.840.1 [id number] 10 [id number] Univers 00:00:00 00:00:00 Only Okeroghleoncio 81670.1.1 i ty of 3.412.2.7 [place] .3.229255 MD Cloud [facility] 2022-04-26 2022-04-26 Natalee Coleman, 1.2.840.1 [id number] Univers 00:00:00 00:00:00 Pola 23945.1.1 ity of 3.412.2.7 [place] .3.678039 MD Cloud [facility] 2022-04-15 2022-04-15 Donnell Falk 1.2.840.1 [id number] 10 [id number] Univers 16:30:00 17:00:00 Appointmen 86108.1.1 i ty of ts 3.412.2.7 [place] .3.767527 MD Cloud [facility] 2022-04-14 2022-04-14 Anesthesia Collins, 1.2.840.1 [id number] 10 [id number] Univers 23:59:59 23:59:59 Event Gladis 57756.1.1 ity of 3.412.2.7 [place] .3.422665 MD Cloud [facility] 2022-03-07 2022-03-07 Office WoodwardJeannie 1.2.840.1 [id number] 1088 [id number] Univers 09:00:00 10:13:43 Visit Rikki George 21594.1.1 ity of 3.412.2.7 [place] .3.646671 MD Linares8 [facility] 2022-03-07 2022-03-07 Office CucoDonnell 1.2.840.1 [id number] 10 [id number] Univers 08:00:00 09:12:43 Visit 36102.1.1 ity of 3.412.2.7 [place] .3.220558 MD Cloud [facility] 2022-03-07 2022-03-07 Prep for Vinlujose, 1.2.840.1 [id number] 1092 [id number] Univers 00:00:00 00:00:00 Surgery Susan 13797.1.1 ity of 3.412.2.7 [place] .3.135142 MD Cloud [facility] 2022-03-07 2022-03-07 Travel 1.2.840.1 1.2.126.128 4671 [id number] Univers 00:00:00 00:00:00 50007.1.1 350.1.13.41 ity of 3.412.2.7 2.[place].7.3.698 [place] .3.933237 084.8 MD Cloud [facility] 2022-03-06 2022-03-06 Hospital [place], 1.2.840.1 [id number] [id number] [id number] Univers 09:49:29 23:59:00 Encounter Tobi 32673.1.1 it y of [place] 3.412.2.7 [place] .3.276313 MD Cloud [facility] 2022-03-06 2022-03-06 Ancillary [place] 1.2.840.1 [id number] 1088 [id number] Univers 10:30:00 13:00:00 Procedure Tobi 75575.1.1 it y of [place] 3.412.2.7 [place] .3.405181 MD Cloud [facility] 2022-03-06 2022-03-06 Travel 1.2.840.1 1.2.745.882 9573 [id number] Univers 00:00:00 00:00:00 81044.1.1 350.1.13.41 ity of 3.412.2.7 2.[place].7.3.698 [place] .3.453951 084.8 MD Cloud [facility] 2022-03-05 2022-03-05 Telephone Kuldip, 1.2.840.1 [id number] 1092 [id number] Univers 00:00:00 00:00:00 Roberta 62236.1.1 ity of 3.412.2.7 [place] .3.501484 MD Cloud [facility] 2021-10-22 2021-10-22 Outpatient DONNELL YEN [facility] [id number] 14:07:50 15:20:11 [facility] 2021-10-22 2021-10-22 Office Donnell [place] 1.2.840.1 [id number] 10 [id number] Univers 14:00:00 15:20:11 Visit 82765.1.1 ity of 3.412.2.7 [place] .3.007985 MD Cloud [facility] 2021-10-22 2021-10-22 Travel 1.2.840.1 1.2.378.095 9888 [id number] Univers 00:00:00 00:00:00 64800.1.1 350.1.13.41 ity of 3.412.2.7 2.[place].7.3.698 [place] .3.835236 084.8 MD Cloud [facility] 2021-10-21 2021-10-21 [facility] 1.2.840.1 [id number] 03504 [id number] Univers 14:42:50 23:59:00 Encounter 27377.1.1 it y of 3.412.2.7 [place] .3.751831 MD Linares8 [facility] 2021-10-21 2021-10-21 Outpatient REPLACED BY [facility] MDA [id number] 14:42:50 23:59:00 Marctwyla garcia 2021-10-21 2021-10-21 Ancillary 1.2.840.1 [id number] 1084 [id number] Univers 15:30:00 18:00:00 Procedure 26948.1.1 it y of 3.412.2.7 [place] .3.552465 .[address] [facility] 2021-10-21 2021-10-21 Outpatient REPLACED BY [facility] MDA [id number] MD 15:00:28 15:00:28 Marctwyla garcia 2021-10-21 2021-10-21 Travel 1.2.840.1 1.2.547.763 2293 [id number] [facility] 00:00:00 00:00:00 34946.1.1 350.1.13.41 ity of 3.412.2.7 2.[place]7.3.698 [place] .3.548216 084.8 .[address] [facility] 2021-10-18 2021-10-18 Ancillary [place], 1.2.840.1 [id number] 1087 [id number] [facility] 09:30:00 09:42:24 Procedure Tobi 03619.1.1 it [place] 3.412.2.7 [place] .3.450765 MD Linares8 [facility] 2021-10-18 2021-10-18 Outpatient BUSHRA STARK MDA MDA [id number] 08:36:19 09:42:24 TOBI garcia 2021-10-18 2021-10-18 Outpatient BUSHRA STARK MDA MDA [id number] 08:25:10 08:26:57 TOBI garcia 2021-10-18 2021-10-18 Telephone Faraz 1.2.840.1 [id number] [id number] Methodi 00:00:00 00:00:00 Olive Maria Dolores 04660.1.[address] 3.430.2.7 Hospit a .3.974520 l .8 2021-10-18 2021-10-18 Travel 1.2.840.1 1.2.583.660 0762 [id number] Univers 00:00:00 00:00:00 75341.1.1 350.1.13.41 ity of 3.412.2.7 2.[place].7.3.698 [place] .3.270830 084.[address] .[address] [facility] 2021-10-18 2021-10-18 Telephone Faraz, 1.2.840.1 [id number] 2100 [id number] Methodi 00:00:00 00:00:00 Olive Maria Dolores 29547.1.[address] 3.430.2.7 Hospit a .3.430045 l .8 2021-10-17 2021-10-17 Orders [place], 1.2.840.1 [id number] Univers 00:00:00 00:00:00 Only Bernardomila 12357.1.1 it[place] 3.412.2.7 [place] .3.850264 MD Linares8 [facility] 2021-10-11 2021-10-11 Outpatient BUSHRA THOMAS MDA MDA [id number] 11:36:57 12:12:45 HERNANDO teixeira 2021-10-11 2021-10-11 Telemedici William, 1.2.840.1 [id number] 1 [id number] Univers 11:00:00 12:12:45 raymundo Villagomez 98234.1.1 ity of 3.412.2.7 [place] .3.339177 MD Linares8 [facility] 2021-10-07 2021-10-07 Outpatient BUSHRA JULIAN MDA MDA [id number] 13:30:00 23:59:00 ALEXA garcia 2021-10-07 2021-10-07 [facility] Eliel, 1.2.840.1 [id number] [facility] 13:30:00 23:59:00 Encounter Alexa 94090.1.1 it y of 3.412.2.7 [place] .3.578879 MD Linares8 [facility] 2021-10-07 2021-10-07 Travel 1.2.840.1 1.2.494.994 9004 [id number] [facility] 00:00:00 00:00:00 94500.1.1 350.1.13.41 ity of 3.412.2.7 [place]7.3.698 [place] .3.986572 084.8 .[address] [facility] 2021-10-04 2021-10-04 Outpatient BUSHRA FLETCHER [facility] MDA [id number] 11:22:15 13:08:09 KALIE garcia 2021-10-04 2021-10-04 Travel 1.2.840.1 1.2.299.354 4388 [id number] [facility] 00:00:00 00:00:00 09147.1.1 350.1.13.41 ity of 3.412.2.7 2.2.7.3.698 [place] .3.220564 084.8 MD Linares8 [facility] 2021-09-29 2021-09-29 Outpatient BUSHRA LAM [facility] [id number] 11:00:50 23:59:00 DIRK garcia 2021-09-29 2021-09-29 [facility] Dirk Lam 1.2.840.1 [id number] [facility] 11:00:50 23:59:00 Encounter Madiha Mar 67961.1.1 ity of 3.412.2.7 [place] .3.136972 MD Cloud [facility] 2021-09-29 2021-09-29 Outpatient [facility] [id number] MD 08:30:00 10:59:00 Marc garcia 2021-09-29 2021-09-29 [facility] 1.2.840.1 [id number] [facility] 08:30:00 10:59:00 Encounter 54642.1.1 it y of 3.412.2.7 [place] .3.924394 MD Cloud [facility] 2021-09-29 2021-09-29 Travel 1.2.840.1 1.2.063.452 0298 [id number] [facility] 00:00:00 00:00:00 05086.1.1 350.1.13.41 ity of 3.412.2.7 2.[place].7.3.698 [place] .3.166217 084.8 .8 [facility] 2021-09-14 2021-09-14 Brown Stark, 1.2.840.1 [id number] Univers 00:00:00 00:00:00 Only Tobi 98246.1.1 it[place] of [place] 3.412.2.7 [place] .3.776823 .8 [facility] 2021-08-22 2021-08-22 Outpatient CUCODONNELL MDA MDA [id number] 08:15:04 09:48:42 Marc garcia 2021-08-19 2021-08-19 Outpatient ELIEL, MDA MDA [id number] MD 10:00:00 23:59:00 ALEXA garcia 2021-08-02 2021-08-02 Outpatient BUSHRA STARK, MDA MDA [id number] 06:30:00 23:59:00 TOBI Marc garcia 2021-08-02 2021-08-02 Outpatient CUCODONNELL MDA MDA [id number] 07:25:52 10:17:13 Marc garcia 2021-08-02 2021-08-02 Outpatient MDA MDA [id number] 07:36:52 07:36:52 Marc garcia 2021-08-01 2021-08-01 Outpatient EL MDA MDA [id number] 10:14:07 23:59:00 Marc garcia 2021-08-01 2021-08-01 Outpatient EL SUNNY, MDA MDA [id number] 09:22:20 10:27:32 ANGY garcia 2021-07-29 2021-07-31 Outpatient EL GENARO, MDA MDA [id number] 10:38:58 06:54:24 DIRK garcia 2021-07-29 2021-07-29 Outpatient MDA MDA [id number] 07:30:00 23:59:00 Marc garcia 2021-07-29 2021-07-29 Outpatient EL SUN, MDA MDA [id number] 08:46:13 08:46:13 ALF garcia 2021-07-23 2021-07-23 Outpatient BUSHRA STARK, MDA MDA [id number] MD 10:30:00 23:59:00 TOBI garcia 2021-07-23 2021-07-23 Outpatient BUSHRA STARK, MDA MDA [id number] MD 11:36:06 13:32:55 TOBI garcia 2021-07-22 2021-07-22 Outpatient EL EGNARO, MDA MDA [id number] MD 11:12:31 23:59:00 DIRK garcia 2021-07-15 2021-07-15 Outpatient EL GENARO, MDA MDA [id number] MD 12:00:00 23:59:00 DIRK garcia 2021-07-15 2021-07-15 Outpatient BUSHRA STARK, MDA MDA [id number] 11:01:25 12:20:40 TOBI garcia 2021-07-15 2021-07-15 Outpatient BUSHRA STARK, MDA MDA [id number] 09:00:00 11:59:00 TOBI garcia 2021-07-09 2021-07-09 Outpatient BUSHRA STARK, MDA MDA [id number] MD 06:15:00 23:59:00 TOBI garica 2021-07-09 2021-07-09 Outpatient BUSHRA STARK, MDA MDA [id number] 08:12:26 08:12:26 TOBI garcia 2021-07-07 2021-07-07 Outpatient BUSHRA LAM, MDA MDA [id number] 11:58:06 23:59:00 DIRK garcia 2021-07-04 2021-07-04 Outpatient EL VIRGINIA, MDA MDA [id number] 09:40:38 10:17:42 POLA garcia 2021-07-02 2021-07-02 Outpatient EL GENARO, MDA MDA [id number] MD 12:17:59 23:59:00 DIRK garcia 2021-07-02 2021-07-02 Outpatient BUSHRA STARK, MDA MDA [id number] 08:45:00 12:16:00 TOBI garcia 2021-07-02 2021-07-02 Outpatient BUSHRA STARK, MDA MDA [id number] MD 09:58:30 11:55:14 TOBI garcia 2021-06-28 2021-06-28 Outpatient EL MDA MDA [id number] MD 12:56:04 12:56:04 Marc garcia 2021-06-28 2021-06-28 Outpatient EL MDA MDA [id number] MD 12:55:40 12:55:40 Marc o jose 2021-06-28 2021-06-28 Outpatient EL LINCOLN, MDA MDA [id number] MD 12:13:51 12:13:51 TOBI garcia 2021-06-28 2021-06-28 Outpatient DONNELL YEN MDA MDA [id number] MD 08:42:47 11:54:06 Marc garcia 2021-06-28 2021-06-28 Outpatient BUSHRA STARK, MDA MDA [id number] 08:37:10 08:37:10 TOBI garcia 2021-05-31 2021-05-31 Outpatient DONNELL YEN MDA MDA [id number] 11:17:02 14:18:54 Marc garcia 2021-05-29 2021-05-30 Outpatient ER NEMO, MDA Emergency [id number] 20:21:00 16:02:00 JOSS garcia 2021-05-27 2021-05-27 Outpatient EL RHDUONG, MDA Bari/Hep/Nu [id number] 12:07:00 18:13:00 ELIA garcia 2021-05-24 2021-05-24 Outpatient DONNELL YEN MDA MDA [id number] 12:42:07 16:01:58 Marc garcia 2021-05-24 2021-05-24 Outpatient DONNELL YEN MDA MDA [id number] 09:24:51 14:55:28 Marc garcia 2021-05-24 2021-05-24 Outpatient DONNELL YEN MDA MDA [id number] 07:07:26 07:07:26 Marc o jose 2021-05-23 2021-05-23 Outpatient BUSHRA STARK, MDA MDA [id number] MD 14:53:27 23:59:00 BERNARDOALYSHAMELYSSA garcia 2021-05-23 2021-05-23 Outpatient BUSHRA LINCOLN MDA MDA [id number] 14:19:03 14:52:00 BERNARDOALYSHAMELYSSA garcia 2021-05-15 2021-05-15 Outpatient BUSHRA RICKETTS MDA MDA [id number] 12:40:57 14:09:32 NASRIN garcia 2021-05-02 2021-05-02 [facility] ErnestoAziza 1.2.840.1 [id number] Methodi 06:03:00 11:31:[address] 3.430.2.7 Hospit a .3.536048 l .8 2021-05-02 2021-05-02 Anesthesia Mark Hauser 1.2.840.1 [id number] Methodi 10:10:00 10:26:00 Event Nitza Gilmore 30161.1.[address] 3.430.2.7 Hospit a .3.457844 l .8 2021-05-02 2021-05-02 Documentat Kurrelmeyer 1.2.840.1 [id number] Methodi 00:00:00 00:00:[address] Sharona [address]ores 19618.1.[address] Ivanna 3.430.2.7 Hospit a .3.256546 l .8 2021-05-02 2021-05-02 Documentat Kurrelmeyer 1.2.840.1 [id number] Methodi 00:00:00 00:00:[address].1.[address] Ivanna 3.430.2.7 Hospit a .3.449746 l .8 2021-05-02 2021-05-02 Travel 1.2.840.1 1.2.082.370 8058 [id number] Methodi 00:00:00 00:00:[address] 3.430.2.7 0.2.7.3.698 Ho spita .3.231731 084.8 l .8 2021-05-02 2021-05-02 Transcribe Aziza Ramirez 1.2.840.1 [id number] Methodi 00:00:00 00:00:[address] 3.430.2.7 Hospit a .3.135383 l .8 2021-04-26 2021-04-26 [facility] Aziza Ramirez 1.2.840.1 [id number] 165 [id number] Methodi 13:05:51 13:10:[address] 3.430.2.7 Hospit a .3.443878 l .8 2021-04-26 2021-04-26 Travel 1.2.840.1 1.2.726.725 0020 887394 Methodi 00:00:00 00:00:[address] 3.430.2.7 0.2.7.3.698 Ho spita .3.829618 084.8 l .8 2021-04-24 2021-04-24 Travel 1.2.840.1 1.2.708.135 6764 459423 Methodi 00:00:00 00:00:[address] 3.430.2.7 0.2.7.3.698 Ho spita .3.112497 084.8 l .8 2021-04-16 2021-04-16 [facility] Aziza Ramirez 1.2.840.1 [id number] 21 [id number] Methodi 23:59:00 23:59:[address] 3.430.2.7 Hospit a .3.362198 l .8 2021-04-15 2021-04-15 Transcribe Aziza Ramirez 1.2.840.1 [id number] Methodi 00:00:00 00:00:[address] 3.430.2.7 Hospit a .3.584306 l .8 2021-04-10 2021-04-10 Telephone Faraz, 1.2.840.1 [id number] [id number] Methodi 00:00:00 00:00:00 Olive Maria Dolores 60867.1.[address] 3.430.2.7 Hospit a .3.735319 l .8 2021-04-03 2021-04-03 Travel 1.2.840.1 1.2.083.285 4622 983736 Methodi 00:00:00 00:00:[address] 3.430.2.7 0.2.7.3.698 Ho spita .3.595632 084.8 l .8 2021-03-29 2021-03-29 Travel 1.2.840.1 1.2.400.246 5945 716546 Methodi 00:00:00 00:00:[address] 3.430.2.7 0.2.7.3.698 Ho spita .3.639707 084.8 l .8 2021-03-29 2021-03-29 Count Includes [facility] Aziza Ramirez 1.2.840.1 [id number] 2 [id number] Methodi 00:00:00 00:00:[address] 3.430.2.7 Hospit a .3.108023 l .8 2021-02-15 2021-02-16 [facility] Aziza Ramirez 1.2.840.1 [id number] 21 [id number] Methodi 05:59:00 12:49:[address] 3.430.2.7 Hospit a .3.673779 l .8 2021-02-15 2021-02-15 [facility] Aziza Ramirez 1.2.840.1 [id number] 21 [id number] Methodi 08:00:00 23:59:[address] 3.430.2.7 Hospit a .3.003764 l .8 2021-02-15 2021-02-15 Anesthesia Tha Durand 1.2.840.1 [id number] Methodi 07:47:00 11:40:00 Event ShanikaHenrique chand 00266.1.[address] 3.430.2.7 Hospit a .3.194680 l .8 2021-02-15 2021-02-15 Surgery Aziza Ramirez 1.2.840.1 [id number] 309 [id number] Methodi 08:00:00 09:30:[address] 3.430.2.7 Hospit a .3.308501 l .8 2021-02-15 2021-02-15 Travel 1.2.840.1 1.2.696.062 1921 317165 Methodi 00:00:00 00:00:[address] 3.430.2.7 0.2.7.3.698 Ho spita .3.447864 084.8 l .8 2021-02-13 2021-02-13 Travel 1.2.840.1 1.2.502.861 0841 406403 Methodi 00:00:00 00:00:[address] 3.430.2.7 0.2.7.3.698 Ho spita .3.209781 084.8 l .8 2021-02-12 2021-02-12 [facility] Aziza Ramirez 1.2.840.1 [id number] 687 [id number] Methodi 14:56:17 15:01:[address] 3.430.2.7 Hospit a .3.061332 l .8 2021-02-12 2021-02-12 Count Includes [facility] Aziza Ramirez 1.2.840.1 [id number] 2 [id number] Methodi 00:00:00 00:00:[address] 3.430.2.7 Hospit a .3.933947 l .8 2021-02-12 2021-02-12 Travel 1.2.840.1 1.2.112.260 0442 925316 Methodi 00:00:00 00:00:[address] 3.430.2.7 0.2.7.3.698 Ho spita .3.529846 084.8 l .8 2021-01-30 2021-01-30 Travel 1.2.840.1 1.2.193.564 4066 280232 Methodi 00:00:00 00:00:[address] 3.430.2.7 0.2.7.3.698 Ho spita .3.023910 084.8 l .8 2021-01-30 2021-01-30 Transcribe Aziza Ramirez 1.2.840.1 [id number] Methodi 00:00:00 00:00:[address] 3.430.2.7 Hospit a .3.078685 l .8 2020-12-27 2020-12-27 Immunizati Covid [facility] [id number] [id number] [facility] 09:08:48 09:18:48 on Employee, [employer] [facility] [facility] 2020-12-27 2020-12-27 Outpatient EL SLE SLE [id number] [facility]H 00:00:00 00:00:00 2020-11-28 2020-11-28 Outpatient EL SLE SLE [id number] [facility] 00:00:00 00:00:00 2020-11-23 2020-11-23 Outpatient BUSHRA JOHNSTON MDA MDA [id number] 11:00:00 23:59:00 SEJAL garcia 2020-11-23 2020-11-23 Outpatient BUSHRA CORREA MDA MDA [id number] 11:28:02 12:25:08 ANGY garcia 2020-11-13 2020-11-13 Outpatient AZIZA RAMIREZ [facility] [id number] [place] 00:00:00 00:00:[address] 2020-11-09 2020-11-09 Outpatient AZIZA RAMIREZ [facility] [id number] [place] 00:00:00 00:00:[address] 2020-11-06 2020-11-06 Outpatient BUSHRA JOHNSTON, MDA MDA [id number] MD 10:01:36 23:59:00 SEJAL garcia 2020-11-06 2020-11-06 Outpatient DONNELL YEN MDA MDA [id number] 14:58:27 18:23:55 Marc garcia 2020-11-06 2020-11-06 Outpatient BUSHRA LANCE, MDA MDA [id number] 09:00:00 10:00:00 JOSE garcia 2020-10-02 2020-10-02 Outpatient DONNELL YEN MDA MDA [id number] 00:00:00 00:00:00 Marc garcia 2020-10-02 2020-10-02 Outpatient BUSHRA LANCE, MDA MDA [id number] MD 00:00:00 00:00:00 JOSE garcia 2020-09-17 2020-09-17 Outpatient AZIZA RAMIREZ [facility] [id number] [place] 00:00:00 00:00:[address] 2020-07-26 2020-07-26 Outpatient DONNELL YEN MDA MDA [id number] 10:26:51 11:46:47 Marc garcia 2020-05-31 2020-05-31 Outpatient BUSHRA COLEMAN MDA MDA [id number] 09:05:10 15:06:39 POLA garcia 2020-05-29 2020-05-29 Outpatient DONNELL YEN MDA MDA [id number] 13:27:54 14:59:24 Marc garcia 2020-05-28 2020-05-28 Outpatient DONNELL YEN MDA MDA [id number] 14:17:35 23:59:00 Marc garcia 2020-05-28 2020-05-28 Outpatient BUSHRA JOHNSTON, MDA MDA [id number] 13:45:00 14:16:00 SEJAL garcia 2020-05-22 2020-05-22 Outpatient DONNELL YEN MDA MDA [id number] 00:00:00 00:00:00 Marc garcia 2020-05-18 2020-05-18 Outpatient DONNELL YEN MDA MDA [id number] 00:00:00 00:00:00 Marc o jose 2020-05-16 2020-05-16 Outpatient BUSHRA COLEMAN MDA MDA [id number] MD 00:00:00 00:00:00 POLA garcia 2020-05-15 2020-05-15 Outpatient DONNELL YEN MDA MDA [id number] 00:00:00 00:00:00 Marc o n 2019-12-13 2019-12-13 Outpatient AZIZA RAMIREZ [facility] [id number] [place] 00:00:00 00:00:[address] 2019-12-09 2019-12-10 Outpatient AZIZA RAMIREZ [facility] [id number] [place] 00:00:00 00:00:[address] Results Test Description Test Time Test Comments Results Result Comments Source ECG 12 lead 2022-08-29 04:09:51 Test Item Value Reference Range Interpretation Comme nts Ventricular rate (test code = 253) Atrial rate (test code = 255) ID interval (test code = 266) QRSD interval (test code = 260) QT interval (test code = 264) QTC interval (test code = 265) P axis 1 (test code = 267) QRS axis 1 (test code = 268) T wave axis (test code = 270) EKG impression (test code = 273) Sinus bradycardia-Right bundle bra nch block-Left anterior fascicular block-^^^ Bifascicular block ^^^-Cannot rule out Inferior infarct (cited on or before 28-AUG-2022)-Abnormal ECG-In automated comparison with ECG of 21-AUG-2022 14:53,-ID interval has decreased- [facility] Pre/Post [id number] 02:48:43 Test Item Value Reference Range Interpretation Comments Ventricular rate (test code = 253) Atrial rate (test code = 255) ID interval (test code = 266) QRSD interval (test code = 260) QT interval (test code = 264) QTC interval (test code = 265) P axis 1 (test code = 267) QRS axis 1 (test code = 268) T wave axis (test code = 270) EKG impression (test Sinus bradycardia with code = 273) 1st degree AV block-Right bundle branch block-Left anterior fascicular block-^^^ Bifascicular block ^^^-Abnormal [facility] [id number] 16:06:27 Test Item Value Reference Range Interpretation Comments A1C (test code = 5.0 % 4.3-5.6 HbA1c value s >=6.5% are 4548-4) diagnostic of d iabetes mellitus.Diagno sis should be confirmed by repeat testing.Therape utic Action suggested: >8.0 % HbA1c; Goal oftherapy: <7.0% HbA1c [facility]SH2022-09-[facility] 16:01:38 Test Item Value Reference Range Interpretation Comments TSH (test code = 3.29 See_Comment [Automated message] The 23081-1) system which ge nerated this result transmit artis reference range : 0.27 - 4.20 mcunit/mL. The reference range was not used to interpr et this result as felecia l/abnormal. [facility] SoutheastFree [id number] 16:01:37 Test Item Value Reference Range Interpretation Comments T4 Free (test code = 3024-7) 1.21 ng/dL 0.93-1.70 [facility] SoutheastFractionated [id number] 16:05:40 Test Item Value Reference Range Interpretation Comments Bili Total (test 0.8 mg/dL See_Comment Indocyanine Green code = 1975-2) (ICG) may cau se falsely elevate d bilirubin resul ts. Total and direc t bilirubin must not be measured from s amples containing indo cyanine green. False el evation of total biliru bin can be seen in elvia ents with IgG concentrations above 28 g/L.Testing Performed at [facility], [address], [address], [place] [address] [Automate d message] The sy stem which generated this result transmit artis reference range : <=1.2. The refe rence range was not u sed to interpret this result as normal/abnor mal. Bili Direct (test 0.2 mg/dL See_Comment Indocyanin e Green code = 1968-05) (ICG) may cau se falsely elevate d bilirubin resul ts. Total and direc t bilirubin must not be measured from s amples containing indo cyanine green. Testing Performed at [facility], [address], [address], [facility], [place] [address] [Automate d message] The sy stem which generated this result transmit artis reference range : <=0.3. The refe rence range was not u sed to interpret this result as normal/abnor mal. Bili Indirect 0.6 mg/dL 0.0-0.9 Testing Perfor med at (test code = ACB Lab Ambulat ory 1970-11) Care [facility], [address], [place] [address] KATIE (test code = Labs and KATIE) imaging a day prior please. Thanks! [facility] [place]agsboroGlomerular Filtration Rate 2022-03-06 16:05:39 Test Item Value Reference Range Interpretation Comments eGFR-AA (test 101 See_Comment Normal eGFR >= 60 code = mL/min/1.73 m2 Note: 07160-6) The eGFR is kylie culated using the CKD-E PI equation. The e GFR declines with a ge. eGFR <60 mL/min/1.73 m2 is considered as "decreased". Th is equation should only be used for patien ts 18 and older. Acco rding to the National Ki dney Foundation's Ki dney Disease Outcome Quality Initiative (KDO QI) classification and 2012 Kidney Disease Improving Globa l Outcomes (KDIGO ) Clinical Practi ce Guideline, the stage of CKD should be categorized bas ed on estimated GFR. Stage Description GF R mL/min/1.73 m21 Normal or high GFR >=9 02 Mildly decrease d GFR 60-893a Mildly to moderately decr eased GFR 45-593b Mod erately to severely dec reased GFR 30-444 Consuelo rely decreased GFR 1 5-295 Kidney failure <15 Testing Perform ed at [facility], [address], [address], [place], [place] [address] [Automated mess age] The system which ge nerated this result tra nsmitted reference range : >=60 mL/min/1.73 sq. m. The reference range was not used to interpr et this result as normal/abnormal . eGFR-ISRAEL (test 87 See_Comment Normal eGFR > = 60 code = mL/min/1.73 m2 Note: 22928-7) The eGFR is kylie culated using the CKD-E PI equation. The e GFR declines with a ge. eGFR <60 mL/min/1.73 m2 is considered as "decreased". Th is equation should only be used for patien ts 18 and older. Acco rding to the National Ki dney Foundation's dney Disease Outcome Quality Initiative (KDO QI) classification and 2012 Kidney Disease Improving Globa l Outcomes (KDIGO ) Clinical Practi ce Guideline, the stage of CKD should be categorized bas ed on estimated GFR. Stage Description GFR mL/min/1.73 m21 Normal or high GFR >=9 02 Mildly decrease d GFR 60-893a Mildly to moderately decr eased GFR 45-593b Mod erately to severely dec reased GFR 30-444 Consuelo rely decreased GFR 1 5-295 Kidney failure <15 Testing Perform ed at [facility] Lab Ambulat ory Care [facility], [address] [facility], [address], [place], [place] [address] [Automated mess age] The system which ge nerated this result tra nsmitted reference range : >=60 mL/min/1.73 sq. m. The reference range was not used to interpr et this result as normal/abnormal . KATIE (test code Labs and imaging = KATIE) a day prior please. Thanks! [facility] SoutheastUric [id number] 16:05:38 Test Item Value Reference Range Interpretation Comments Uric Acid (test 4.7 mg/dL 3.4-7.0 Testing Perf ormed at code = 3084-1) ACB Lab Ambul atory Care [facility], [address], [place] [address] KAITE (test code Labs and imaging a = KATIE) day prior please. Thanks! [facility] SoutheastTotal [id number] 16:05:37 Test Item Value Reference Range Interpretation Comments Total Protein 7.1 g/dL 6.4-8.3 Testing Perfor med at (test code = ACB Lab Ambulat ory 2885-2) Care Bl, [address], [place] [address] KATIE (test code = Labs and imaging KATIE) a day prior please. Thanks! [facility] SoutheastPhosphorus [id number] 16:05:36 Test Item Value Reference Range Interpretation Comments Phosphorus (test 3.1 mg/dL 2.5-4.5 Testing Per formed code = 2777-1) at [facility], [address], [address], [place], [place] [address] KATIE (test code = Labs and imaging KATIE) a day prior please. Thanks! [facility] SoutheastElectrolyte [id number] 16:05:35 Test Item Value Reference Range Interpretation Comments Sodium Lvl (test 140 See_Comment Testing Per formed at code = 2951-2) [facility] Lab Ambul atory Care [facility], [address], [place] [address] [Automate d message] The sy stem which generated this result transmit artis reference range : 136 - 145 mEq/L. Th e reference range was not used to interpret this result as normal/abnormal . Potassium Lvl 4.2 See_Comment Testing Perfor med at (test code = B Lab Ambulat ory 2823-3) Care [facility], [address], [place] [address] [Automate d message] The sy stem which generated this result transmit artis reference range : 3.5 - 5.1 mEq/L. Th e reference range was not used to interpret this result as normal/abnormal . Chloride (test 105 See_Comment Testing Perfo rmed at code = 2075-0) B [facility], [address], [place] [address] [Automate d message] The sy stem which generated this result transmit artis reference range : 98 - 107 mEq/L. Th e reference range was not used to interpret this result as normal/abnormal . CO2 (test code = 26 See_Comment Testing Per formed at 2028-07) [facility] Lab Ambulat ory Care [facility], [address], [place] [address] [Automate d message] The sy stem which generated this result transmit artis reference range : 22 - 29 mEq/L. The reference range was not used to interpret this result as normal/abnormal . Anion Gap (test 9 See_Comment Testing Perf ormed at code = 59855-0) [facility] Lab [facility], [address], [address], [place] [address] [Automate d message] The sy stem which generated this result transmit artis reference range : 4 - 14 mEq/L. The reference range was not used to interpret this result as normal/abnormal . KATIE (test code = Labs and imaging KATIE) a day prior please. Thanks! [facility] SoutheastMagnesium [id number] 16:05:34 Test Item Value Reference Range Interpretation Comments Magnesium (test 2.0 mg/dL 1.6-2.6 Testing Perf ormed code = 41846-5) at [facility], [address], [place], [place] [address] KATIE (test code = Labs and imaging KATIE) a day prior please. Thanks! [facility] SoutheastLDH2022-05-05 16:05:33 Test Item Value Reference Range Interpretation Comments LDH (test code 159 U/L 135-225 Results great er than = 14532-7) 1651 U/L may no t be reliable due to matrix effect with ext ended dilution as it exceeds the manufacture r s recommended l imit. Caution should be exercised when interpreting mota ch values and done in conjunction wit h clinical contex t. Testing Perform ed at [facility] Lab Ambulat ory Care [facility], [address] [facility] [address], [address], [place] [address] KATIE (test code Labs and imaging = KATIE) a day prior please. Thanks! [facility] SoutheastCalcium [id number] 16:05:32 Test Item Value Reference Range Interpretation Comments Calcium Lvl (test 9.7 mg/dL 8.4-10.2 Testing Pe rformed at code = 51077-3) [facility] Lab [facility], [address] [facility] [address], [address], [place] [address] KATIE (test code = Labs and imaging KATIE) a day prior please. Thanks! [facility] SoutheastAlkaline [id number] 16:05:31 Test Item Value Reference Range Interpretation Comments Alk Phos (test 112 U/L 40-129 Testing Perfo rmed at code = 6768-6) [facility], [address], [place] [address] KATIE (test code Labs and imaging a = KATIE) day prior please. Thanks! [facility] SoutheastAlbumin [id number] 16:05:30 Test Item Value Reference Range Interpretation Comments Albumin Lvl (test 4.1 See_Comment Testing Pe rformed at code = 4763) B [facility], [address], [place] [address] [Automate d message] The sy stem which generated this result transmit artis reference range : 3.5 - 5.2 gm/dL. Th e reference range was not used to interpret this result as normal/abnormal . KATIE (test code = Labs and imaging KATIE) a day prior please. Thanks! [facility] SoutheastAspartate Aminotransferase 2022-03-06 16:05:29 Test Item Value Reference Range Interpretation Comments AST (test code 12 U/L See_Comment Testing Perfo rmed at = 1920-8) [facility], [address], [place] [address] [Automate d message] The sy stem which generated this result transmit artis reference range : <=40. The refer ence range was not u sed to interpret this result as normal/abnor mal. KATIE (test code Labs and imaging a = KATIE) day prior please. Thanks! [facility] SoutheastALT2022-05-05 16:05:28 Test Item Value Reference Range Interpretation Comments ALT (test code 8 U/L See_Comment Testing Perfo rmed at = 1742-6) [facility], [address], [place] [address] [Automate d message] The sy stem which generated this result transmit artis reference range : <=41. The refer ence range was not u sed to interpret this result as normal/abnor mal. KATIE (test code Labs and imaging a = KATIE) day prior please. Thanks! [facility].Serum [id number] 16:05:26 Test Item Value Reference Range Interpretation Comments Creatinine (test 0.84 mg/dL 0.67-1.17 Testing Per formed code = 2160-0) at [facility], [address], [place], [place] [address] KATIE (test code = Labs and imaging KATIE) a day prior please. Thanks! [facility] SoutheastBUN2022-05-05 16:05:25 Test Item Value Reference Range Interpretation Comments BUN (test code 14 mg/dL 6-23 Testing Perfo rmed at = 3094-0) [facility] Lab Ambulat ory Care [facility], [address], [address], [place] [address] KATIE (test code Labs and imaging a = KATIE) day prior please. Thanks! [facility] SoutheastGlucose [id number] 16:05:24 Test Item Value Reference Range Interpretation Comments Glucose Level (test 107 mg/dL 70-99 H Effectiv e 05/28/16, code = 2345-7) the glucose reference intervals have been updated ba sed on [place] Diabetes [employer] guidelines (Standards of Medical Care in Diabetes 2016. Diabetes Care 2016; 39: S13-S22).Fastin g blood glucose:Normal: 70-99 mg/dLImpaired fasting glucose (increased risk for diabetes or pre-diabetes): 100-125 mg/dLDiabetes mellitus: >/=12 6 mg/dL Random bl ood glucose:Normal: 70-199 mg/dLNot e: Random glucose >100 mg/dL is associated with increased risk for diabetes Testin g Performed at [facility], [address], [place] [address] KATIE (test code = KATIE) Labs and imaging a day prior please. Thanks! Lab Interpretation Abnormal (test code = 22619-5) [facility] [id number] 15:55:45 Test Item Value Reference Range Interpretation Comments POC Crea (test 0.8 mg/dL 0.6-1.3 Medications, code = 25428-9) especially h ydroxyurea or supplements, such as ascorbate, c an interfere with test results causing a falsely and significantly h igher result than exp ected. If a problem is suspected with a patient's resul t, a sample should b e sent to the laborato ry for confirmatory te sting. Method descript ion: The i-STAT is a n analyzer used f or in vitro quantific ation of various anal ytes in whole blood. e device uses a s mohan disposable cart ridge which contains microfabricated sensors, a geri bration solution, fluid ics system, and a w aste chamber. Each t est cartridge conta ins chemically sens itive biosensors on a silicon chip th at are configured to p erform specific tests. The microfabricated sensors measure analyte concent ration by an electroch emical assay. POC eGFR-AA (test 103 See_Comment Normal eGF R >= 60 code = 09477-7) mL/min/1.73 m2 The eGFR is calcula artis using the CKD-E PI equation. The e GFR declines with a ge. eGFR <60 mL/min /1.73 m2 is considere d as "decreased" Thi s equation should only be used for pat ients 18 and older. According to National Kidney Foundation's Ki dney Disease Outcome Quality Initiat richardson (KDOQI) classif ication and 2012 Kidney Disease Improvi ng Global Outcomes (KDIGO) Clinica l Practice Guidel ine, the stage of CK D should be categ orized based on estima artis GFR. Stage Desc ription GFR mL/min/1.73 m21 Kidney damage w ith normal or high GFR >=902 Kidney da mage with mild decre ase in GFR 60-893a Mil d to moderate decrea se in GFR 45-593b Mod erate to severe decre ase in GFR 30-444 Consuelo re decrease in GFR 15-295 Kidney failure <15 (or dialysis) [Auto mated message] The sy stem which generated this result transmit artis reference range : >=60 mL/min/1.73 m2. The reference range was not used to int erpret this result as normal/abnormal . POC eGFR-ISRAEL (test 89 See_Comment Normal eG FR >= 60 code = 89396-8) mL/min/1.73 m2 The eGFR is calcula artis using the CKD-E PI equation. The e GFR declines with a ge. eGFR <60 mL/min /1.73 m2 is considere d as "decreased" Thi s equation should only be used for pat ients 18 and older. According to th e National Kidney Foundation's Ki dney Disease Outcome Quality Initiat richardson (KDOQI) classif ication and 2011 Kidney Disease Improvi ng Global Outcomes (KDIGO) Clinica l Practice Guidel ine, the stage of CK D should be categ orized based on estima artis GFR. Stage Desc ription GFR mL/min/1.73 m21 Kidney damage w ith normal or high GFR >=902 Kidney da mage with mild decre ase in GFR 60-893a Mil d to moderate decrea se in GFR 45-593b Mod erate to severe decre ase in GFR 30-444 Consuelo re decrease in GFR 15-295 Kidney f ailure <15 (or dialysi s) [Automated mess age] The system [employer] generated this result transmitted ref erence range: >=60 mL/min/1.73 m2. The reference range was not used to int erpret this result as normal/abnormal . POC Clean Dev Yes (test code = 6672) Performing Lab [facility] (test code = [facility] And chacorta [address]) Clinical Lab, [address], [place], [place] [address]; Chocolate Dipper: Stephany Gilbert MD [facility] MD [facility] [id number] 15:22:39 Test Item Value Reference Range Interpretation Comments Neutrophil % (test 78.2 % 42.0-66.0 H As part o f code = 770-8) Differential performed at [facility], [address], [place], [place] [address] Lymphocyte % (test 6.2 % 24.0-44.0 L code = 736-9) Monocyte % (test code 13.5 % 2.0-7.0 H = 5905-5) Eosinophil % (test 1.5 % 1.0-4.0 code = 713-8) Basophil % (test code 0.4 % 0.0-1.0 = 25806-5) IGRE % (test code = 0.2 % 0.0-0.4 IGRE % c ount 15644-4) includes Metamyelocytes, Myelocytes, and Promyelocytes. As part of Differential performed at [facility], [address], [address], [place], [place] [address] Neutrophil Abs (test 4.07 K/uL 1.70-7.30 code = 751-8) Lymphocyte Abs (test 0.32 K/uL 1.00-4.80 L code = 731-0) Monocyte Abs (test 0.70 K/uL 0.08-0.70 code = 742-7) Eosinophil Abs (test 0.08 K/uL 0.04-0.40 code = 711-2) Basophil Abs (test 0.02 K/uL 0.00-0.10 code = 704-7) IG Abs (test code = 0.01 K/uL 0.00-0.04 50486-4) KATIE (test code = KATIE) Labs and imaging a day prior please. Thanks! Lab Interpretation Abnormal (test code = 58005-5) [facility] [place].[id number] 15:22:28 Test Item Value Reference Range Interpretation Comments WBC (test code = 5.2 K/uL 4.0-11.0 6690-2) RBC (test code = 4.21 See_Comment L [Automated 789-8) message] The sy stem which generated this result transmitted reference range : 4.50 - 6.00 M/u L. The reference r avinash was not used to interpret this result as normal/abnormal . Hgb (test code = 12.9 See_Comment L As part of CBC or 718-7) as an individua l orderable testi ng performed at [facility], [address], [address], [place], [place] [address] [Automated mess age] The system [employer] generated this result transmit artis reference range : 14.0 - 18.0 gm/ dL. The reference r avinash was not used to interpret this result as normal/abnormal . Hct (test code = 38.9 % 40.0-54.0 L As part of CBC or 4544-3) as an individua l orderable testi ng performed at [facility], [facility] [facility], [place], [place] [address] MCV (test code = 92 fL 82-98 787-2) MCH (test code = 30.6 pg 27.0-31.0 785-6) MCHC (test code = 33.2 See_Comment [Automate d 786-4) message] The sy stem which generated this result transmitted reference range : 31.0 - 36.0 gm/ dL. The reference r avinash was not used to interpret this result as normal/abnormal . RDW-SD (test code = 48.9 fL 35.1-46.3 H 71519-1) RDW-CV (test code = 14.5 % 12.0-15.5 788-0) Platelet count (test 159 K/uL 140-440 As part of CBC or code = 777-3) as an individu al orderable testi ng performed at [facility], [address], [address], [place] [address] MPV (test code = 9.9 fL 4.0-10.4 88638-6) INRBC (test code = 0.0 % See_Comment The INRBC 71547-4) (instrument NRB C) value reflects the enumerationof nucleated red b lood cells contained in a 200uL sampleo f whole blood analyzed by the instrument. Thi s value maydiffer from the NRBC v alue reported in a manual differential,wh ich is based on a 1 00 cell differenti al. As part of CBC testing perform ed at [facility] [id number] [facility], [address], [place], [place] [address] [Automated mess age] The system whic h generated this result transmit artis reference range : <=0.0. The reference range was not used to interpret this result as normal/abnormal . KATIE (test code = KATIE) Labs and imaging a day prior please. Thanks! Lab Interpretation Abnormal (test code = 13096-3) [facility]Flow cytometry [id number] 17:16:58 Test Item Value Reference Range Interpretation Comments Case number (test code = [id number]) Flow cytometry evaluation See link below for (test code = 1015583) PDF [facility] [id number] 17:16:58 Test Item Value Reference Range Interpretation Comments Case number (test code = [id number]) Flow cytometry evaluation See link below for (test code = 7457809) PDF Lab Report [facility] Pre/Post [id number] 23:48:42 Test Item Value Reference Range Interpretation Comments Ventricular rate (test code = 253) Atrial rate (test code = 255) ID interval (test code = 266) QRSD interval (test code = 260) QT interval (test code = 264) QTC interval (test code = 265) P axis 1 (test code = 267) QRS axis 1 (test code = 268) T wave axis (test code = 270) EKG impression (test Normal sinus rhythm-Right code = 273) bundle branch block-Left anterior fascicular block-^^^ Bifascicular block ^^^-Cannot rule out Inferior infarct (cited on or before 06-FEB-2016)-Abnormal ECG-In automated comparison with ECG of 13-NOV-2020 12:48,-premature supraventricular complexes are no longer present- [facility] Pre/Post [id number] 23:48:42 Test Item Value Reference Range Interpretation Comments Ventricular rate (test code = 253) Atrial rate (test code = 255) ID interval (test code = 266) QRSD interval (test code = 260) QT interval (test code = 264) QTC interval (test code = 265) P axis 1 (test code = 267) QRS axis 1 (test code = 268) T wave axis (test code = 270) EKG impression (test Normal sinus rhythm-Right code = 273) bundle branch block-Left anterior fascicular block-^^^ Bifascicular block ^^^-Cannot rule out Inferior infarct (cited on or before 06-FEB-2016)-Abnormal ECG-In automated comparison with ECG of 13-NOV-2020 12:48,-premature supraventricular complexes are no longer present- [facility] [id number] 01:42:43 Test Item Value Reference Range Interpretation Comments Interpretation (test Negative results do code = 1072207) not preclude 2019-nCoV infection and should not be used as the sole basis for treatment or other patient management decisions. Negative results must be combined with clinical observations, patient history, and epidemiological information. COVID-19 qualitative Not-Detected Not-Detected RT-PCR result (test code = 78210-9) COVID-19 qualitative See link below for C ase Number: RT-PCR (test code = PDF Lab Report [id number]) [facility] [id number] 01:42:43 Test Item Value Reference Range Interpretation Comments Interpretation (test Negative results do code = 3675897) not preclude 2019-nCoV infection and should not be used as the sole basis for treatment or other patient management decisions. Negative results must be combined with clinical observations, patient history, and epidemiological information. COVID-19 qualitative Not-Detected Not-Detected RT-PCR result (test code = 29620-4) COVID-19 qualitative See link below for C ase Number: RT-PCR (test code = PDF Lab Report [id number]) [facility] (COVID-19) RNA [Presence] in Respiratory specimen by [place] with probe [id number] 20:42:19 Test Item Value Reference Range Interpretation Comments SARS-CoV-2 (COVID-19) RNA Not detected Not-Detected [Presence] in Respiratory specimen by [place] with probe detection (test code = 15817-2) [facility] [id number] (COVID-19) RNA [Presence] in Respiratory specimen by [place] with probe [id number] 21:45:49 Test Item Value Reference Range Interpretation Comments SARS-CoV-2 (COVID-19) RNA Not detected Not-Detected [Presence] in Respiratory specimen by [place] with probe detection (test code = 76838-3) [facility] [id number]-[id number] (COVID-19) RNA [Presence] in Respiratory specimen by [place] with probe [id number] 17:26:47 Test Item Value Reference Range Interpretation Comments SARS-CoV-2 (COVID-19) RNA [Presence] Detected Not-Detected in Respiratory specimen by [place] with probe detection (test code = 57463-1) [facility]
== END 2022-09-01 20:34 | disposition short-term general hospital (02) ==
LOC: ER 19:01
DX: L76.32 Postprocedural hematoma of skin and subcutaneous tissue following other procedure (principal); I10 Essential (primary) hypertension; E03.9 Hypothyroidism, unspecified; I48.91 Unspecified atrial fibrillation; Z79.82 Long term (current) use of aspirin; Z88.8 Allergy status to other drugs, medicaments and biological substances
CPT/HCPCS: 85025; 36415; 85610; 80053; 99285; J3010; J1100; J7030; J2405; J0690